=== PATIENT | male | born 1940 | race Caucasian/White ===

== ENCOUNTER 2022-12-27 12:21 | Inpatient (IN) ==
--- NOTE | 2022-12-27 12:47 | Emergency Department Note ---
Impression & Plan Hypoxia, Atrial fibrillation, Closed left hip fracture ED Provider Note NAME: FREDA [id number] YSABEL AGE: 82 SEX: M : 1940 ARRIVES VIA: Ambulance INFORMANT: Patient ED PROVIDER(S): Luciano Durham DO CHIEF COMPLAINT: fall HPI: Patient is an 82-year-old male who presents to the ER for left hip pain. Per report he fell twice today. He is having left hip pain and cannot get up or move around. Does have a history of dementia. Denies hitting his head or neck. No chest pain or shortness of breath. No belly pain, nausea, vomiting, or diarrhea. No tingling but admits to significant pain with any range of motion of the left hip. No dysuria, urgency, or frequency. PAST MEDICAL HISTORY:See Below PAST SURGICAL HISTORY:See Below FAMILY HISTORY:See Below SOCIAL HISTORY:See Below HOME MEDICATIONS:See Below ALLERGIES:See Below VITALS:See Below PHYSICAL EXAMINATION: GENERAL: Sitting up in bed, alert, well appearing, well nourished, no distress, non-toxic EYE EXAM: normal conjunctiva. PERRL and EOM's grossly intact. OROPHARYNX: no exudate, no erythema, lips, buccal mucosa, and tongue normal and mucous membranes are moist NECK: supple, no nuchal rigidity, no adenopathy, non-tender LUNGS: Clear to auscultation. Normal chest wall mechanics HEART: no murmurs, S1 normal and S2 normal ABDOMEN: abdomen soft, non-tender, normo-active bowel sounds, no masses, no rebound or guarding. BACK: Back is symmetrical on inspection and there is no deformity, no midline tenderness, no CVA tenderness. UPPER EXTREMITIES: upper extremities are grossly normal. LOWER EXTREMITIES: No tenderness throughout palpation of the entire right lower extremity. Tenderness of the left hip with significant pain with any movement. Denies any weakness or numbness. No tenderness throughout the mid femur knee t ib-fib ankle or foot NEURO EXAM: Normal sensorium, cranial nerves II-XII grossly intact, normal spee ch, no gross weakness of arms. MEDICAL DECISION MAKING: Patient is a 2-year-old male who presents ER following a fall. History was obtained from the nursing staff who I contacted at the senior care as well as the guards at bedside and the patient. IV was established blood work was obtained. He was found to be hypoxic consequently remained on 2 L nasal cannula. This is new O2 requirement for him per nursing staff at present. IV was established blood work was obtained. Labs show leukocytosis of 14,000. No significant anemia. INR unremarkable. No external signs of trauma. BMP with a creatinine 1.4. T bili slightly up at 2.5. No belly pain. Troponin was negative. UA was clean. CT of the head was negative. X-rays of the hip and pelvis show a left hip fracture. Patient was updated in regards to these findings. Discussed with Dr. Ortega from orthopedic surgery. Discussed with Lakhwinder Alex in regards to admission and further work-up. External records were reviewed from the senior care. Triage Nursing notes reviewed. Limited review of prior medical records performed Vital Signs: reviewed and remarkable for hypoxia Differential diagnosis: Differential diagnoses include major intracranial, cervical, spinal, thoracic, abdominal, pelvic and neurologic injury. Fracture, contusion, sprain, strain, laceration, abrasions included as well. ER treatment provided: See below Diagnostics interpreted by me include EKG and cardiac monitoring as listed below: -Cardiac Monitoring: An order was placed for continuous cardiac monitoring. The monitor shows a rate of 101 with sinus rhythm. -ECG: A. fib rate of 112 Normal axis No PVCs Nonspecific ST wave changes Poor baseline QTC 480 Septal Q waves -Laboratory studies:Interpreted by me as stated above in MDM and shown below. Imaging studies: Xrays: As interpreted by me: X-rays of the pelvis and left hip show left hip fracture CTs show: CT head was negative Consultation(s): Discussed with Dr. Ortega from orthopedic surgery and he will see the patient. Discussed with Dr. Lakhwinder Alex in regards to admission work-up and further treatment Procedures:none Critical Care: I have personally spent 31 minutes of critical care time in the direct management of this patient. This includes bedside care, interpretation of diagnostic studies, and testing, discussion with consultants, patient, and family members, and other required patient management activities. This 31 minutes is in excess of all separately billable procedures. Past Med/Surg History Medical History (Updated 12/27/22 @ 15:56 by Luciano Durham DO) Atrial fibrillation Cataracts, bilateral Hypertension Periodic headache syndrome Schizophrenia Severe alcohol use disorder Unspecified dementia, unspecified severity, with other behavioral disturbance Social History Smoking Status: Unknown if ever smoked Feels Safe at Home: Yes Allergies Allergies Allergy/AdvReac Type Severity Reaction Status Date / Time No Known Allergies Allergy Unverified 12/27/22 14:23 Home Meds Home Medications Medication Instructions Recorded Confirmed acetaminophen 500 mg tablet 500 mg PO BID 12/27/22 12/27/22 clopidogrel 75 mg tablet 75 mg PO DAILY 12/27/22 12/27/22 diltiazem HCl 180 mg 180 mg PO DAILY 12/27/22 12/27/22 capsule,extended release 24 hr (Cardizem CD) donepezil 5 mg tablet 5 mg PO DAILY 12/27/22 12/27/22 furosemide 40 mg tablet 40 mg PO BID 12/27/22 12/27/22 potassium chloride 20 mEq 20 meq PO BID 12/27/22 12/27/22 tablet,extended release(part/cryst) Results & Data (ED) Vital Signs Vital Signs - 24 hr 12/27/22 12:31 12/27/22 12:45 12/27/22 12:50 Temperature 36.8 C Temperature Source Oral Pulse Rate 104 H 96 H 109 H Pulse Rate from SpO2 Sensor 101 H 108 H Pulse Rhythm Regular Pulse Strength Normal Respiratory Rate 20 23 26 H Respiratory Effort / Characteristics Non-Labored Spontaneous Respiratory Depth Normal Blood Pressure 147/93 H Blood Pressure Mean 111 Blood Pressure Position Lying Pulse Oximetry 90 96 93 Oxygen Delivery Method Room Air Nasal Cannula Nasal Cannula Oxygen Flow Rate 3 3 Sepsis Recent Fever Within 48 Hours No Sepsis New/Unexplained Change in Mental Status No Sepsis Action Taken by Nursing No Action Required 12/27/22 13:00 12/27/22 13:10 12/27/22 13:20 Temperature Temperature Source Pulse Rate 106 H 111 H 107 H Pulse Rate from SpO2 Sensor 102 H Pulse Rhythm Pulse Strength Respiratory Rate 30 H 30 H 24 Respiratory Effort / Characteristics Respiratory Depth Blood Pressure Blood Pressure Mean Blood Pressure Position Pulse Oximetry 93 Oxygen Delivery Method Nasal Cannula Oxygen Flow Rate 3 Sepsis Recent Fever Within 48 Hours Sepsis New/Unexplained Change in Mental Status Sepsis Action Taken by Nursing 12/27/22 13:30 12/27/22 13:40 12/27/22 13:50 Temperature Temperature Source Pulse Rate 104 H 110 H 96 H Pulse Rate from SpO2 Sensor 108 H Pulse Rhythm Pulse Strength Respiratory Rate 29 H 29 H 18 Respiratory Effort / Characteristics Respiratory Depth Blood Pressure Blood Pressure Mean Blood Pressure Position Pulse Oximetry 95 Oxygen Delivery Method Nasal Cannula Oxygen Flow Rate 3 Sepsis Recent Fever Within 48 Hours Sepsis New/Unexplained Change in Mental Status Sepsis Action Taken by Nursing 12/27/22 14:00 12/27/22 14:14 12/27/22 14:20 Temperature Temperature Source Pulse Rate 104 H 106 H 100 H Pulse Rate from SpO2 Sensor 104 H Pulse Rhythm Pulse Strength Respiratory Rate 24 31 H 28 H Respiratory Effort / Characteristics Respiratory Depth Blood Pressure Blood Pressure Mean Blood Pressure Position Pulse Oximetry 93 Oxygen Delivery Method Oxygen Flow Rate Sepsis Recent Fever Within 48 Hours Sepsis New/Unexplained Change in Mental Status Sepsis Action Taken by Nursing 12/27/22 14:30 12/27/22 14:40 12/27/22 14:50 Temperature Temperature Source Pulse Rate 112 H 110 H 104 H Pulse Rate from SpO2 Sensor Pulse Rhythm Pulse Strength Respiratory Rate 26 H 24 26 H Respiratory Effort / Characteristics Respiratory Depth Blood Pressure 152/103 H Blood Pressure Mean 119 Blood Pressure Position Pulse Oximetry 92 Oxygen Delivery Method Room Air Oxygen Flow Rate 3 Sepsis Recent Fever Within 48 Hours Sepsis New/Unexplained Change in Mental Status Sepsis Action Taken by Nursing 12/27/22 15:00 12/27/22 15:10 12/27/22 15:20 Temperature Temperature Source Pulse Rate 109 H 106 H 122 H Pulse Rate from SpO2 Sensor Pulse Rhythm Pulse Strength Respiratory Rate 27 H 20 19 Respiratory Effort / Characteristics Respiratory Depth Blood Pressure Blood Pressure Mean Blood Pressure Position Pulse Oximetry Oxygen Delivery Method Oxygen Flow Rate Sepsis Recent Fever Within 48 Hours Sepsis New/Unexplained Change in Mental Status Sepsis Action Taken by Nursing 12/27/22 15:30 12/27/22 15:40 12/27/22 15:42 Temperature Temperature Source Pulse Rate 108 H 106 H Pulse Rate from SpO2 Sensor 113 H Pulse Rhythm Pulse Strength Respiratory Rate 22 24 29 H Respiratory Effort / Characteristics Respiratory Depth Blood Pressure Blood Pressure Mean Blood Pressure Position Pulse Oximetry 94 Oxygen Delivery Method Oxygen Flow Rate Sepsis Recent Fever Within 48 Hours Sepsis New/Unexplained Change in Mental Status Sepsis Action Taken by Nursing 12/27/22 15:42 Temperature Temperature Source Pulse Rate Pulse Rate from SpO2 Sensor Pulse Rhythm Pulse Strength Respiratory Rate Respiratory Effort / Characteristics Respiratory Depth Blood Pressure 152/103 H Blood Pressure Mean 119 Blood Pressure Position Pulse Oximetry Oxygen Delivery Method Oxygen Flow Rate Sepsis Recent Fever Within 48 Hours Sepsis New/Unexplained Change in Mental Status Sepsis Action Taken by Nursing Laboratory Data 12/27/22 13:02 12/27/22 13:02 Lab Results 12/27/22 12/27/2223 Range/Units 13:02 13:02 13:02 WBC 14.81 H (4.8-10.8) K/ul RBC 5.19 (4.70-6.10) M/uL Hgb 17.1 (14.0-18.0) g/dl Hct 48.9 (42.0-52.0) % MCV 94.2 (80.0-100.0) fL MCH 32.9 (25.0-34.0) pg MCHC 35.0 (32.0-36.0) g/dL RDW Std Deviation 50.7 H (36.4-46.3) fL RDW Coeff of Sammy 14.6 H (11.5-14.5) % Plt Count 132 (130-400) K/uL MPV 13.0 H (9.4-12.4) fL Immature Gran % (Auto) 0.6 % Neut % (Auto) 89.4 % Lymph % (Auto) 3.8 % [place] % (Auto) 5.8 % Eos % (Auto) 0.1 % Baso % (Auto) 0.3 % Neut # (Auto) 13.24 H (1.40-6.50) K/uL Lymph # (Auto) 0.56 L (1.2-3.4) K/uL [place] # (Auto) 0.86 H (0.11-0.59) K/uL Eos # (Auto) 0.01 (0-0.50) K/uL Baso # (Auto) 0.05 (0-0.2) K/uL Immature Gran # (Auto) 0.09 (0.01-0.20) K/uL PT 11.2 (9.0-12.0) Seconds INR 1.1 (0.9-1.1) APTT 27.1 (21.0-31.0) Seconds PTT Ratio 1.0 Sodium 144 (136-145) mmol/L Potassium 3.8 (3.5-5.1) mmol/L Chloride 107 (98-107) mmol/L Carbon Dioxide 29 (21-32) mmol/L Anion Gap 8 (3-11) BUN 25 H (6-23) mg/dl Creatinine 1.41 H (0.6-1.4) mg/dl Est Cr Clr Drug Dosing 51.6 ml/min Est GFR ( Amer) 53.4 ml/min Est GFR (Non-Af Amer) 46.1 ml/min BUN/Creatinine Ratio 17.7 (10-20) Glucose 143 H (70-99(Fasting)) mg/dl Calcium 9.8 (8.5-10.1) mg/dl Total Bilirubin 2.5 H (0.2-1.0) mg/dl AST 22 (13-39) U/L ALT 18 (7-52) U/L Alkaline Phosphatase 43 (34-104) U/L Troponin I High Sens 6.6 (0-20) pg/ml Total Protein 7.5 (6.0-8.3) gm/dl Albumin 4.4 (3.4-5.0) gm/dl Globulin 3.1 (2.5-4.0) gm/dl Albumin/Globulin Ratio 1.4 (0.9-2) Urine Color Urine Appearance (Clear) Urine pH (4.5-7.5) Ur Specific [place] (1.000-1.030) Urine Protein (Negative) Urine Glucose (UA) (Negative) Urine Ketones (Negative) Urine Blood (Negative) Urine Nitrite (Negative) Urine Bilirubin (Negative) Urine Urobilinogen (Negative) Ur Leukocyte Esterase (Negative) Urine WBC (Auto) (0-5) /hpf Urine RBC (Auto) (0-4) /hpf U Hyaline Cast (Auto) (0-5) /lpf U Epithel Cells (Auto) (0-5) /lpf Urine Bacteria (Auto) (Negative) SARS-CoV-2, RNA, NAAT (NEGATIVE) 12/27/22 12/27/22 Range/Units 13:02 15:05 WBC (4.8-10.8) K/ul RBC (4.70-6.10) M/uL Hgb (14.0-18.0) g/dl Hct (42.0-52.0) % MCV (80.0-100.0) fL MCH (25.0-34.0) pg MCHC (32.0-36.0) g/dL RDW Std Deviation (36.4-46.3) fL RDW Coeff of Sammy (11.5-14.5) % Plt Count (130-400) K/uL MPV (9.4-12.4) fL Immature Gran % (Auto) % Neut % (Auto) % Lymph % (Auto) % [place] % (Auto) % Eos % (Auto) % Baso % (Auto) % Neut # (Auto) (1.40-6.50) K/uL Lymph # (Auto) (1.2-3.4) K/uL [place] # (Auto) (0.11-0.59) K/uL Eos # (Auto) (0-0.50) K/uL Baso # (Auto) (0-0.2) K/uL Immature Gran # (Auto) (0.01-0.20) K/uL PT (9.0-12.0) Seconds INR (0.9-1.1) APTT (21.0-31.0) Seconds PTT Ratio Sodium (136-145) mmol/L Potassium (3.5-5.1) mmol/L Chloride (98-107) mmol/L Carbon Dioxide (21-32) mmol/L Anion Gap (3-11) BUN (6-23) mg/dl Creatinine (0.6-1.4) mg/dl Est Cr Clr Drug Dosing ml/min Est GFR ( Amer) ml/min Est GFR (Non-Af Amer) ml/min BUN/Creatinine Ratio (10-20) Glucose (70-99(Fasting)) mg/dl Calcium (8.5-10.1) mg/dl Total Bilirubin (0.2-1.0) mg/dl AST (13-39) U/L ALT (7-52) U/L Alkaline Phosphatase (34-104) U/L Troponin I High Sens (0-20) pg/ml Total Protein (6.0-8.3) gm/dl Albumin (3.4-5.0) gm/dl Globulin (2.5-4.0) gm/dl Albumin/Globulin Ratio (0.9-2) Urine Color Yellow Urine Appearance Clear (Clear) Urine pH 5.5 (4.5-7.5) Ur Specific [place] 1.016 (1.000-1.030) Urine Protein Negative (Negative) Urine Glucose (UA) Negative (Negative) Urine Ketones Negative (Negative) Urine Blood 2+ H (Negative) Urine Nitrite Negative (Negative) Urine Bilirubin Negative (Negative) Urine Urobilinogen Negative (Negative) Ur Leukocyte Esterase Negative (Negative) Urine WBC (Auto) 1-5 (0-5) /hpf Urine RBC (Auto) 10-30 H (0-4) /hpf U Hyaline Cast (Auto) 1-5 (0-5) /lpf U Epithel Cells (Auto) 5-10 H (0-5) /lpf Urine Bacteria (Auto) Negative (Negative) SARS-CoV-2, RNA, NAAT POSITIVE A* (NEGATIVE) Imaging Data Radiologist's Impression: Head CT 12/27/22 12:39 CT head/brain wo con CLINICAL HISTORY: 82 years-old Male with fall. Acute head injury status post fall TECHNIQUE: Multiple axial CT images of the head were obtained without contrast. A dose lowering technique was utilized adhering to the principles of ALARA. CT DOSE: 614.27 mGy.cm COMPARISON: None. FINDINGS: No acute intracranial hemorrhage, midline shift, intracranial mass, hydrocephalus, territorial ischemia or abnormal extra-axial collection. Involutional changes with chronic microvascular ischemic disease. Cerebral vascular calcifications. The calvarium is intact. The paranasal sinuses, mastoid air cells, and middle ear cavities are clear. IMPRESSION: No acute intracranial abnormality or calvarial fracture. ACT 112: Negative or not required by law. The above report was generated using voice recognition software. It may contain grammatical, syntax or spelling errors. Electronically signed by: Espinoza Fung M.D. 12/27/2022 2:25 PM Hip/Pelvis X-Ray 12/27/22 12:39 XR hip LT 2V w pelvis CLINICAL HISTORY: Left hip pain following fall. COMPARISON: None FINDINGS: Right hip arthroplasty is partially imaged. Note is made of an acute displaced left femoral neck fracture. Fracture is angulated. There is a possible bowel containing left inguinal hernia. No additional acute fractures. IMPRESSION: 1. Acute displaced left femoral neck fracture. 2. Possible bowel containing left inguinal hernia. ACT 112: Negative or not required by law. Electronically signed by: Eliseo Wilson M.D. 12/27/2022 2:13 PM Chest X-Ray 12/27/22 12:42 XR chest 1V portable HISTORY: Left hip fracture. fall COMPARISON: None. FINDINGS: No pneumothorax. No pleural effusions. The cardiac silhouette is mildly enlarged. No rib fractures identified. Right apical lobular density is likely related to the normal mediastinal structures on this AP portable study. Questionable focal irregular density overlying the left heart border. IMPRESSION: 1. Mild cardiomegaly. 2. Questionable focal irregular density overlying the left heart border and a right apical lobular density. This may be due to the supine portable technique. Therefore, follow-up PA and lateral views of the chest are recommended once the patient is able to exclude the possibility of pulmonary lesions. ACT 112: Negative or not required by law. Electronically signed by: Kip Alejo M.D. 12/27/2022 2:16 PM Discharge Plan Visit Data Chief Complaint: Fall Stated Complaint: FALL ED Provider: Luciano Durham Discharge Problem: Hypoxia, Atrial fibrillation, Closed left hip fracture Forms Stand Alone Forms: [facility] Prescriptions Prescriptions: No Action furosemide 40 mg Tablet 40 mg PO BID donepezil 5 mg Tablet 5 mg PO DAILY diltiazem HCl [Cardizem CD] 180 mg Capsule,Extended Release 24hr 180 mg PO DAILY clopidogrel 75 mg Tablet 75 mg PO DAILY acetaminophen 500 mg Tablet 500 mg PO BID potassium chloride [K-Dur] 20 mEq Tablet,Er Particles/Crystals 20 meq PO BID Referrals Referrals: Julio GOLD [Primary Care Provider] -
[2022-12-27 13:26] LABS: Basophils # (auto) 0.05 K/uL (0-0.2); Basophils % (auto) 0.3 %; Eosinophils # (auto) 0.01 K/uL (0-0.50); Eosinophils % (auto) 0.1 %; Hematocrit (blood only) 48.9 % (42.0-52.0); Hemoglobin 17.1 g/dl (14.0-18.0); Immature Granulocytes # (auto) 0.09 K/uL (0.01-0.20); Immature Granulocytes % (auto) 0.6 %; Lymphocytes # (auto) 0.56 K/uL (1.2-3.4); Lymphocytes % (auto) 3.8 %; Mean Corpuscular Hemoglobin 32.9 pg (25.0-34.0); Mean Corpuscular Volume 94.2 fL (80.0-100.0); Monocytes # (auto) 0.86 K/uL (0.11-0.59); Monocytes % (auto) 5.8 %; Neutrophils # (auto) 13.24 K/uL (1.40-6.50); Neutrophils % (auto) 89.4 %; Platelet Count 132 K/uL (130-400); RDW Coefficient of Variation 14.6 % (11.5-14.5); RDW Standard Deviation 50.7 fL (36.4-46.3); Red Blood Count 5.19 M/uL (4.70-6.10); White Blood Count 14.81 K/ul (4.8-10.8)
[2022-12-27 13:52] LABS: Appearance Urine Clear (Clear); Bacteria Urine Automated Negative (Negative); Bilirubin Urine Negative (Negative); Blood Urine 2+ (Negative); Color Urine Yellow; Glucose Urine UA Negative (Negative); Ketones Urine Negative (Negative); Leukocyte Esterase Urine Negative (Negative); Nitrite Urine Negative (Negative); Protein Urine Negative (Negative); Specific Gravity Urine 1.016 (1.000-1.030); Urobilinogen Urine Negative (Negative); pH Urine 5.5 (4.5-7.5)
[2022-12-27 13:55] LABS: Albumin Globulin Ratio 1.4 (0.9-2); Albumin Level 4.4 gm/dl (3.4-5.0); BUN Creatinine Ratio 17.7 (10-20); Bilirubin,Total 2.5 mg/dl (0.2-1.0); Calcium 9.8 mg/dl (8.5-10.1); Creatinine Clr Calc Pharmacy 51.6 ml/min; Est GFR (African American) 53.4 ml/min; Est GFR (Non-African American) 46.1 ml/min; Globulin 3.1 gm/dl (2.5-4.0); Potassium 3.8 mmol/L (3.5-5.1); Total Protein 7.5 gm/dl (6.0-8.3)
[2022-12-27 14:06] LABS: INR 1.1 (0.9-1.1); Partial Thromboplastin Time 27.1 Seconds (21.0-31.0); Prothrombin Time 11.2 Seconds (9.0-12.0)
--- NOTE | 2022-12-27 14:09 | History & Physical Report ---
Date of Service December 27, 2022 Assessment & Plan (1) Closed left hip fracture: Plan: Acetaminophen 1 g p.o./IV 3 times daily Morphine 2 to 4 mg IV every 4 hourly as needed Heart healthy diet, n.p.o. after midnight Muro catheter Consult orthopedics for definitive surgical management tomorrow once heart rate is better controlled (2) Hypoxia: Plan: No significant pathology found on chest x-ray - repeat 2 view CXR recommended following hip # surgery Continue incentive spirometer (3) Atrial fibrillation: Plan: This does not appear to be new is listed on his past medical history however he is not on anticoagulation for unclear reasons - unknown reason when calling [facility] Continue diltiazem CD1 180 mg p.o. daily for rate control If heart rate remains elevated after initial IV fluids we will attempt rate control with metoprolol TTE (4) Unspecified dementia, unspecified severity, with other behavioral di sturbance: Plan: Continue donepezil 5 mg p.o. daily (5) Hypertension: Plan: Continue diltiazem CD 180 mg p.o. daily (6) Microscopic hematuria: Plan: Follow-up outpatient, recommend repeating in 4 weeks however suspect due to trauma from Muro catheter on admission (7) Schizophrenia: Plan: Reported history of this however no delusions or hallucinations noted by RN in the [facility] Confirm not treated with antipsychotics Plan VTE Prophylaxis - Lovenox now then hold for operative management tomorrow Diet - heart healthy, NPO after midnight Disposition - admit to med/tele Admission and Anticipated Discharge Date Admission Date: December 27, 2022 History of Present Illness Chief Complaint: Left hip pain following a fall Primary Care Provider: [facility] Tyler Laguerre is an 82 year old on the dementia unit at [facility] who presents to the ER with left hip pain after falling twice today. Unclear history from the patient. He reports slipping while holding onto a sink. Reportedly the toilet and sink are all one piece and somehow he slipped on ur ine. He denies any chest pain, shortness of breath, dizziness prior to falling. Difficulty ambulating with left leg pain after voiding. Reportedly he was complaining of left elbow pain at the present although he denies this currently. He denies any fever, chills, cough, abdominal pain, diarrhea. Allergies Allergy/AdvReac Type Severity Reaction Status Date / Time No Known Allergies Allergy Unverified 12/27/22 14:23 Home Medications Medication Instructions Recorded Confirmed Type acetaminophen 500 mg tablet 500 mg PO BID 12/27/22 12/27/22 History clopidogrel 75 mg tablet 75 mg PO DAILY 12/27/22 12/27/22 History diltiazem HCl 180 mg 180 mg PO DAILY 12/27/22 12/27/22 History capsule,extended release 24 hr (Cardizem CD) donepezil 5 mg tablet 5 mg PO DAILY 12/27/22 12/27/22 History furosemide 40 mg tablet 40 mg PO BID 12/27/22 12/27/22 History potassium chloride 20 mEq 20 meq PO BID 12/27/22 12/27/22 History tablet,extended release(part/cryst) Past Med/Surg History Medical History Atrial fibrillation Cataracts, bilateral Hypertension Periodic headache syndrome Schizophrenia Severe alcohol use disorder Unspecified dementia, unspecified severity, with other behavioral disturbance Social History Smoking Status: Unknown if ever smoked Hx Alcohol Use: No Hx Substance Use: No Preferred Language: Bangladeshi Communication Ability: Effective Candle Wrapper Required: No Beliefs That Will Affect Care: None Current Living Situation: Other Current Living Situation Comment: [facility] Feels Safe at Home: Yes Assistive Devices: Hospital Bed and Oxygen - Continuous Review of Systems Review of Systems: All systems reviewed & are unremarkable except as noted in HPI & below Physical Exam Constitutional: WD/WN, vitals as above Eyes: PERRL, conjunctivae normal, anicteric sclerae Respiratory: normal respiratory effort; no respiratory distress Auscultation: + crackles (bibasal); breath sounds present, no diminished lung sounds, no rales, no rhonchi and no wheezes Cardiovascular: Rate/Rhythm: + tachycardic and + irregularly irregular Heart Sounds: no murmur Extremities: normal capillary refill; no calf tenderness and no pedal edema Gastrointestinal (Abdomen): normal bowel sounds, soft, nontender, no hepatosplenomegaly Musculoskeletal: no cyanosis or clubbing, extremities motor strength 5/5 Skin: no rashes, warm and dry Neurologic: moves all extremities and awake; not confused Motor/Sensory: no sensory deficit Psychiatric: Orientation: alert and oriented to person; + not oriented to place and + not oriented to time Results & Data Results & Data ([facility]) Vital Signs (Past 12 Hours) Vital Signs Temp Pulse Resp BP Pulse Ox O2 Del Method O2 Flow Rate 12/27/22 13:40 110 H 29 H 12/27/22 13:30 104 H 29 H 95 Nasal Cannula 3 12/27/22 13:20 107 H 24 93 Nasal Cannula 3 12/27/22 13:10 111 H 30 H 12/27/22 13:00 106 H 30 H 12/27/22 12:50 109 H 26 H 93 Nasal Cannula 3 12/27/22 12:45 96 H 23 96 Nasal Cannula 3 12/27/22 12:31 36.8 C 104 H 20 147/93 H 90 Room Air Laboratory Results Abnormal lab results 12/27/22 12/27/22 12/27/22 Range/Units 13:02 13:02 13:02 WBC 14.81 H (4.8-10.8) K/ul RDW Std Deviation 50.7 H (36.4-46.3) fL RDW Coeff of Sammy 14.6 H (11.5-14.5) % MPV 13.0 H (9.4-12.4) fL Neut # (Auto) 13.24 H (1.40-6.50) K/uL Lymph # (Auto) 0.56 L (1.2-3.4) K/uL [place] # (Auto) 0.86 H (0.11-0.59) K/uL BUN 25 H (6-23) mg/dl Creatinine 1.41 H (0.6-1.4) mg/dl Glucose 143 H (70-99(Fasting)) mg/dl Total Bilirubin 2.5 H (0.2-1.0) mg/dl Urine Blood 2+ H (Negative) Urine RBC (Auto) 10-30 H (0-4) /hpf U Epithel Cells (Auto) 5-10 H (0-5) /lpf Diagnostic Findings CT head/brain wo con CLINICAL HISTORY: 82 years-old Male with fall. Acute head injury status post fall TECHNIQUE: Multiple axial CT images of the head were obtained without contrast. A dose lowering technique was utilized adhering to the principles of ALARA. CT DOSE: 614.27 mGy.cm COMPARISON: None. FINDINGS: No acute intracranial hemorrhage, midline shift, intracranial mass, hydrocephalus, territorial ischemia or abnormal extra-axial collection. Involutional changes with chronic microvascular ischemic disease. Cerebral vascular calcifications. The calvarium is intact. The paranasal sinuses, mastoid air cells, and middle ear cavities are clear. IMPRESSION: No acute intracranial abnormality or calvarial fracture. XR chest 1V portable HISTORY: Left hip fracture. fall COMPARISON: None. FINDINGS: No pneumothorax. No pleural effusions. The cardiac silhouette is mildly enlarged. No rib fractures identified. Right apical lobular density is likely related to the normal mediastinal structures on this AP portable study. Questionable focal irregular density overlying the left heart border. IMPRESSION: 1. Mild cardiomegaly. 2. Questionable focal irregular density overlying the left heart border and a right apical lobular density. This may be due to the supine portable technique. Therefore, follow-up PA and lateral views of the chest are recommended once the patient is able to exclude the possibility of pulmonary lesions. XR hip LT 2V w pelvis CLINICAL HISTORY: Left hip pain following fall. COMPARISON: None FINDINGS: Right hip arthroplasty is partially imaged. Note is made of an acute displaced left femoral neck fracture. Fracture is angulated. There is a possible bowel containing left inguinal hernia. No additional acute fractures. IMPRESSION: 1. Acute displaced left femoral neck fracture. 2. Possible bowel containing left inguinal hernia. Medications Administered ER medications given: None ECG Indication: tachycardia Rate (beats per minute): 112 Rhythm: atrial fibrillation Findings: no acute ischemic change Comparison ECG Date: no prior available Code Status & VTE Plan Code Status Full VTE Prophylaxis Plan VTE Prophylaxis will be ordered: Yes PG Care Time/CCT Total # of Minutes Spent Total Time Spent with Patient: Total time spent is greater than 50% in coordination of care (as documented) at patient's floor/unit and/or counseling patient: Coding Level of Care Code 94609 INT INP/OBS CARE 2MIN Diagnoses Closed left hip fracture S72.002A Hypoxia R09.02 Atrial fibrillation I48.91 Unspecified dementia, unspecified severity, with other behavioral disturbance F03.918 Hypertension I10 Microscopic hematuria R31.29 Schizophrenia F20.9
--- NOTE | 2022-12-27 14:15 | XRay Report ---
XR hip LT 2V w pelvis CLINICAL HISTORY: Left hip pain following fall. COMPARISON: None FINDINGS: Right hip arthroplasty is partially imaged. Note is made of an acute displaced left femora l neck fracture. Fracture is angulated. There is a possible bowel containing left inguinal hernia. No additional acute fractures. IMPRESSION: 1. Acute displaced left femoral neck fracture. 2. Possible bowel containing left inguinal hernia. ACT 112: Negative or not required by law. Electronically signed by: Eliseo Wilson M.D. 12/27/2022 2:13 PM
--- NOTE | 2022-12-27 14:18 | XRay Report ---
XR chest 1V portable HISTORY: Left hip fracture. fall COMPARISON: None. FINDINGS: No pneumothorax. No pleural effusions. The cardiac silhouette is mildly enlarged. No rib fr actures identified. Right apical lobular density is likely related to the normal mediastinal structur es on this AP portable study. Questionable focal irregular density overlying the left heart border. IMPRESSION: 1. Mild cardiomegaly. 2. Questionable focal irregular density overlying the left heart border and a right apical lobular de nsity. This may be due to the supine portable technique. Therefore, follow-up PA and lateral views of the chest are recommended once the patient is able to exclude the possibility of pulmonary lesions. ACT 112: Negative or not required by law. Electronically signed by: Kip Alejo M.D. 12/27/2022 2:16 PM
--- NOTE | 2022-12-27 14:27 | CT Scan Report ---
CT head/brain wo con CLINICAL HISTORY: 82 years-old Male with fall. Acute head injury status post fall TECHNIQUE: Multiple axial CT images of the head were obtained without contrast. A dose lowering tech nique was utilized adhering to the principles of ALARA. CT DOSE: 614.27 mGy.cm COMPARISON: None. FINDINGS: No acute intracranial hemorrhage, midline shift, intracranial mass, hydrocephalus, territorial ischem ia or abnormal extra-axial collection. Involutional changes with chronic microvascular ischemic disea se. Cerebral vascular calcifications. The calvarium is intact. The paranasal sinuses, mastoid air cells, and middle ear cavities are clear . IMPRESSION: No acute intracranial abnormality or calvarial fracture. ACT 112: Negative or not required by law. The above report was generated using voice recognition software. It may contain grammatical, syntax o r spelling errors. Electronically signed by: Espinoza Fung M.D. 12/27/2022 2:25 PM
[2022-12-27 15:21] LABS: Troponin I High Sensitivity 6.6 pg/ml (0-20)
--- NOTE | 2022-12-27 16:10 | Electrocardiogram Report ---
Test Reason : Blood Pressure : / mmHG Vent. Rate : 112 BPM Atrial Rate : 094 BPM P-R Int : 000 ms QRS Dur : 092 ms QT Int : 352 ms P-R-T Axes : 000 027 -41 degrees QTc Int : 480 ms Poor data quality, interpretation may be adversely affected Atrial fibrillation with rapid ventricular response Septal infarct , age undetermined Abnormal ECG No previous ECGs available Confirmed by Jean-Paul Barrientos ([id number]) on 12/27/2022 4:10:24 PM Referred By: [facility] Confirmed By:Jean-Paul Barrientos
[2022-12-27] MEDS ORDERED: NALOXONE HCL 0.4 MG/1 ML VIAL/CARP IV PRN (16:23)
[2022-12-27] MEDS ORDERED: MAGNESIUM HYDROXIDE SUSP 30 ML UDC PO PRN (16:23)
[2022-12-27] MEDS ORDERED: bisacodyL 10 MG SUPP PR PRN (16:23)
[2022-12-27] MEDS ORDERED: MoRPHine SULFATE 4 MG/ML 1 ML CARP\\VIAL IV PRN (16:23)
[2022-12-27] MEDS ORDERED: MoRPHine SULFATE 2 MG/ML CARP IV PRN (16:23)
--- NOTE | 2022-12-27 17:06 | Anesthesiology Consultation ---
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 Surgery Operation Date: 12/28/22 08:50 Proposed Procedures p Left Cemented Bipolar Arthroplasty - Nathan Ortega MD Height/Weight Height: 5 ft 11 in Weight: 112.8 kg Allergies Allergy/AdvReac Type Severity Reaction Status Date / Time No Known Allergies Allergy Unverified 12/27/22 14:23 Medications Home Medications Medication Instructions Recorded Confirmed Last Taken acetaminophen 500 mg tablet 500 mg PO BID 12/27/22 12/27/22 12/27/22 clopidogrel 75 mg tablet 75 mg PO DAILY 12/27/22 12/27/22 12/27/22 diltiazem HCl 180 mg 180 mg PO DAILY 12/27/22 12/27/22 12/27/22 capsule,extended release 24 hr (Cardizem CD) donepezil 5 mg tablet 5 mg PO DAILY 12/27/22 12/27/22 12/27/22 furosemide 40 mg tablet 40 mg PO BID 12/27/22 12/27/22 12/27/22 potassium chloride 20 mEq 20 meq PO BID 12/27/22 12/27/22 12/27/22 tablet,extended release(part/cryst) Past Medical History Medical History Atrial fibrillation Cataracts, bilateral Hypertension Periodic headache syndrome Schizophrenia Severe alcohol use disorder Unspecified dementia, unspecified severity, with other behavioral disturbance Social History Smoking Status: Unknown if ever smoked Physical Exam Vital Signs Last Vital Signs Temp 98.2 F 12/27/22 12:31 Pulse 124 H 12/27/22 16:50 Resp 23 12/27/22 16:50 BP 164/124 H 12/27/22 16:31 Pulse Ox 94 12/27/22 15:42 O2 Del Method 12/27/22 14:40 O2 Flow Rate 3 12/27/22 14:40 Testing Laboratory Results 12/27/22 13:02 12/27/22 13:02 PT 11.2 Seconds (9.0-12.0) 12/27/22 13:02 INR 1.1 (0.9-1.1) 12/27/22 13:02 APTT 27.1 Seconds (21.0-31.0) 12/27/22 13:02 Urine Color Yellow 12/27/22 13:02 Urine Appearance Clear (Clear) 12/27/22 13:02 Urine pH 5.5 (4.5-7.5) 12/27/22 13:02 Ur Specific [place] 1.016 (1.000-1.030) 12/27/22 13:02 Urine Protein Negative (Negative) 12/27/22 13:02 Urine Glucose (UA) Negative (Negative) 12/27/22 13:02 Urine Ketones Negative (Negative) 12/27/22 13:02 Urine Nitrite Negative (Negative) 12/27/22 13:02 Ur Leukocyte Esterase Negative (Negative) 12/27/22 13:02 Urine WBC (Auto) 1-5 /hpf (0-5) 12/27/22 13:02 Urine RBC (Auto) 10-30 /hpf (0-4) H 12/27/22 13:02 U Hyaline Cast (Auto) 1-5 /lpf (0-5) 12/27/22 13:02 U Epithel Cells (Auto) 5-10 /lpf (0-5) H 12/27/22 13:02 Urine Bacteria (Auto) Negative (Negative) 12/27/22 13:02 Electrocardiogram Date: 12/27/22 Poor data quality, interpretation may be adversely affected Atrial fibrillation with rapid ventricular response, rate 112 bpm Septal infarct , age undetermined Abnormal ECG No previous ECGs available Confirmed by Jean-Paul Barrientos ([id number]) on 12/27/2022 4:10:24 PM Chest X-Ray Date: 12/27/22 FINDINGS: No pneumothorax. No pleural effusions. The cardiac silhouette is mildly enlarged. No rib fractures identified. Right apical lobular density is likely related to the normal mediastinal structures on this AP portable study. Questionable focal irregular density overlying the left heart border. IMPRESSION: 1. Mild cardiomegaly. 2. Questionable focal irregular density overlying the left heart border and a right apical lobular density. This may be due to the supine portable technique. Therefore, follow-up PA and lateral views of the chest are recommended once the patient is able to exclude the possibility of pulmonary lesions.
--- NOTE | 2022-12-27 17:13 | Orthopedic Consultation ---
Date of Service December 27, 2022 Assessment & Plan (1) Closed left hip fracture: Patient is an 82-year-old gentleman with underlying dementia, schizophrenia, hypertension, atrial fibrillation status post an apparent fall with a displaced femoral neck fracture. He has been admitted by the medicine service, he will be medically optimized, and likely and indicated for surgical treatment/cemented bipolar hip arthroplasty. Based on his mental capacity currently I do not think he can give informed consent. Elected contact the [facility] about getting consent. I did try to explain the risk to him and he seemed a pretty not attentive. We will begin DVT prophylax include thigh teds and SCDs. Will keep him n.p.o. up after midnight and hopefully plan on fixing his hip by tomorrow. History of Present Illness Reason for Consultation: . Left hip fracture Requesting Physician: . Attending Physician: Lakhwinder Alex MD . Patient is an 82-year-old prisoner from [place] who presents after having several falls apparently today. Patient is very poor historian with underlying dementia and does not report a fall. Apparently had several falls. He was brought to emergency room where x-rays revealed a left displaced femoral neck fracture. Were consulted for evaluation. He is being admitted by the medicine service. Patient currently denies any particular pains. Allergies Allergy/AdvReac Type Severity Reaction Status Date / Time No Known Allergies Allergy Unverified 12/27/22 14:23 Home Medications Medication Instructions Recorded Confirmed Type acetaminophen 500 mg tablet 500 mg PO BID 12/27/22 12/27/22 History clopidogrel 75 mg tablet 75 mg PO DAILY 12/27/22 12/27/22 History diltiazem HCl 180 mg 180 mg PO DAILY 12/27/22 12/27/22 History capsule,extended release 24 hr (Cardizem CD) donepezil 5 mg tablet 5 mg PO DAILY 12/27/22 12/27/22 History furosemide 40 mg tablet 40 mg PO BID 12/27/22 12/27/22 History potassium chloride 20 mEq 20 meq PO BID 12/27/22 12/27/22 History tablet,extended release(part/cryst) Past Med/Surg History Medical History Atrial fibrillation Cataracts, bilateral Hypertension Periodic headache syndrome Schizophrenia Severe alcohol use disorder Unspecified dementia, unspecified severity, with other behavioral disturbance Social History Smoking Status: Unknown if ever smoked Feels Safe at Home: Yes Review of Systems All systems reviewed & are unremarkable except as noted in HPI & below. Physical Exam . Physical examination reveals a elderly male who is lying in bed. Morbid moderately obese. Examination of the left hip and leg reveals to be slightly shortened and externally rotated. There is no bruising. He does have marked pain with any type of hip motion. He can dorsiflex and plantarflex his foot appropriately. He is neurologically intact. Results & Data Results & Data Laboratory Results . Diagnostic Findings . X-rays of the pelvis and left hip reveal a displaced impacted femoral neck fracture. Minimal arthritic change. PG Care Time/CCT Total # of Minutes Spent Total Time Spent with Patient: Total time spent is greater than 50% in coordination of care (as documented) at patient's floor/unit and/or counseling patient: Coding Level of Care Code INP/OBS CONSULT LVL 5, 80 MIN Diagnoses Closed left hip fracture S72.002A
[2022-12-27] MEDS ORDERED: LACTATED RINGER'S 500 ML IV ONE (19:44)
[2022-12-27] MEDS ORDERED: ENOXAPARIN INJ 40 MG/0.4 ML SYR SQ ONE (20:00)
[2022-12-27] MEDS: DOCUSATE SODIUM/SENNA 50/8.6MG TAB PO SCH (20:43)
[2022-12-27] MEDS: ACETAMINOPHEN 500 MG TAB PO SCH (20:43)
[2022-12-28] MEDS: LACTATED RINGER'S 1,000 ML IV SCH ×3 (01:28→21:34)
[2022-12-28] MEDS: ACETAMINOPHEN 500 MG TAB PO SCH ×3 (08:02→22:29)
[2022-12-28] MEDS: dilTIAZem HCL 180 MG CAPCR PO SCH ×2 (08:02→08:09)
[2022-12-28] MEDS: DONEPEZIL HCL 5 MG TAB PO SCH (08:02)
[2022-12-28] MEDS ORDERED: dilTIAZem HCL 180 MG CAPCR PO SCH (09:00)
--- NOTE | 2022-12-28 09:06 | XCELERA ---
[id number]
[2022-12-28 09:29] LABS: Hemoglobin 15.3 g/dl (14.0-18.0); Mean Corpuscular Hemoglobin 31.9 pg (25.0-34.0); Mean Corpuscular Hgb Conc 33.3 g/dL (32.0-36.0); Mean Platelet Volume 13.3 fL (9.4-12.4); Platelet Count 119 K/uL (130-400); RDW Coefficient of Variation 14.6 % (11.5-14.5); RDW Standard Deviation 51.4 fL (36.4-46.3); Red Blood Count 4.79 M/uL (4.70-6.10); White Blood Count 14.14 K/ul (4.8-10.8)
[2022-12-28 09:41] LABS: BUN Creatinine Ratio 24.4 (10-20); Calcium 9.1 mg/dl (8.5-10.1); Creatinine Clr Calc Pharmacy 57.2 ml/min; Est GFR (African American) 60.6 ml/min; Est GFR (Non-African American) 52.3 ml/min; Potassium 3.8 mmol/L (3.5-5.1)
[2022-12-28 11:02] LABS: Basophils # (auto) 0.05 K/uL (0-0.2); Basophils % (auto) 0.4 %; Eosinophils # (auto) 0.13 K/uL (0-0.50); Eosinophils % (auto) 0.9 %; Immature Granulocytes # (auto) 0.07 K/uL (0.01-0.20); Immature Granulocytes % (auto) 0.5 %; Lymphocytes # (auto) 0.67 K/uL (1.2-3.4); Lymphocytes % (auto) 4.7 %; Monocytes # (auto) 1.23 K/uL (0.11-0.59); Monocytes % (auto) 8.7 %; Neutrophils # (auto) 11.99 K/uL (1.40-6.50); Neutrophils % (auto) 84.8 %
--- NOTE | 2022-12-28 15:46 | Hospitalist Progress Note ---
Date of Service December 28, 2022 Assessment & Plan (1) Closed left hip fracture: Plan: -Acetaminophen 1 g p.o./IV 3 times daily -Morphine 2 to 4 mg IV every 4 hourly as needed -Consent obtained from detention. Ortho proceeding with arthroplasty later today. -Muro catheter in place -DVT prophylaxis post surgical intervention (2) Hypoxia: Plan: -Given COVID-positive status and chest x-ray showing some opacities, possibly some overlying pneumonia on top of COVID-19 -After surgery, will cover with 3rd gen cephalosporin plus azithromycin. -We will consider dexamethasone for treatment of COVID-19 pending oxygen status tomorrow. (3) Atrial fibrillation: Plan: - Borderline not rate controlled with most of his rates being in the low 100s. -We will recheck after surgery. -If he continues to have borderline high heart rate, likely will increase diltiazem dosage. (4) Unspecified dementia, unspecified severity, with other behavioral disturbance: Plan: -Continue donepezil 5 mg p.o. daily (5) Hypertension: Plan: -Continue diltiazem CD 180 mg p.o. daily -Blood pressure has been well controlled since admission. (6) Microscopic hematuria: Plan: -Follow-up outpatient, recommend repeating in 4 weeks however suspect due to trauma from Muro catheter on admission (7) Schizophrenia: Plan: -Reported history of this however no delusions or hallucinations noted by RN in the [facility] -Confirm not treated with antipsychotics Plan VTE Prophylaxis -Lovenox after surgery completion. Diet -currently n.p.o. but heart healthy after surgery. Disposition -med/tele Admission and Anticipated Discharge Date Admission Date: December 27, 2022 Supervising Physician Co-Signing Physician Notes Chart reviewed, case discussed extensively with Dr. Burton When I went to see the patient, he was off the floor to the OR. Unable to personally see. Agree with above. Continue to follow. Subjective Patient seen at bedside this morning. No acute events reported overnight. Patient is pleasantly demented and resting comfortably. Reports no pain at this time. Remembers why he is here and understands that he fell yesterday. Able to state his name and the circumstance, however, gave me the incorrect date but with the correct year. Otherwise no new complaints at this time. Review of Systems Review of Systems: All systems reviewed & are unremarkable except as noted in HPI & below Physical Exam Constitutional: WD/WN, vitals as above Eyes: + anicteric sclerae Neck: normal visual inspection Respiratory: normal respiratory effort Auscultation: + bronchial breath sounds Cardiovascular: Rate/Rhythm: + irregularly irregular Heart Sounds: no murmur Extremities: no edema Gastrointestinal (Abdomen): normal bowel sounds, soft, nontender, no hepatosplenomegaly Musculoskeletal: Left leg shortened and in abduction and external rotation. Skin: no rashes, warm and dry Results & Data Results & Data ([facility]) Vital Signs (Past 12 Hours) Vital Signs Temp Pulse Pulse Resp BP BP Pulse Ox 12/28/22 15:03 37.5 C 97 H 20 125/77 90 12/28/22 12:00 37.0 C 89 20 110/72 90 12/28/22 08:41 12/28/22 08:16 37.0 C 111 H 20 123/85 92 12/28/22 07:03 105 H 12/28/22 06:00 108 H 12/28/22 04:00 Pulse Ox O2 Del Method O2 Del Method O2 Flow Rate O2 Flow Rate 12/28/22 15:03 Nasal Cannula 3 12/28/22 12:00 Nasal Cannula 3 12/28/22 08:41 Nasal Cannula 3 12/28/22 08:16 Nasal Cannula 3 12/28/22 07:03 12/28/22 06:00 12/28/22 04:00 93 Nasal Cannula 3
[2022-12-28] MEDS ORDERED: DEXAMETHASONE SOD INJ 4 MG/ML VIAL ONE (16:59)
[2022-12-28] MEDS ORDERED: LIDOCAINE 2% MPF LOCAL 5 ML VIAL INFIL ONE (16:59)
[2022-12-28] MEDS ORDERED: fentaNYL citrate 100 MCG/2 ML VIAL ONE ×2 (16:59→18:12)
[2022-12-28] MEDS ORDERED: ONDANSETRON INJ 2 MG/ML 2 ML VIAL ONE (16:59)
[2022-12-28] MEDS ORDERED: PROPOFOL IV EMULSION 10 MG/ML 20 ML VIAL IV ONE (16:59)
[2022-12-28] MEDS ORDERED: ROCURONIUM BROMIDE 10 MG/ML 5 ML VIAL IV ONE (16:59)
[2022-12-28] MEDS ORDERED: SUGAMMADEX SODIUM 200 MG/2 ML VIAL IV ONE (17:02)
[2022-12-28] MEDS ORDERED: ceFAZolin 2,000 MG/15 ML IV PUSH IV ONE (17:10)
[2022-12-28] MEDS ORDERED: SUCCINYLCHOLINE CHLORIDE 20 MG/ML 10 ML VIAL IV ONE (17:20)
[2022-12-28] MEDS ORDERED: ceFAZolin 2000MG 2,000 MG/15 ML SYR IV ONE (17:30)
--- NOTE | 2022-12-28 17:35 | History & Physical Bridge Note ---
Date of Service December 28, 2022 History & Physical Bridge Note I have examined the patient, reviewed the History & Physical and in the interval since the performance of the History & Physical I have noted the following changes of clinical significance: no changes noted
[2022-12-28] MEDS ORDERED: VANCOMYCIN HCL 1000MG/20ML VIAL ONE (17:53)
[2022-12-28] MEDS ORDERED: BUPIVACAINE/EPINEPHRINE 0.5% MPF 1:200,000 30 ML VIAL ONE (17:56)
[2022-12-28] MEDS ORDERED: HYDROmorphone INJ 2 MG/ML SYR/VIAL IV PRN (18:00)
[2022-12-28] MEDS ORDERED: ATROPINE SULFATE 0.1 MG/ML 10ML SYR IV PRN ×2 (18:00→19:56)
[2022-12-28] MEDS ORDERED: PROMETHAZINE HCL 12.5 MG in SODIUM CHLORIDE 0.9% 50 ML IV PRN (18:00)
[2022-12-28] MEDS ORDERED: ePHEDrine sulfate 50 MG/ML AMP IV PRN ×2 (18:00→19:56)
[2022-12-28] MEDS ORDERED: ONDANSETRON INJ 2 MG/ML 2 ML VIAL IV PRN (18:00)
[2022-12-28] MEDS ORDERED: fentaNYL citrate 100 MCG/2 ML VIAL IV PRN (18:00)
[2022-12-28] MEDS ORDERED: ePHEDrine sulfate 50 MG/ML SYR ONE (18:11)
[2022-12-28] MEDS ORDERED: LABETALOL HCL IV 5 MG/ML 20ML IV ONE (18:12)
--- NOTE | 2022-12-28 19:25 | Operative Report ---
PG Post Operative Report Pre & Post Diagnosis Operation Date: 12/28/22 11:00 Pre-Op Diagnosis: Left displaced femoral neck/hip Fracture Post-Op Diagnosis: Left displaced femoral neck/hip Fracture I identified the patient and participated in the time-out.: Yes Procedure Operation Date: 12/28/22 11:00 Actual Procedures p Left Cemented Bipolar Arthroplasty(Left) - Nathan Ortega MD Surgeon Nathan Ortega MD Auto Body Customizer Clemente Resendez PA-C Estimated Blood Loss 200 Findings Consistent with Post-Op Diagnosis Fluids 1500 cc Specimens Left femoral head sent for pathology Anesthesia Type General Complications none Disposition Accompanied Patient To Recovery: No Indications Patient is an 82-year-old inmate with significant dementia multiple other medical comorbidities sustained several falls recently. He had cute onset of pain was unable to ambulate. Brought to emergency room where x-rays were displaced femoral neck fracture. Was also found to be COVID-positive. He was admitted to hospital, medically optimized and indicated for surgical treatment. The patient could not give his own consent. We attempted to get this from the facility but they told us just to treat him like he had no family or a homeless person. Therefore we discussed this amongst the physicians and decided that surgical treatment was his best option. We decided proceed with a left cemented bipolar hip arthroplasty. Description of Procedure Operative implants consist of: 1. Malaika size 14 LD fracture fracture stem. 2. 13 mm centralizer. 3. 53 mm bipolar shell and liner. 4. 28 mm +7 neck metal femoral head. 5. Large distal cement restrictor. The patient was taken the operating, identified, placed on the operating table supine position protectors were properly padded. A general anesthetic had been implemented in the holding area due to his COVID status. The patient was then placed in the right lateral decubitus position. Axillary roll was placed. A Stulberg hip positioner was used for positioning. The left hip was then scrubbed with Hibiclens, prepped with ChloraPrep and draped in usual sterile fashion. A posterior lateral posterior left hip was then performed to curvilinear incision centered over the greater trochanter. Sharp dissection was carried through subcutaneous tissue down to the IT band gluteal fascia the IT band gluteal fascia incised longitudinally in line with skin incision. The underlying greater bursa was excised. It was very hemorrhagic posteriorly. The piriformis and external rotators were very carefully taken off the posterior aspect hip joint capsule. Great care was taken throughout the procedure to protect the sciatic nerve at all times. Posterior capsulotomy was then performed leaving flap for later repair. Hip was internally rotated. A femoral neck osteotomy cut was made with Final Cut just below the fracture site. The femoral neck and femoral head were removed. We sized the acetabulum to a 53. Attention drawn the femur. The proximal femur was entered with a Cook cutter followed by canal finder and lateralizing reamer. Then broached beginning with size 10 and progressing up to a 15. The 15 was pretty tight therefore we used a 14 stem. We trialed the hip and the +7 articular ball seem provide the most appropriate stability and leg lengths. We elect to place these implants. All trial implants were removed. A large cement root restrictor was placed distally. Double batch Palacos G cement was mixed. I did add an additional gram of vancomycin due to his medical issues and comorbidities. We injected the canal. A size 14 stem was placed. Once the cement hardened a +7/28 mm articular ball was placed with a 53 bipolar shell and liner. Hip was located once again found to be stable. Attention drawn toward closing. The posterior capsule was very meticulously repaired to provide moderate maximum stability. The IT band gluteal fascia then closed with in 1 PDS suture running fashion for subcutaneous tissues then closed with 2 layers the deep layer #1 Vicryl suture subcutaneous tissues with 2-0 Dexon suture in a buried interrupted fashion. Skin was closed skin annita. Leg was then cleaned and dried a sterile dressing was Xeroform, 4 x 4's, sterile ABD pad and foam tape was applied. The patient then transferred to the recovery room intubated where he was extubated. Patient tolerated procedure well no complications. Clemente Resendez, my physician foundation assistant, was present for the entire procedure. His assistance was essential and required for appropriate patient positioning, prepping and draping, surgical exposure, performing the technical details of the operation, placement the implants, closure of the wound, and placement of the sterile bandage. I attest to the content of the Intraoperative Record and any orders documented therein. Any exceptions are noted below.
--- NOTE | 2022-12-28 19:58 | Anesthesiology Progress Note ---
Date of Service December 28, 2022 Anesthesia Post Procedure Vital Signs Vital Signs: Temp Pulse Pulse Pulse Resp BP BP 12/28/22 19:40 91 H 20 123/87 12/28/22 19:30 86 21 121/81 12/28/22 19:20 36.6 C 93 H 21 109/81 12/28/22 16:50 36.3 C L 91 H 16 138/94 12/28/22 15:58 101 H 12/28/22 15:03 37.5 C 97 H 20 125/77 12/28/22 12:00 37.0 C 89 20 110/72 12/28/22 08:41 12/28/22 08:16 37.0 C 111 H 20 123/85 12/28/22 07:03 105 H 12/28/22 06:00 108 H 12/28/22 04:00 12/28/22 02:34 37.1 C 118 H 18 136/88 12/28/22 00:00 37.4 C 12/27/22 22:00 108 H 12/27/22 23:53 12/27/22 21:51 12/27/22 21:49 38.1 C H 109 H 20 147/90 H 12/27/22 20:23 Pulse Ox Pulse Ox O2 Del Method O2 Del Method O2 Flow Rate O2 Flow Rate 12/28/22 19:40 94 Oxymask 5 12/28/22 19:30 94 Oxymask 5 12/28/22 19:20 98 Oxymask 8 12/28/22 16:50 95 Nasal Cannula 3 12/28/22 15:58 12/28/22 15:03 90 Nasal Cannula 3 12/28/22 12:00 90 Nasal Cannula 3 12/28/22 08:41 Nasal Cannula 3 12/28/22 08:16 92 Nasal Cannula 3 12/28/22 07:03 12/28/22 06:00 12/28/22 04:00 93 Nasal Cannula 3 12/28/22 02:34 93 Nasal Cannula 3 12/28/22 00:00 12/27/22 22:00 12/27/22 23:53 96 Nasal Cannula 3 12/27/22 21:51 Nasal Cannula 3 12/27/22 21:49 96 Nasal Cannula 3 12/27/22 20:23 94 Room Air Transfer of Care Handoff Completed per policy Notes Mental Status: alert / awake / arousable and participated in evaluation Patient Amnestic to Procedure: Yes Nausea / Vomiting: adequately controlled Pain: adequately controlled Airway Patency, RR, SpO2: stable & adequate BP & HR: stable & adequate Hydration State: stable & adequate Anesthetic Complications: no major complications apparent
[2022-12-28] MEDS: SODIUM CHLORIDE 0.9% 1000ML 1,000 ML IV SCH (22:28)
[2022-12-28] MEDS: DOCUSATE SODIUM/SENNA 50/8.6MG TAB PO SCH (22:28)
[2022-12-28] MEDS: ASPIRIN 81 MG ECTAB PO SCH (22:29)
[2022-12-29] MEDS: ceFAZolin 2000MG 2,000 MG/15 ML SYR IV SCH ×2 (02:14→09:13)
[2022-12-29] MEDS ORDERED: REMDESIVIR 200 MG in SODIUM CHLORIDE 0.9% 210 ML IV STA (07:09)
--- NOTE | 2022-12-29 07:47 | Progress Notes ---
DATE OF SERVICE: 12/29/2022. SUBJECTIVE: An 82-year-old inmate, postoperative day 1 from a left cemented bipolar hip arthroplasty for fracture. He is lying in bed. Denies any real significant pain this morning. Does have underl fernandez dementia. OBJECTIVE: VITAL SIGNS: Temperature 36.8. Vital signs are stable. GENERAL: Shows an elderly male. He is lying in bed, handcuffed to the bed. EXTREMITIES: Examination of the left hip reveals leg lengths to be equal. Dressing is clean, dry an d intact. He can dorsiflex and plantarflex his foot on command. His hip is located. He is neurolog ically intact. LABORATORY DATA: Hemoglobin is pending. Labs are pending. ASSESSMENT: An 82-year-old gentleman with multiple medical comorbidities, postop day 1 from left bip olar hip arthroplasty for fracture. He has got underlying dementia. His pain seems to be controlled . Hip is located. He is neurologically intact. PLAN: 1. DVT prophylaxis includes thigh-high TEDs, SCDs, and aspirin twice a day. Does have atrial fibril lation, but not on anticoagulation. We would recommend a baby aspirin twice a day for 6 weeks. 2. PT/OT, weightbear as tolerated. Total hip precautions, although it is unlikely he will follow pranay. 3. Pain management, seems to be doing okay with current pain regimen. 4. Disposition: He will be orthopedically okay for discharge any time medically stable. I need to see him back in 2-3 weeks out from surgery date. He does need to obey hip precautions. He can weigh t bear as tolerated. Any orthopedic questions can be directed to me at [phone]. Job ID: [id number]
[2022-12-29] MEDS: dexAMETHasone 6 MG in SYRINGE 0 ML IV SCH (07:52)
[2022-12-29] MEDS: dilTIAZem HCL 180 MG CAPCR PO SCH (07:55)
[2022-12-29] MEDS: ACETAMINOPHEN 500 MG TAB PO SCH ×3 (07:55→20:50)
[2022-12-29] MEDS: ASPIRIN 81 MG ECTAB PO SCH ×2 (07:55→20:50)
[2022-12-29] MEDS: DONEPEZIL HCL 5 MG TAB PO SCH (07:55)
--- NOTE | 2022-12-29 08:15 | XRay Report ---
LEFT HIP 2 VIEWS CLINICAL HISTORY: Postoperative examination. FINDINGS: AP and crosstable lateral views of the left hip are compared to study dated 12/27/2022. The skeletal structures are osteopenic. A left hip arthroplasty is in near anatomic alignment. No acute f racture is seen involving the left hip or the visualized left hemipelvis. Skin clips, subcutaneous ga s, and soft tissue swelling overlying the left hip are expected postoperative changes. There is degen erative sclerosis of the left sacroiliac joint and the pubic symphysis. Bowel projecting over the linda in is likely located within a large internal hernia. IMPRESSION: 1. Expected postoperative findings status post left hip arthroplasty. No acute fracture seen. 2. Bowel projecting over the groin is likely contained within a large inguinal hernia. Clinical corre lation will be required. Electronically signed by: Ranjith Jacobson M.D. 12/29/2022 8:13 AM
[2022-12-29 08:17] LABS: Basophils # (auto) 0.01 K/uL (0-0.2); Basophils % (auto) 0.1 %; Hematocrit (blood only) 41.2 % (42.0-52.0); Hemoglobin 13.7 g/dl (14.0-18.0); Immature Granulocytes # (auto) 0.12 K/uL (0.01-0.20); Immature Granulocytes % (auto) 0.8 %; Lymphocytes # (auto) 0.43 K/uL (1.2-3.4); Lymphocytes % (auto) 2.8 %; Mean Corpuscular Hemoglobin 32.6 pg (25.0-34.0); Mean Corpuscular Hgb Conc 33.3 g/dL (32.0-36.0); Mean Corpuscular Volume 98.1 fL (80.0-100.0); Mean Platelet Volume 13.5 fL (9.4-12.4); Monocytes # (auto) 1.01 K/uL (0.11-0.59); Monocytes % (auto) 6.5 %; Neutrophils # (auto) 14.03 K/uL (1.40-6.50); Neutrophils % (auto) 89.8 %; Platelet Count 103 K/uL (130-400); RDW Coefficient of Variation 14.6 % (11.5-14.5); RDW Standard Deviation 52.9 fL (36.4-46.3)
[2022-12-29 08:56] LABS: Calcium 8.5 mg/dl (8.5-10.1)
[2022-12-29 09:02] LABS: BUN Creatinine Ratio 30.6 (10-20); Creatinine Clr Calc Pharmacy 66.2 ml/min; Est GFR (African American) 71.3 ml/min; Est GFR (Non-African American) 61.5 ml/min
[2022-12-29] MEDS: AZITHROMYCIN 500 MG in DEXTROSE 5% 250 ML IV SCH (09:13)
[2022-12-29] MEDS ORDERED: ERGOCALCIFEROL 50,000 UNITS 1250 MCG CAP PO SCH (09:15)
[2022-12-29] MEDS: SODIUM CHLORIDE 0.9% 1000ML 1,000 ML IV SCH (09:51)
--- NOTE | 2022-12-29 10:17 | XRay Report ---
XR chest 2V PA/lateral HISTORY: Hypoxia/ Covid COMPARISON: Chest 12/27/2022. FINDINGS: No pneumothorax. The cardiac silhouette remains mildly enlarged. There are trace bilateral pleural effusions with mild congestive change. The right apical lobular density favors the normal pul monary vessels. Small linear scarlike density overlying the left heart border has improved. No new fo marly lung consolidations identified. IMPRESSION: 1. Cardiomegaly with mild pulmonary vascular congestion and trace bilateral pleural effusions. 2. Improvement in the lobular density within the right medial lung apex which may represent the lucina l pulmonary vessels. This can be confirmed with follow-up chest CT. ACT 112: Negative or not required by law. Electronically signed by: Kip Alejo M.D. 12/29/2022 10:16 AM
[2022-12-29] MEDS: CHOLECALCIFEROL 1,000 UNITS 25 MCG TAB PO SCH (11:53)
--- NOTE | 2022-12-29 13:38 | Hospitalist Progress Note ---
Date of Service December 29, 2022 Assessment & Plan (1) Closed left hip fracture: Plan: -Acetaminophen 1 g p.o./IV 3 times daily -Morphine 2 to 4 mg IV every 4 hourly as needed -Error in documentation yesterday: Consent from long-term was not obtained. Consent was based off of two physician decision making determined that this was the patient's best and most beneficial course of action to reduce mortality. -Status post arthroplasty on 12/28/2022. Tolerated procedure well. -Appreciate orthopedic recommendations. -PT and OT consults in. -Muro catheter in place -DVT prophylaxis-Lovenox 40 mg twice daily due to COVID. (2) Hypoxia: Plan: -Given COVID-positive status and chest x-ray showing some opacities, possibly some overlying pneumonia on top of COVID-19 -Started azithromycin and ceftriaxone for possible pneumonia. -Due to worsening oxygen saturations today, started dexamethasone and remdesivir for inpatient COVID-19 treatment. -Repeat chest x-ray today did show some vascular congestion. Patient was on IV fluids, these were discontinued. -We will hold off diuretics for now. If still requiring oxygen supplementation and appears hypervolemic, will begin them tomorrow. (3) Atrial fibrillation: Plan: - Rate controlled with current diltiazem dosage. Continue. (4) Unspecified dementia, unspecified severity, with other behavioral disturbance: Plan: -Continue donepezil 5 mg p.o. daily (5) Hypertension: Plan: -Continue diltiazem CD 180 mg p.o. daily -Blood pressure has been well controlled since admission. (6) Microscopic hematuria: Plan: -Follow-up outpatient, recommend repeating in 4 weeks however suspect due to trauma from Muro catheter on admission (7) Schizophrenia: Plan: -Reported history of this however no delusions or hallucinations noted by RN in the [facility] -Confirm not treated with antipsychotics Plan VTE Prophylaxis -Lovenox (COVID) Diet -heart healthy with pured foods. Disposition -med/tele CODE STATUS: Full code Admission and Anticipated Discharge Date Admission Date: December 27, 2022 Supervising Physician Co-Signing Physician Notes I personally examined the patient and verified all cornell points of history and exam, discussed case, and agree with decision making with Dr Burton Feeling okay. Denies any shortness of breath, denies any significant hip pain. Vitals noted, in general he is awake and alert pleasant resting comfortably in bed on about 3 L nasal cannula. No distress. HEENT normocephalic atraumatic mucous membranes moist. Lungs diminished throughout but no rales rhonchi or wheezes moderate effort no accessory muscle use no conversational dyspnea. Hip fracturestatus post repairprobably osteoporotic. Outpatient bone health work-up and management. Pneumonia with acute hypoxic respiratory failure and sepsis present on admissionCOVID versus community-acquired versus elements of both. Managing as both. Fortunately fairly stable overall, but did have increasing oxygen requirement todayhence escalation of care. Hopefully will improve on steroids. Continue antibiotics and steroids as well as supportive care. Risk due to hypoxic respiratory failure Subjective Patient seen at bedside this morning. No acute events reported overnight. Patient seems to have tolerated procedure well yesterday. He was on increased oxygen requirements requiring oxygen mask which is more than he required yesterday. Overall seems to have pain under control. Reported by nursing today: Had difficulty with swallowing his vitamin D supplement and felt that he was going to choke. Nursing suggested speech evaluation consult. This order was placed. Otherwise no new complaints today. Review of Systems Review of Systems: All systems reviewed & are unremarkable except as noted in HPI & below Physical Exam Constitutional: WD/WN, vitals as above Eyes: + anicteric sclerae Neck: normal visual inspection Respiratory: normal respiratory effort Auscultation: + crackles and + bro nchial breath sounds Cardiovascular: Rate/Rhythm: + irregularly irregular Heart Sounds: no murmur Extremities: no edema Gastrointestinal (Abdomen): normal bowel sounds, soft, nontender, no hepatosplenomegaly Skin: no rashes, warm and dry Psychiatric: Orientation: alert Results & Data Results & Data ([facility]) Vital Signs (Past 12 Hours) Vital Signs Temp Pulse Pulse Pulse Resp BP Pulse Ox 12/29/22 08:00 12/29/22 08:38 12/29/22 07:17 93 H 12/29/22 06:24 36.8 C 86 18 145/82 H 97 12/29/22 04:00 36.8 C 87 18 124/76 96 12/29/22 02:15 37.2 C 87 20 122/78 96 Pulse Ox O2 Del Method O2 Del Method O2 Flow Rate O2 Flow Rate 12/29/22 08:00 97 Nasal Cannula 4 12/29/22 08:38 Nasal Cannula 4 12/29/22 07:17 12/29/22 06:24 Oxymask 4 12/29/22 04:00 Oxymask 4 12/29/22 02:15 Oxymask 4
[2022-12-29] MEDS: ENOXAPARIN INJ 40 MG/0.4 ML SYR SQ SCH (14:43)
--- NOTE | 2022-12-29 18:36 | Billing Data ---
Date of Service December 29, 2022 Coding Level of Care Code 17116 SUB INP/OBS CARE MIN
[2022-12-29] MEDS: DOCUSATE SODIUM/SENNA 50/8.6MG TAB PO SCH (20:50)
[2022-12-30] MEDS: ENOXAPARIN INJ 40 MG/0.4 ML SYR SQ SCH (01:53)
--- NOTE | 2022-12-30 07:00 | Hospitalist Progress Note ---
Date of Service December 30, 2022 Assessment & Plan (1) Closed left hip fracture: Plan: -Acetaminophen 1 g p.o./IV 3 times daily -Morphine 2 to 4 mg IV every 4 hourly as needed -Status post arthroplasty on 12/28/2022. Tolerated procedure well. -Appreciate orthopedic recommendations. -PT and OT consults in - patient will continue PT/OT here and can consider return to [facility] with home health if continues to improve -Muro catheter in place -DVT prophylaxis-Aspirin BID per Ortho, in addition to Lovenox 40 mg daily due to COVID-19 - will need osteoporosis treatment as outpatient given ground-level fall/fracture - consider bisphosphonate. Defer to PCP at [facility] (2) Hypoxia: Plan: -Given COVID-positive status and chest x-ray showing some opacities, possibly some overlying pneumonia on top of COVID-19 -Started azithromycin and ceftriaxone for possible pneumonia - today is day 2 of both -On 12/29 started Decadron 6mg IV daily and Remdesivir x5 days -Repeat chest x-ray on 12/29 did show some vascular congestion. Patient was on IV fluids, these were discontinued on 12/29 - will add Lasix 40mg IV today, consider further diuretics tomorrow (3) Atrial fibrillation: Plan: - Rate controlled with current diltiazem dosage. Continue. (4) Unspecified dementia, unspecified severity, with other behavioral distur bance: Plan: -Continue donepezil 5 mg p.o. daily (5) Hypertension: Plan: -Continue diltiazem CD 180 mg p.o. daily -Blood pressure has been well controlled since admission. (6) Microscopic hematuria: Plan: -Follow-up outpatient, recommend repeating in 4 weeks however suspect due to trauma from Muro catheter on admission (7) Schizophrenia: Plan: -Reported history of this however no delusions or hallucinations noted [facility] -Confirm not treated with antipsychotics Plan VTE Prophylaxis -Lovenox (COVID) and ASA BID Diet -heart healthy with pured foods. CODE STATUS: Full code Disposition -med/tele. NOTE: patient has Plavix listed in home med list but unclear reason for this. Will defer to patient's physician in [facility] to determine timing of re-starting Plavix although this may need to be done sooner rather than later depending on indication (will be discharged on ASA BID x6 weeks for ortho DVT ppx as well) Admission and Anticipated Discharge Date Admission Date: December 27, 2022 Supervising Physician Co-Signing Physician Notes I personally examined the patient and verified all cornell points of history and exam, discussed case, and agree with decision making with Dr Hampton feels OK breathing OK no hip pain. Hip fracturestatus post repairprobably osteoporotic. Outpatient bone health work-up and management. stable in this respect Pneumonia with acute hypoxic respiratory failure and sepsis present on admissionCOVID versus community-acquired versus elements of both. Managing as both. Also acute HFpEF todayimproved with Lasix. Hypoxia now improved. High risk due to hypoxia requiring intravenous diuretics. Fortunately improving Subjective Patient reports that he feels his breathing has improved slightly albeit with supplemental O2. Hip pain controlled with Tylenol. Review of Systems Review of Systems: All systems reviewed & are unremarkable except as noted in HPI & below Physical Exam Physical Exam: General: A&Ox3. NAD. Cooperative. HEENT: Atraumatic, normocephalic. Pulm: Decreased bibasilar aeration with occasional expiratory rhonchi. Symmetrical chest rise. No increase work of breathing. No respiratory distress. Cardiac: RRR, -mrg. Radial pulses intact and symmetrical. No JVD. No LE edema. Abdominal: soft, non-tender, non-distended, BS x 4 Skin: warm, dry, no rash Results & Data Results & Data ([facility]) Vital Signs (Past 12 Hours) Vital Signs Temp Pulse Pulse Resp BP Pulse Ox Pulse Ox 12/30/22 04:00 36.7 C 84 18 124/83 93 12/30/22 04:00 94 12/30/22 00:00 94 12/30/22 00:00 94 H 12/29/22 23:00 36.9 C 96 H 18 144/82 H 94 12/29/22 20:00 12/29/22 20:00 96 O2 Del Method O2 Del Method O2 Flow Rate O2 Flow Rate 12/30/22 04:00 Nasal Cannula 4 12/30/22 04:00 Nasal Cannula 3.5 12/30/22 00:00 Nasal Cannula 3.5 12/30/22 00:00 12/29/22 23:00 Nasal Cannula 4 12/29/22 20:00 Nasal Cannula 12/29/22 20:00 Nasal Cannula 3.5 Resident Activity Tracking Resident Involvement: Resident Care Provided Care Provided: Adult Hospital Medicine
[2022-12-30 08:43] LABS: Basophils # (auto) 0.01 K/uL (0-0.2); Basophils % (auto) 0.1 %; Hematocrit (blood only) 38.2 % (42.0-52.0); Hemoglobin 12.8 g/dl (14.0-18.0); Immature Granulocytes # (auto) 0.13 K/uL (0.01-0.20); Immature Granulocytes % (auto) 0.8 %; Lymphocytes # (auto) 0.51 K/uL (1.2-3.4); Lymphocytes % (auto) 3.1 %; Mean Corpuscular Hemoglobin 32.1 pg (25.0-34.0); Mean Corpuscular Hgb Conc 33.5 g/dL (32.0-36.0); Mean Corpuscular Volume 95.7 fL (80.0-100.0); Mean Platelet Volume 13.6 fL (9.4-12.4); Monocytes # (auto) 1.27 K/uL (0.11-0.59); Monocytes % (auto) 7.6 %; Neutrophils # (auto) 14.69 K/uL (1.40-6.50); Neutrophils % (auto) 88.4 %; Platelet Count 106 K/uL (130-400); RDW Coefficient of Variation 14.6 % (11.5-14.5); RDW Standard Deviation 52.1 fL (36.4-46.3); Red Blood Count 3.99 M/uL (4.70-6.10); White Blood Count 16.61 K/ul (4.8-10.8)
[2022-12-30 08:47] LABS: BUN Creatinine Ratio 37.7 (10-20); C Reactive Protein 16.94 mg/dl (0-0.5); Calcium 8.8 mg/dl (8.5-10.1); Creatinine Clr Calc Pharmacy 69.2 ml/min; Est GFR (African American) 75.4 ml/min; Magnesium 2.2 mg/dl (1.7-2.4); Potassium 4.2 mmol/L (3.5-5.1)
[2022-12-30] MEDS: dilTIAZem HCL 180 MG CAPCR PO SCH (09:57)
[2022-12-30] MEDS: ASPIRIN 81 MG ECTAB PO SCH ×2 (09:57→21:30)
[2022-12-30] MEDS: CHOLECALCIFEROL 1,000 UNITS 25 MCG TAB PO SCH (09:57)
[2022-12-30] MEDS: AZITHROMYCIN 500 MG in DEXTROSE 5% 250 ML IV SCH (09:58)
[2022-12-30] MEDS: cefTRIAXone SODIUM 2,000 MG in DEXTROSE 5% 50 ML IV SCH (09:58)
[2022-12-30] MEDS: DONEPEZIL HCL 5 MG TAB PO SCH (09:58)
[2022-12-30] MEDS: ACETAMINOPHEN 500 MG TAB PO SCH ×3 (09:58→21:30)
[2022-12-30] MEDS ORDERED: FUROSEMIDE 40 MG/4 ML VIAL IV ONE (11:15)
[2022-12-30] MEDS: dexAMETHasone 6 MG in SYRINGE 0 ML IV SCH (11:27)
[2022-12-30] MEDS: REMDESIVIR 100 MG in SODIUM CHLORIDE 0.9% 230 ML IV SCH (14:40)
--- NOTE | 2022-12-30 17:39 | Billing Data ---
Date of Service December 30, 2022 Coding Level of Care Code 03541 SUB INP/OBS CARE
[2022-12-30] MEDS: DOCUSATE SODIUM/SENNA 50/8.6MG TAB PO SCH (22:20)
[2022-12-31] MEDS ORDERED: ONDANSETRON INJ 2 MG/ML 2 ML VIAL IV PRN (00:05)
[2022-12-31] MEDS: POLYETHYLENE (MIRALAX) 17 GM PACK PO SCH ×4 (01:11→15:09)
[2022-12-31] MEDS: cefTRIAXone SODIUM 2,000 MG in DEXTROSE 5% 50 ML IV SCH (07:59)
[2022-12-31] MEDS: ACETAMINOPHEN 500 MG TAB PO SCH ×4 (07:59→20:36)
[2022-12-31] MEDS: dexAMETHasone 6 MG in SYRINGE 0 ML IV SCH (08:00)
[2022-12-31] MEDS: ASPIRIN 81 MG ECTAB PO SCH ×2 (08:00→20:37)
[2022-12-31] MEDS: dilTIAZem HCL 180 MG CAPCR PO SCH ×2 (08:01→09:06)
[2022-12-31] MEDS: CHOLECALCIFEROL 1,000 UNITS 25 MCG TAB PO SCH ×2 (08:01→09:06)
[2022-12-31] MEDS: DONEPEZIL HCL 5 MG TAB PO SCH ×2 (08:01→09:06)
[2022-12-31] MEDS: ENOXAPARIN INJ 40 MG/0.4 ML SYR SQ SCH (08:02)
--- NOTE | 2022-12-31 08:06 | Hospitalist Progress Note ---
Date of Service December 31, 2022 Assessment & Plan (1) Closed left hip fracture: Plan: -Acetaminophen 1 g p.o./IV 3 times daily -Morphine 2 to 4 mg IV every 4 hourly as needed -Status post arthroplasty on 12/28/2022. Tolerated procedure well. -Appreciate orthopedic recommendations. -PT and OT consults in - patient will continue PT/OT here and can consider return to [facility] with home health if continues to improve -Muro catheter in place -DVT prophylaxis-Aspirin BID per Ortho, in addition to Lovenox 40 mg daily due to COVID-19 - will need osteoporosis treatment as outpatient given ground-level fall/fracture - consider bisphosphonate. Defer to PCP at residential (2) Hypoxia: Plan: -Given COVID-positive status and chest x-ray showing some opacities, possibly some overlying pneumonia on top of COVID-19 -Started azithromycin and ceftriaxone for possible pneumonia - today is day 2 of both -On 12/29 started Decadron 6mg IV daily and Remdesivir x5 days -Repeat chest x-ray on 12/29 did show some vascular congestion. Patient was on IV fluids, these were discontinued on 12/29 - received Lasix 40mg IV x1 on 12/30 - Good response and saturating appropriately on room air as of 12/31 (3) Atrial fibrillation: Plan: - Rate controlled with current diltiazem dosage. Continue. (4) Unspecified dementia, unspecified severity, with other behavioral disturbance: Plan: -Continue donepezil 5 mg p.o. daily (5) Hypertension: Plan: -Continue diltiazem CD 180 mg p.o. daily -Blood pressure has been well controlled since admission. (6) Microscopic hematuria: Plan: -Follow-up outpatient, recommend repeating in 4 weeks however suspect due to trauma from Muro catheter on admission (7) Schizophrenia: Plan: -Reported history of this however no delusions or hallucinations noted by RN in the [facility] -Confirm not treated with antipsychotics Plan VTE Prophylaxis -Lovenox (COVID) and ASA BID Diet -heart healthy with pured foods. CODE STATUS: Full code Disposition -med/tele. NOTE: patient has Plavix listed in home med list but unclear reason for this. Will defer to patient's physician in residential to determine timing of re-starting Plavix although this may need to be done sooner rather than later depending on indication (will be discharged on ASA BID x6 weeks for ortho DVT ppx as well) Placement for [facility] patricia leon MD, which will be coordinated by [facility] -- earliest 01/02. (See CM note) Admission and Anticipated Discharge Date Admission Date: December 27, 2022 Supervising Physician Co-Signing Physician Notes I personally examined the patient and verified all cornell points of history and exam, discussed case, and agree with decision making with Dr Musa resting comfortably. vitals noted on room air. breathing unlabored. exam otherwise as above Hip fracturestatus post repairprobably osteoporotic. Outpatient bone health work-up and management. stable in this respect, awaiting rehab Pneumonia with acute hypoxic respiratory failure and sepsis present on admissionCOVID versus community-acquired versus elements of both. Managing as both. Also acute HFpEF 2/3improved with Lasix. Hypoxia now improved. on room air. Subjective Seen at bedside without concerns. Saturating 93-94% on room air. Pain well controlled. Review of Systems Review of Systems: All systems reviewed & are unremarkable except as noted in Subjective Physical Exam Physical Exam: General: A&Ox3. NAD. Cooperative. HEENT: Atraumatic, normocephalic. Pulm: CTAB. Symmetrical chest rise. No increase work of breathing. No respiratory distress. Cardiac: RRR, -mrg. Radial pulses intact and symmetrical. No JVD. No LE edema. Abdominal: soft, non-tender, non-distended, BS x 4 Skin: warm, dry, no rash Results & Data Results & Data ([facility]) Vital Signs (Past 12 Hours) Vital Signs Temp Pulse Pulse Resp BP Pulse Ox O2 Del Method 12/31/22 07:18 93 H 12/31/22 04:00 36.8 C 101 H 20 135/87 92 Room Air 12/30/22 23:17 90 12/30/22 22:58 Room Air 12/30/22 22:56 36.9 C 92 H 20 127/78 92 Room Air 12/30/22 21:26 36.8 C 94 H 20 128/83 92 Room Air Resident Activity Tracking Resident Involvement: Resident Care Provided Care Provided: Adult [facility] Medicine
[2022-12-31 08:37] LABS: BUN Creatinine Ratio 42.1 (10-20); C Reactive Protein 13.04 mg/dl (0-0.5); Calcium 8.7 mg/dl (8.5-10.1); Creatinine Clr Calc Pharmacy 69.2 ml/min; Est GFR (African American) 74.5 ml/min; Est GFR (Non-African American) 64.3 ml/min; Hematocrit (blood only) 40.1 % (42.0-52.0); Hemoglobin 13.3 g/dl (14.0-18.0); Magnesium 2.3 mg/dl (1.7-2.4); Mean Corpuscular Hemoglobin 31.9 pg (25.0-34.0); Mean Corpuscular Hgb Conc 33.2 g/dL (32.0-36.0); Mean Corpuscular Volume 96.2 fL (80.0-100.0); Platelet Count 126 K/uL (130-400); Potassium 4.3 mmol/L (3.5-5.1); RDW Coefficient of Variation 14.6 % (11.5-14.5); RDW Standard Deviation 51.8 fL (36.4-46.3); Red Blood Count 4.17 M/uL (4.70-6.10); White Blood Count 12.59 K/ul (4.8-10.8)
[2022-12-31] MEDS: AZITHROMYCIN 500 MG in DEXTROSE 5% 250 ML IV SCH (09:07)
[2022-12-31 09:08] LABS: Basophils # (auto) 0.01 K/uL (0-0.2); Basophils % (auto) 0.1 %; Immature Granulocytes # (auto) 0.09 K/uL (0.01-0.20); Immature Granulocytes % (auto) 0.7 %; Lymphocytes # (auto) 0.48 K/uL (1.2-3.4); Lymphocytes % (auto) 3.8 %; Monocytes # (auto) 1.02 K/uL (0.11-0.59); Monocytes % (auto) 8.1 %; Neutrophils # (auto) 10.99 K/uL (1.40-6.50); Neutrophils % (auto) 87.3 %
--- NOTE | 2022-12-31 09:42 | Progress Notes ---
DATE OF NOTE: 12/31/2022 SUBJECTIVE: An 82-year-old gentleman postoperative day 3 from a left cemented bipolar hip arthroplas ty for fracture. He seems to be doing okay. He describes some moderate, but manageable amounts of p ain. No other complaints. OBJECTIVE: VITAL SIGNS: Temperature is 36.6. Vital signs are stable. GENERAL: Shows a pleasant, demented elderly male. He is lying in bed. He follows commands. EXTREMITIES: Examination of the left hip reveals just a little bit of bloody drainage on his dressin g. His high is soft and supple. His leg lengths appear equal. He can dorsiflex and plantarflex his foot appropriately. He is neurologically intact. LABORATORY DATA: Hemoglobin is 13.3. Hematocrit 40.1. Electrolytes are stable. ASSESSMENT: An 82-year-old gentleman inmate with some underlying dementia and multiple other medical issues postop day 3 from a left hip arthroplasty for fracture. Orthopedically, he is doing fine. H is pain seems to be controlled. Hip is located. He is neurologically intact. A little bloody drain age on his dressing, but nothing too concerning. PLAN: 1. DVT prophylaxis includes thigh-high TEDs, SCDs, and aspirin twice a day. 2. PT/OT. He can fully weightbear on this left leg. Does need to obey hip precautions. 3. Pain control, seems to be okay with pain medicines, doing okay with current pain regimen. 4. Medical management as per the medicine service. 5. Disposition: He is orthopedically okay for discharge any time medically stable. I need to see h im back in 2-3 weeks out from surgery date. Any questions can be directed to me at [phone]. Job ID: [id number]
[2022-12-31] MEDS: REMDESIVIR 100 MG in SODIUM CHLORIDE 0.9% 230 ML IV SCH (11:54)
--- NOTE | 2022-12-31 16:23 | Billing Data ---
Date of Service December 31, 2022 Coding Level of Care Code 54918 SUB INP/OBS CARE
[2022-12-31] MEDS: DOCUSATE SODIUM/SENNA 50/8.6MG TAB PO SCH (22:01)
[2023-01-01] MEDS: POLYETHYLENE (MIRALAX) 17 GM PACK PO SCH ×5 (01:19→20:13)
--- NOTE | 2023-01-01 06:58 | Hospitalist Progress Note ---
Date of Service January 01, 2023 Assessment & Plan (1) Closed left hip fracture: Plan: - Acetaminophen 1 g p.o./IV 3 times daily - Morphine 2 to 4 mg IV every 4 hourly as needed - Status post arthroplasty on 12/28/2022. Tolerated procedure well. - Appreciate orthopedic recommendations - Remove gates this morning - DVT prophylaxis-Aspirin BID per Ortho, in addition to Lovenox 40 mg daily due to COVID-19 - will need osteoporosis treatment as outpatient given ground-level fall/fracture - consider bisphosphonate. Defer to PCP at [facility] - PT and OT consults in - both recommend SNF placement and [facility] like for him to go to SNF --> [facility] (2) Hypoxia: Plan: Hypoxia / to COVID-19/multifocal pneumonia. Hypoxia resolved as of 12/30, after 24 hours COVID/pneumonia treatments and after 1 dose Lasix 40mg IV. Doing well. - Day 4/5 Azithromycin, day 3/7 CTX - Day 4/5 Remdesivir - day 4 Decadron - decrease from 6mg to 2mg given that hypoxia is resolved (3) Atrial fibrillation: Plan: - Rate controlled with current diltiazem dosage. Continue. (4) Unspecified dementia, unspecified severity, with other behavioral disturbance: Plan: -Continue donepezil 5 mg p.o. daily (5) Hypertension: Plan: -Continue diltiazem CD 180 mg p.o. daily -Blood pressure has been well controlled since admission. (6) Microscopic hematuria: Plan: -Follow-up outpatient, recommend repeating in 4 weeks however suspect due to trauma from Gates catheter on admission (7) Schizophrenia: Plan: -Reported history of this however no delusions or hallucinations noted by RN in the [facility] -Confirm not treated with antipsychotics Plan VTE Prophylaxis -Lovenox (COVID) and ASA BID Diet -heart healthy with pured foods. CODE STATUS: Full code Disposition -med/tele. NOTE: patient has Plavix listed in home med list but unclear reason for this. Will defer to patient's physician in [facility] to determine timing of re-starting Plavix although this may need to be done sooner rather than later depending on indication (will be discharged on ASA BID x6 weeks for ortho DVT ppx as well) [facility], which will be coordinated by [facility] -- earliest 01/02. (See CM note) Admission and Anticipated Discharge Date Admission Date: December 27, 2022 Supervising Physician Co-Signing Physician Notes I personally examined the patient and verified all cornell points of history and exam, discussed case, and agree with decision making with Dr Hampton no complaints. hip pain reasonable. no sob. vitals noted on room air again. heent nc at mmm lungs overall CTA b/l somewhat difficult exam due to positioning but no r/r/w noted good effort no accessory muscle use and no conversational dyspnea. Hip fracturestatus post repairprobably osteoporotic. Outpatient bone health work-up and management. stable in this respect, awaiting rehab - hopefully tomorrow Pneumonia with acute hypoxic respiratory failure and sepsis present on admissionCOVID versus community-acquired versus elements of both. Managing as both. Also acute HFpEF 2/3improved with Lasix. Hypoxia now improved. on room air and lungs clear. Subjective No concerns this morning. No breathing difficulties on room air. Has been able to get up with PT/OT. Gates draining appropriately. Review of Systems Review of Systems: All systems reviewed & are unremarkable except as noted in HPI & below Physical Exam Physical Exam: General: A&Ox3. NAD. Cooperative. HEENT: Atraumatic, normocephalic. Pulm: Occasional bibasilar expiratory rhonchi. Symmetrical chest rise. No increase work of breathing. No respiratory distress. Cardiac: RRR, -mrg. Radial pulses intact and symmetrical. No JVD. No LE edema. Abdominal: soft, non-tender, non-distended, BS x 4 Skin: warm, dry, no rash Results & Data Results & Data ([facility]) Vital Signs (Past 12 Hours) Vital Signs Temp Pulse Pulse Resp BP Pulse Ox O2 Del Method 01/01/23 05:49 36.6 C 86 20 146/97 H 93 Room Air 01/01/23 04:11 36.8 C 94 H 20 136/80 92 Room Air 01/01/23 00:51 89 12/31/22 22:24 Room Air 12/31/22 22:14 36.8 C 92 H 20 127/83 92 Room Air 12/31/22 20:41 36.9 C 91 H 20 144/95 H 93 Room Air Resident Activity Tracking Resident Involvement: Resident Care Provided Care Provided: Adult Hospital Medicine
[2023-01-01 08:09] LABS: Hematocrit (blood only) 38.1 % (42.0-52.0); Hemoglobin 12.7 g/dl (14.0-18.0); Mean Corpuscular Hemoglobin 31.9 pg (25.0-34.0); Mean Corpuscular Hgb Conc 33.3 g/dL (32.0-36.0); Mean Corpuscular Volume 95.7 fL (80.0-100.0); Mean Platelet Volume 13.1 fL (9.4-12.4); Platelet Count 141 K/uL (130-400); RDW Coefficient of Variation 14.5 % (11.5-14.5); RDW Standard Deviation 50.7 fL (36.4-46.3); Red Blood Count 3.98 M/uL (4.70-6.10); White Blood Count 9.99 K/ul (4.8-10.8)
[2023-01-01 08:10] LABS: Basophils # (auto) 0.01 K/uL (0-0.2); Basophils % (auto) 0.1 %; Immature Granulocytes # (auto) 0.11 K/uL (0.01-0.20); Immature Granulocytes % (auto) 1.1 %; Lymphocytes # (auto) 0.54 K/uL (1.2-3.4); Lymphocytes % (auto) 5.4 %; Monocytes # (auto) 0.81 K/uL (0.11-0.59); Monocytes % (auto) 8.1 %; Neutrophils # (auto) 8.52 K/uL (1.40-6.50); Neutrophils % (auto) 85.3 %
[2023-01-01 08:14] LABS: BUN Creatinine Ratio 42.3 (10-20); Calcium 8.5 mg/dl (8.5-10.1); Creatinine Clr Calc Pharmacy 76.3 ml/min; Est GFR (African American) 83.9 ml/min; Est GFR (Non-African American) 72.4 ml/min; Magnesium 2.4 mg/dl (1.7-2.4); Potassium 4.2 mmol/L (3.5-5.1)
[2023-01-01] MEDS: ACETAMINOPHEN 500 MG TAB PO SCH ×3 (08:51→19:32)
[2023-01-01] MEDS: ASPIRIN 81 MG ECTAB PO SCH ×2 (08:52→19:32)
[2023-01-01] MEDS: CHOLECALCIFEROL 1,000 UNITS 25 MCG TAB PO SCH (08:52)
[2023-01-01] MEDS: dilTIAZem HCL 180 MG CAPCR PO SCH (08:53)
[2023-01-01] MEDS: ENOXAPARIN INJ 40 MG/0.4 ML SYR SQ SCH (08:54)
[2023-01-01] MEDS: DONEPEZIL HCL 5 MG TAB PO SCH (08:54)
--- NOTE | 2023-01-01 09:13 | Progress Notes ---
DATE OF SERVICE: 01/01/2023. SUBJECTIVE: An 82-year-old gentleman, demented from the [facility], now 4 days out from a left cemented bipolar hip arthroplasty for fracture. He denies any significant pain this morning. No other compla ints. He does follow commands. OBJECTIVE: VITAL SIGNS: Temperature 36.6. Vital signs are stable. A little hypertensive. GENERAL: Shows a pleasant, elderly male. He is lying in bed, looks pretty comfortable. EXTREMITIES: Examination of the left hip reveals the dressing to be clean, dry and intact. No detec table drainage. His thigh is soft and supple. Leg lengths are equal. He is neurologically intact. He can dorsiflex and plantarflex his foot appropriately. LABORATORY DATA: Hemoglobin 12.7. Hematocrit 38.1. Electrolytes are stable. ASSESSMENT: An 82-year-old gentleman with significant underlying dementia from the [facility] system, 4 days out from a left cemented bipolar hip arthroplasty for fracture. Orthopedically, he seems to be doing fine. He is neurologically intact. Hip is located. Does not seem to be having much pain. PLAN: 1. DVT prophylaxis including thigh-high TEDs, SCDs, and aspirin twice a day. We would recommend a b elliott aspirin twice a day. Would not recommend Lovenox like he is on. 2. PT/OT. He can fully weightbear on the left leg. Needs to obey hip precautions. 3. Pain control, seems to be okay with current pain regimen. 4. Medical management as per the medicine service. 5. Disposition: He is orthopedically okay for discharge any time if medically okay. I need to see him back in 2-3 weeks out from surgery date. Any orthopedic questions can be directed to me at [phone]. Job ID: [id number]
[2023-01-01] MEDS: dexAMETHasone 6 MG in SYRINGE 0 ML IV SCH (09:32)
[2023-01-01] MEDS: AZITHROMYCIN 500 MG in DEXTROSE 5% 250 ML IV SCH (09:49)
[2023-01-01] MEDS: cefTRIAXone SODIUM 2,000 MG in DEXTROSE 5% 50 ML IV SCH (12:57)
--- NOTE | 2023-01-01 14:21 | Billing Data ---
Date of Service January 01, 2023 Coding Level of Care Code 59861 SUB INP/OBS CARE
[2023-01-01] MEDS: REMDESIVIR 100 MG in SODIUM CHLORIDE 0.9% 230 ML IV SCH (14:39)
[2023-01-01] MEDS: DOCUSATE SODIUM/SENNA 50/8.6MG TAB PO SCH (19:32)
[2023-01-02] MEDS: POLYETHYLENE (MIRALAX) 17 GM PACK PO SCH ×4 (05:56→23:51)
[2023-01-02 07:12] LABS: Hematocrit (blood only) 40.2 % (42.0-52.0); Hemoglobin 13.7 g/dl (14.0-18.0); Mean Corpuscular Hemoglobin 31.8 pg (25.0-34.0); Mean Corpuscular Hgb Conc 34.1 g/dL (32.0-36.0); Mean Corpuscular Volume 93.3 fL (80.0-100.0); Mean Platelet Volume 13.4 fL (9.4-12.4); Platelet Count 170 K/uL (130-400); RDW Coefficient of Variation 14.2 % (11.5-14.5); RDW Standard Deviation 49.1 fL (36.4-46.3); Red Blood Count 4.31 M/uL (4.70-6.10); White Blood Count 10.33 K/ul (4.8-10.8)
[2023-01-02 07:23] LABS: Creatinine Clr Calc Pharmacy 84.4 ml/min; Est GFR (African American) 93.6 ml/min; Est GFR (Non-African American) 80.8 ml/min
[2023-01-02] MEDS: ASPIRIN 81 MG ECTAB PO SCH ×2 (09:30→21:45)
[2023-01-02] MEDS: CHOLECALCIFEROL 1,000 UNITS 25 MCG TAB PO SCH (09:30)
[2023-01-02] MEDS: dilTIAZem HCL 180 MG CAPCR PO SCH (09:30)
[2023-01-02] MEDS: DONEPEZIL HCL 5 MG TAB PO SCH (09:31)
[2023-01-02] MEDS: ENOXAPARIN INJ 40 MG/0.4 ML SYR SQ SCH (09:35)
[2023-01-02] MEDS: cefTRIAXone SODIUM 2,000 MG in DEXTROSE 5% 50 ML IV SCH (09:36)
[2023-01-02] MEDS: dexAMETHasone 2 MG in SYRINGE 0 ML IV SCH (09:36)
[2023-01-02] MEDS: ACETAMINOPHEN 500 MG TAB PO SCH ×3 (10:50→21:46)
[2023-01-02] MEDS: AZITHROMYCIN 500 MG in DEXTROSE 5% 250 ML IV SCH (10:51)
[2023-01-02] MEDS: REMDESIVIR 100 MG in SODIUM CHLORIDE 0.9% 230 ML IV SCH (13:42)
--- NOTE | 2023-01-02 15:28 | Hospitalist Progress Note ---
Date of Service January 02, 2023 Assessment & Plan (1) Closed left hip fracture: Plan: - Acetaminophen 1 g p.o./IV 3 times daily - Morphine 2 to 4 mg IV every 4 hourly as needed - Status post arthroplasty on 12/28/2022. Tolerated procedure well. - Appreciate orthopedic recommendations - Remove gates on 01/01/23 - DVT prophylaxis-Aspirin BID per Ortho, in addition to Lovenox 40 mg daily due to COVID-19 - will need osteoporosis treatment as outpatient given ground-level fall/fracture - consider bisphosphonate. Defer to PCP [facility] - PT and OT consults in - both recommend SNF placement and [facility] like for him to go to SNF --> [facility] (2) Hypoxia: Plan: Hypoxia 2/ to COVID-19/multifocal pneumonia. Hypoxia resolved as of 12/30, after 24 hours COVID/pneumonia treatments and after 1 dose Lasix 40mg IV. Doing well. -Due to overall improvement in breathing and no consolidation seen on chest x- ray, discontinue azithromycin and Rocephin. -Remdesivir completed today - day 5 Decadron - Currently on 2 mg, continue (3) Atrial fibrillation: Plan: - Rate controlled with current diltiazem dosage. Continue. (4) Unspecified dementia, unspecified severity, with other behavioral disturbance: Plan: -Continue donepezil 5 mg p.o. daily (5) Hypertension: Plan: -Continue diltiazem CD 180 mg p.o. daily -Blood pressure has been well controlled since admission. (6) Microscopic hematuria: Plan: -Follow-up outpatient, recommend repeating in 4 weeks however suspect due to trauma from Gates catheter on admission (7) Schizophrenia: Plan: -Reported history of this however no delusions or [facility] [place] [facility] -Confirm not treated with antipsychotics Plan VTE Prophylaxis -Lovenox (COVID) and ASA BID Diet -heart healthy with pured foods. CODE STATUS: Full code Disposition -med/tele. NOTE: patient has Plavix listed in home med list but unclear reason for this. Will defer to patient's physician in [facility] to deter mine timing of re-starting Plavix although this may need to be done sooner rather than later depending on indication (will be discharged on ASA BID x6 weeks for ortho DVT ppx as well) [facility], which will be coordinated by tarah Kim/[facility] on 01/03/23 Admission and Anticipated Discharge Date Admission Date: December 27, 2022 Supervising Physician Co-Signing Physician Notes Resident Physician Supervision Note: I independently interviewed and examined the patient and verified the cornell history and physical, reviewed labs and image studies and agree with resident findings and care plan. Subjective Patient seen at bedside this morning. No acute events reported overnight. Overall reported doing okay and improved shortness of breath. Eating and drink ing without difficulty. Awaiting placement at this time. Review of Systems Review of Systems: All systems reviewed & are unremarkable except as noted in HPI & below Physical Exam Constitutional: WD/WN, vitals as above Eyes: + anicteric sclerae Neck: normal visual inspection Respiratory: normal respiratory effort Auscultation: + crackles and + bronchial breath sounds Cardiovascular: Rate/Rhythm: + irregularly irregular Heart Sounds: no murmur Extremities: no edema Gastrointestinal (Abdomen): normal bowel sounds, soft, nontender, no hepatosplenomegaly Skin: no rashes, warm and dry Psychiatric: Orientation: alert Results & Data Results & Data ([facility]) Vital Signs (Past 12 Hours) Vital Signs Temp Pulse Pulse Resp BP BP Pulse Ox 01/02/23 13:44 37.1 C 86 20 133/87 94 01/02/23 09:55 36.8 C 87 16 139/91 95 01/02/23 07:29 89 01/02/23 06:39 36.7 C 93 H 18 138/90 92 01/02/23 04:02 O2 Del Method 01/02/23 13:44 Room Air 01/02/23 09:55 Room Air 01/02/23 07:29 01/02/23 06:39 Room Air 01/02/23 04:02 Room Air
[2023-01-02] MEDS: DOCUSATE SODIUM/SENNA 50/8.6MG TAB PO SCH (21:44)
[2023-01-03] MEDS: POLYETHYLENE (MIRALAX) 17 GM PACK PO SCH ×3 (05:38→18:09)
[2023-01-03] MEDS: ASPIRIN 81 MG ECTAB PO SCH ×2 (09:02→21:22)
[2023-01-03] MEDS: DONEPEZIL HCL 5 MG TAB PO SCH (09:03)
[2023-01-03] MEDS: CHOLECALCIFEROL 1,000 UNITS 25 MCG TAB PO SCH (09:03)
[2023-01-03] MEDS: dilTIAZem HCL 180 MG CAPCR PO SCH (09:03)
[2023-01-03] MEDS: ACETAMINOPHEN 500 MG TAB PO SCH ×3 (09:04→21:05)
[2023-01-03] MEDS: dexAMETHasone 2 MG in SYRINGE 0 ML IV SCH (09:04)
[2023-01-03] MEDS: ENOXAPARIN INJ 40 MG/0.4 ML SYR SQ SCH (09:04)
--- NOTE | 2023-01-03 18:11 | Hospitalist Progress Note ---
Date of Service January 03, 2023 Assessment & Plan (1) Closed left hip fracture: Plan: - Acetaminophen 1 g p.o./IV 3 times daily - Morphine 2 to 4 mg IV every 4 hourly as needed - Status post arthroplasty on 12/28/2022. Tolerated procedure well. - Appreciate orthopedic recommendations - Remove gates on 01/01/23 - DVT prophylaxis-Aspirin BID per Ortho, in addition to Lovenox 40 mg daily due to COVID-19 - will need osteoporosis treatment as outpatient given ground-level fall/fracture - consider bisphosphonate. Defer to PCP at [facility] - PT and OT consults in -attempted referral to [facility] but they would not accept. [facility] tomorrow at 11 AM. (2) Hypoxia: Plan: Hypoxia / to COVID-19/multifocal pneumonia. Hypoxia resolved as of 12/30, after 24 hours COVID/pneumonia treatments and after 1 dose Lasix 40mg IV. Doing well. -Due to overall improvement in breathing and no consolidation seen on chest x- ray, discontinue azithromycin and Rocephin. -Remdesivir completed 01/03 - day 6 Decadron - Currently on 2 mg, continue until discharge (3) Atrial fibrillation: Plan: - Rate controlled with current diltiazem dosage. Continue. (4) Unspecified dementia, unspecified severity, with other behavioral disturbance: Plan: -Continue donepezil 5 mg p.o. daily (5) Hypertension: Plan: -Continue diltiazem CD 180 mg p.o. daily -Blood pressure has been well controlled since admission. (6) Microscopic hematuria: Plan: -Follow-up outpatient, recommend repeating in 4 weeks however suspect due to trauma from Gates catheter on admission (7) Schizophrenia: Plan: -Reported history of this however no delusions or hallucinations noted by RN in the [facility] -Confirm not treated with antipsychotics Plan VTE Prophylaxis -Lovenox (COVID) and ASA BID Diet -heart healthy with pured foods. CODE STATUS: Full code Disposition -med/tele. NOTE: patient has Plavix listed in home med list but unclear reason for this. Will defer to patient's physician in [facility] to determine timing of re-starting Plavix although this may need to be done sooner rather than later depending on indication (will be discharged on ASA BID x6 weeks for ortho DVT ppx as well) [facility] , which will be coordinated by tarah Kim/[facility] on 01/04/23 Admission and Anticipated Discharge Date Admission Date: December 27, 2022 Supervising Physician Co-Signing Physician Notes Resident Physician Supervision Note: I independently interviewed and examined the patient and verified the cornell history and physical, reviewed labs and image studies and agree with resident findings and care plan. Subjective Patient seen at bedside this morning. No acute events reported overnight. No new complaints today. Awaiting placement Review of Systems Review of Systems: All systems reviewed & are unremarkable except as noted in HPI & below Physical Exam Constitutional: WD/WN, vitals as above Eyes: + anicteric sclerae Neck: normal visual inspection Respiratory: normal respiratory effort Cardiovascular: Rate/Rhythm: + irregularly irregular Heart Sounds: no murmur Extremities: no edema Gastrointestinal (Abdomen): normal bowel sounds, soft, nontender, no hepatosplenomegaly Skin: no rashes, warm and dry Psychiatric: Orientation: alert Results & Data Results & Data ([facility]) Vital Signs (Past 12 Hours) Vital Signs Temp Pulse Pulse Pulse Resp BP Pulse Ox 01/03/23 16:33 95 H 01/03/23 14:46 36.7 C 99 H 20 154/88 H 93 01/03/23 11:36 36.6 C 114 H 20 146/93 H 93 01/03/23 09:00 01/03/23 08:01 35.8 C L 105 H 20 163/105 H 95 01/03/23 07:13 85 01/03/23 06:23 92 H 176/106 H O2 Del Method 01/03/23 16:33 01/03/23 14:46 Room Air 01/03/23 11:36 Room Air 01/03/23 09:00 Room Air 01/03/23 08:01 Room Air 01/03/23 07:13 01/03/23 06:23
[2023-01-03] MEDS: DOCUSATE SODIUM/SENNA 50/8.6MG TAB PO SCH (21:22)
[2023-01-04] MEDS ORDERED: carvediloL 3.125 MG TAB PO ONE (00:30)
[2023-01-04] MEDS: POLYETHYLENE (MIRALAX) 17 GM PACK PO SCH ×2 (01:05→05:17)
[2023-01-04] MEDS: dilTIAZem HCL 180 MG CAPCR PO SCH (09:23)
[2023-01-04] MEDS: ASPIRIN 81 MG ECTAB PO SCH (09:23)
[2023-01-04] MEDS: ENOXAPARIN INJ 40 MG/0.4 ML SYR SQ SCH (09:24)
[2023-01-04] MEDS: CHOLECALCIFEROL 1,000 UNITS 25 MCG TAB PO SCH (09:24)
[2023-01-04] MEDS: DONEPEZIL HCL 5 MG TAB PO SCH (09:25)
[2023-01-04] MEDS: dexAMETHasone 2 MG in SYRINGE 0 ML IV SCH (09:25)
[2023-01-04] MEDS: ACETAMINOPHEN 500 MG TAB PO SCH (09:26)
--- NOTE | 2023-01-04 13:03 | Discharge Summary ---
Date of Service January 04, 2023 Admission HPI Per Admitting Provider Tyler Laguerre is an 82 year old on the dementia unit at [facility] who presents to the ER with left hip pain after falling twice today. Unclear history from the patient. He reports slipping while holding onto a sink. Reportedly the toilet and sink are all one piece and somehow he slipped on urine. He denies any chest pain, shortness of breath, dizziness prior to falling. Difficulty ambulating with left leg pain after voiding. Reportedly he was complaining of left elbow pain at the present although he denies this currently. He denies any fever, chills, cough, abdominal pain, diarrhea. Principal Diagnosis L hip fracture Discharge Exam Constitutional WD/WN, vitals as above Eyes + anicteric sclerae Neck normal visual inspection Respiratory normal respiratory effort Cardiovascular Rate/Rhythm: + irregularly irregular Heart Sounds: no murmur Extremities: no edema Gastrointestinal (Abdomen) normal bowel sounds, soft, nontender, no hepatosplenomegaly Skin no rashes, warm and dry Psychiatric Orientation: alert Discharge Data Allergies Allergy/AdvReac Type Severity Reaction Status Date / Time No Known Allergies Allergy Unverified 12/27/22 14:23 Consultations 12/27/22 14:32 ED Decision to Admit Stat 12/27/22 16:23 Consult Orthopedic Surgery Routine Procedures Performed Operation Date: 12/28/22 11:00 Actual Procedures p Left Cemented Bipolar Arthroplasty(Left) - Nathan Ortega MD Ordered Studies 12/27/22 12:39 CT head/brain wo con Stat Hospital Course (1) Closed left hip fracture: Patient was brought to the hospital for evaluation of left hip fracture. He was evaluated by our orthopedic surgeon who recommended arthroplasty which was performed on the first day of admission and patient tolerated this procedure without any difficulty. Pain was overall controlled after the procedure and he was started on aspirin twice daily DVT prophylaxis. Physical therapy and Occupational Therapy was started who recommended SNF. A referral was initially placed to [facility], however, they rejected this referral. For this reason, he was sent back to the group home to receive physical therapy. The orthopedic surgeon also wants him to follow-up in 2 to 3 weeks for checkup. Continue taking the aspirin 81 mg twice daily for 6 weeks. Because of this fall and fracture, he automatically qualifies for the diagnosis of osteoporosis. We recommend utilization of a bisphosphonate in the outpatient setting. (2) COVID-19: Hypoxic on admission and noted to have infiltrate on CXR. Treated with remdesivir and dexamethasone per protocol. His symptoms gradually improved and has not required supplemental oxygen in the past 4 days prior to discharge. (3) Hypoxia: Noted on admission. sec to covid 19. resolved at the time of discharge. (4) Atrial fibrillation: - Rate controlled with current diltiazem dosage. Continue. (5) Unspecified dementia, unspecified severity, with other behavioral disturbance: -Continue donepezil 5 mg p.o. daily (6) Hypertension: -Continue diltiazem CD 180 mg p.o. daily -Blood pressure has been well controlled since admission. (7) Microscopic hematuria: -Follow-up outpatient, recommend repeating in 4 weeks however suspect due to trauma from Gates catheter on admission (8) Schizophrenia: -Reported history of this however no delusions or hallucinations noted by RN in the [facility] -Confirm not treated with antipsychotics Plan VTE Prophylaxis -ASA BID Diet -heart healthy with pured foods. CODE STATUS: Full code Disposition -med/tele. NOTE: patient has Plavix listed in home med list but unclear reason for this. Will defer to patient's physician in group home to determine timing of re-starting Plavix although this may need to be done sooner rather than later depending on indication (He is discharged on ASA BID x6 weeks for ortho DVT ppx as well) Total Time Total Time Spent Total Time Spent (In Minutes): 30 Discharge Plan Discharge Items [facility] Reason For Visit: LEFT HIP FRACTURE, A FIB RVR Discharge Diagnosis: Left Hip Arthroplasty for fracture Activity: Per Instructions section Activity Comment: Follow/Obey hip precautions at all times. Weightbearing: Full weightbearing Weightbearing Comment: Weightbear as tolerated obeying hip precautions at all times. Non-emergency contact: Primary Care Provider and Surgeon Call non-emergency contact if: you have any medication questions, your pain is not controlled and your temperature is above 101.5 Follow-up/Referrals: Nathan Ortega MD [Physician] - (Orthopedic follow-up 2-3 weeks from surgery date.) Julio GOLD [Primary Care Provider] - Diet: Regular Addtl Attending Provider Instructions: ACTIVITY RECOMMENDATIONS: Physical Therapy: * Aggressive physical therapy is not usually needed. You will learn to take care of yourself safely and walk. * Follow the "Hip Precautions Instructions." * In some cases, the social work assistant at the hospital will arrange to have a therapist come to your house for the first couple of weeks to help you learn these skills. * You need to practice on your own or with the help of a family member as needed. * When you learn these skills, most of the therapy can be done on your own. Home Exercise: * You were shown a series of exercises in the hospital. Do these exercises three to four times each day including the exercises you were shown in physical therapy. Walking: * Get up and walk several times each day. For the first four weeks, try not to stand or walk for more than one hour at a time. If you do stand or walk for more than one hour, you will not hurt anything, but your leg will likely swell. * As you feel comfortable, you may change from the walker or crutches to a cane and then to independent walking. MEDICATIONS: New Medicine: * You will likely be taking one or more of these medicines: 1. Tramadol - Take, as directed, when you need it, every six hours to control your pain. 2. Aspirin - Thins your blood to lessen the chance of forming a blood clot. * The most common side effects of pain medicine and iron are nausea and constipation. If nausea or constipation is too much of a problem or if you have any questions about your new medicines or doses, call [facility] at . We will try to help you manage these issues. "VERY IMPORTANT TO READ AND REVIEW" Pain: * The immediate post-operative period after hip replacement surgery is often quite painful. * You are given a prescription for pain medicine. You should take it, as directed, when you need it, especially before physical therapy and before going to bed. Pain that interferes with sleep is very common and can last several months. * You will likely need pain medicine for the first two to four weeks. It will not stop all of the pain. The pain will lessen and as you feel better, you may change to milder pain medicine such as Tylenol. * The most common side effects of pain medicine are nausea and constipation, so don't take more than you need. SPECIAL CARE INSTRUCTIONS: TEDs/Elastic Stockings: * The white elastic stockings help limit swelling and prevent blood clots from forming in your legs. The more you wear them, the more they work. * Wear them for six weeks. Incision Site Care: * Remove dressing postoperative day 2 and then shower. Keep direct shower pressure off the incision site. * After showering, cover annita with dry gauze and change daily or more frequently if the dressing is getting saturated with drainage. * May completely stop using bandage if wound is dry and no drainage * Carbon are removed between 2 and 3 weeks post-op. If your follow-up appointment is made before 2 weeks, please have your appointment re- scheduled. It is too early to remove the annita. Prevention of Infection: * Take antibiotics one hour before any dental cleaning, dental work, urological procedure, gastrointestinal procedure or any invasive surgery in order to prevent your new joint from getting infected. * You may get the antibiotics from the doctor performing the procedure or you may call our office at before and we will call in a prescription to the pharmacy of your choice. Things to Watch For: * Drainage from the incision site that occurs more than one week after your surgery. * Severely increased leg pain or swelling. * Increased redness at the incision site. * Fever above 102 degrees Fahrenheit. * Unusual chest pain or shortness of breath. * Unusual pain or burning with urination. Call [facility] at with any of the above problems or if you have any questions about your medicines or recovery. FOLLOW UP VISIT: Make an appointment to see your doctor for approximately two weeks after surgery for a progress check and staple removal by calling the office at [phone]. 1) Closed left hip fracture: Plan: - Acetaminophen 1 g p.o./IV 3 times daily - Morphine 2 to 4 mg IV every 4 hourly as needed - Status post arthroplasty on 12/28/2022. Tolerated procedure well. - Removed gates on 01/01/23 - DVT prophylaxis-Aspirin BID per Ortho, continue until f/u in 2-3 weeks - will need osteoporosis treatment as outpatient given ground-level fall/fracture - consider bisphosphonate. Defer to PCP at group home - PT and OT consults in -attempted referral to [facility] but they would not accept. [facility]/23 at 11 AM. (2) Hypoxia: Plan: Hypoxia 2/2 to COVID-19/multifocal pneumonia. Hypoxia resolved as of 12/30, after 24 hours COVID/pneumonia treatments and after 1 dose Lasix 40mg IV. Doing well. -Due to overall improvement in breathing and no consolidation seen on chest x- ray, discontinue azithromycin and Rocephin. -Remdesivir completed 01/03 - day 6 Decadron - Currently on 2 mg, continue until discharge (3) Atrial fibrillation: Plan: - Rate controlled with current diltiazem dosage. Continue. (4) Unspecified dementia, unspecified severity, with other behavioral disturbance: Plan: -Continue donepezil 5 mg p.o. daily (5) Hypertension: Plan: -Continue diltiazem CD 180 mg p.o. daily -Blood pressure has been well controlled since admission. (6) Microscopic hematuria: Plan: -Follow-up outpatient, recommend repeating in 4 weeks however suspect due to trauma from Gates catheter on admission (7) Schizophrenia: Plan: -Reported history of this however no delusions or hallucinations noted by RN in the [facility] -Confirm not treated with antipsychotics Plan VTE Prophylaxis -Lovenox (COVID) and ASA BID Diet -heart healthy with pured foods. CODE STATUS: Full code Disposition -D/C to group home. NOTE: patient has Plavix listed in home med list but unclear reason for this. Will defer to patient's physician in group home to determine timing of re-starting Plavix although this may need to be done sooner rather than later depending on indication (will be discharged on ASA BID x6 weeks for ortho DVT ppx as well) Pending Studies at Discharge: No Stand-Alone Forms: My [facility] Skilled Items Patient informed of condition?: Yes Discharge Level of Care: Skilled Communicable Disease: No Discharge Prognosis: Improving Lines: None Urinary Catheter: No Medications and DC Order Prescriptions: Continued furosemide 40 mg Tablet 40 mg PO BID donepezil 5 mg Tablet 5 mg PO DAILY diltiazem HCl [Cardizem CD] 180 mg Capsule,Extended Release 24hr 180 mg PO DAILY clopidogrel 75 mg Tablet 75 mg PO DAILY acetaminophen 500 mg Tablet 500 mg PO BID potassium chloride 20 mEq Tablet,Er Particles/Crystals 20 meq PO BID Discharge Orders: Discharge Order (Routine); Ordered 01/04/23 Ordered By: Amor Castro/Other Patient Handouts: Hip Fracture Common Questions Admission Data Admit Date/Time: 12/27/22 14:34 Attending Provider: Tanya Madrid Admit Provider: Lakhwinder Alex Primary Care Provider: Julio GOLD Other Providers: Lakhwinder Alex ; Nathan Ortega ; Luciano Clobert ; [facility] Other Interventions: Discharge Summary Assessment (RN) Last Done: 01/04/23 10:42 Supervising Physician Co-Signing Physician Notes Resident Physician Supervision Note: I independently interviewed and examined the patient and verified the cornell history and physical, reviewed labs and image studies and agree with resident findings and care plan.
== END 2023-01-04 12:26 | DRG 521 ==
LOC: ED 12:21 → EDINP 14:34 → SUATTDRO 14:34 → 2N 16:23

== ENCOUNTER 2024-12-11 16:56 | Observation (INO) ==
--- NOTE | 2024-12-11 17:38 | Emergency Department Note ---
History of Present Illness General Chief complaint: Bleeding Stated complaint: BLEEDING NOSE, FACIAL PAIN Time Seen by Provider: 12/11/24 17:28 History of Present Illness This is an 84-year-old male that presents to the emergency department accompanied by 2 corrections officers with complaints of "epistaxis". The patient reportedly is in the dementia unit at [facility] per correctional treatment specialist at bedside. History obtained from patient, corrections officers at bedside as well as per review of the accompanying documentation with the patient. Additionally, history obtained from the call in sheet on the patient's chart as it appears the [facility] did call and speak to a physician here in the ED. Per review of documenttion, this is the patient's fourth ED visit in the past few days for right-sided epistaxis. Per review of the call in sheet, definitive management is requested for the epistaxis prior to returning to the [facility] noting the ongoing epistaxis issue despite ED visit x 3 prior to current evaluation. Patient denies any pain at the present time. No lightheadedness or dizziness. It appears the patient was previously on Plavix but this was stopped on the of this month noting the epistaxis. Home Medications Medication Instructions Recorded Confirmed Type clopidogrel 75 mg tablet 75 mg PO DAILY 12/27/22 12/11/24 History diltiazem HCl 180 mg 180 mg PO DAILY 12/27/22 12/11/24 History capsule,extended release 24 hr (Cardizem CD) donepezil 5 mg tablet 5 mg PO QAM 12/27/22 12/11/24 History furosemide 40 mg tablet 40 mg PO BID 12/27/22 12/11/24 History potassium chloride 20 mEq 20 meq PO BID 12/27/22 12/11/24 History tablet,extended release(part/cryst) Lactobacillus acidophilus 1 cap PO BID 12/11/24 12/11/24 History (Acidophilus capsule) cyanocobalamin (vitamin B-12) 1,000 mcg PO DAILY 12/11/24 12/11/24 History 1,000 mcg tablet (Vitamin B-12) donepezil 10 mg tablet 10 mg PO HS 12/11/24 12/11/24 History loperamide 2 mg tablet 4 mg PO TID PRN Diarrhea 12/11/24 12/11/24 History (Anti-Diarrheal (loperamide)) mupirocin 2 % topical ointment 1 applic topical TID 7 days #22 12/12/24 Rx grams sodium chloride 0.65 % nasal spray 2 spray intranasal QID 7 days #44 12/12/24 Rx aerosol (Saline Nasal) mL Allergies Allergy/AdvReac Type Severity Reaction Status Date / Time No Known Allergies Allergy Verified 12/11/24 17:43 Past Med/Surg History Problem List (Updated 12/12/24 @ 04:21 by Chico Ulrich MD) Acute blood loss anemia (ABLA) Epistaxis (Acute) Acute anterior epistaxis (Acute) COVID-19 Encounter for pre-operative examination Schizophrenia Hypoxia (Acute) Microscopic hematuria Closed left hip fracture (Acute) Hypertension Atrial fibrillation (Acute) Unspecified dementia, unspecified severity, with other behavioral disturbance Medical History Severe alcohol use disorder Cataracts, bilateral Periodic headache syndrome Social History Smoking Status: Never smoker Do You Dip or Chew Tobacco: No; Hx Alcohol Use: No Hx Substance Use: No Preferred Language: Icelandic Communication Ability: Impaired 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 Beliefs That Will Affect Care: None Current Living Situation: Other Current Living Situation Comment: [facility] Other Information That Helps Us Care for You: No Feels Safe at Home: Yes Safety Concerns: Feels Safe At This Time Assistive Devices: None Review of Systems A total of 10 systems reviewed and were otherwise negative Physical Exam Vital Signs Vital Signs - 24 hr 12/11/24 17:00 12/11/24 17:37 12/11/24 17:37 Temperature 36.0 C L Temperature Source Temporal Artery Scan Pulse Rate 105 H Pulse Rate [Apical] 82 Pulse Rhythm [Apical] Irregular Pulse Strength [Apical] Normal Respiratory Rate 20 16 Respiratory Effort / Characteristics Non-Labored Spontaneous Respiratory Depth Normal Respiratory Pattern Regular Blood Pressure 104/61 Blood Pressure [Left Arm] 117/76 Blood Pressure Mean 75 Blood Pressure Mean [Left Arm] 89 Blood Pressure Position [Left Arm] Sitting Pulse Oximetry 97 95 94 Oxygen Delivery Method Room Air Room Air Sepsis Recent Fever Within 48 Hours No Sepsis New/Unexplained Change in Mental Status N/A Sepsis Action Taken by Nursing No Action Required 12/11/24 18:59 12/11/24 19:00 12/11/24 21:00 Temperature Temperature Source Pulse Rate 77 Pulse Rate [Apical] 84 95 H Pulse Rhythm [Apical] Pulse Strength [Apical] Respiratory Rate 15 24 Respiratory Effort / Characteristics Non-Labored Spontaneous Non-Labored Spontaneous Respiratory Depth Normal Normal Respiratory Pattern Regular Blood Pressure Blood Pressure [Left Arm] 120/74 110/75 Blood Pressure Mean Blood Pressure Mean [Left Arm] 89 86 Blood Pressure Position [Left Arm] Pulse Oximetry 98 97 Oxygen Delivery Method Room Air Room Air Sepsis Recent Fever Within 48 Hours Sepsis New/Unexplained Change in Mental Status Sepsis Action Taken by Nursing 12/11/24 21:27 Temperature Temperature Source Pulse Rate 74 Pulse Rate [Apical] Pulse Rhythm [Apical] Pulse Strength [Apical] Respiratory Rate Respiratory Effort / Characteristics Respiratory Depth Respiratory Pattern Blood Pressure Blood Pressure [Left Arm] Blood Pressure Mean Blood Pressure Mean [Left Arm] Blood Pressure Position [Left Arm] Pulse Oximetry Oxygen Delivery Method Sepsis Recent Fever Within 48 Hours Sepsis New/Unexplained Change in Mental Status Sepsis Action Taken by Nursing VITAL SIGNS - Vital signs and nursing notes were reviewed. Stable and afebrile. GENERAL -84-year-old male appearing his stated age who is in no acute distress. Communicates well with provider and answers questions appropriately. SKIN - Without rashes. There is a Tegaderm dressing overlying the nose with some blood in the dependent portion of the dressing with visualized nasal packing on the right side. HEAD - NC/AT. EYES - PERRL with EOMI bilaterally. Sclera anicteric. No hyphema. EARS - No deformities of external structures noted on gross examination bilaterally. External auditory canals without discharge or otorrhea. Tympanic membranes pearly rodriguez without retraction or bulging. No fluid or purulent material visualized behind the TM. Handle of malleus, umbo, cone of light, pars tensa/flaccid all easily visualized. NOSE - Midline and without cyanosis. Nose is covered with Tegaderm dressing with visualized packing noted to the right nostril region. Small amount of bright red blood noted within the packing. MOUTH/OROPHARYNX - Without perioral cyanosis. Buccal mucosa pink and moist and without leukoplakia. Tongue midline with equal elevation of palate bilaterally. No tonsillar hypertrophy, erythema, or exudates noted. Fair dentition noted. No blood in the posterior pharynx. NECK - Neck with FROM. No nuchal rigidity. LUNGS -clear to auscultation. CARDIAC - RRR EXTREMITIES - No clubbing or peripheral cyanosis. +5/5 strength noted in UE/LE bilaterally. NEUROLOGIC - Cranial nerves grossly intact. PSYCH -alert, oriented and pleasant on exam. Course Administered Medications Discontinued Medications Amoxicillin/Clavulanate Potassium (Amoxicillin/Clavulanate 875 Mg Tab) 1 tab PO BIDM [facility]; Protocol Stop: 12/22/24 07:59 Last Admin: 12/12/24 09:15 Dose: 1 tab Documented By: BERNARDINO Cyanocobalamin (Cyanocobalamin (B-12) 500 Mcg Tablet) 1,000 mcg PO DAILY [facility] Stop: 01/11/25 08:59 Last Admin: 12/12/24 09:15 Dose: 1,000 mcg Documented By: BERNARDINO Diltiazem HCl (Diltiazem Hcl 180 Mg Capcr) 180 mg PO DAILY [facility] Stop: 01/11/25 08:59 Last Admin: 12/12/24 09:16 Dose: 180 mg Documented By: BERNARDINO Donepezil HCl (Donepezil Hcl 5 Mg Tab) 5 mg PO QAM [facility] Stop: 01/11/25 08:59 Last Admin: 12/12/24 09:16 Dose: 5 mg Documented By: BERNARDINO Potassium Chloride/Sodium Chloride (Normal Saline W/20 Meq Kcl) 20 meq in 1,000 mls @ 80 mls/hr IV .[id number] [facility] Stop: 12/12/24 10:44 Last Infusion: 12/12/24 10:54 Dose: Infused Documented By: Admin: 12/11/24 22:22 Dose: 80 mls/hr Documented By: KENRICK Lactobacillus Acidophilus (Advanced Probiotic 625 Mg Capsule) 625 mg PO BID [facility] Stop: 01/11/25 08:59 Last Admin: 12/12/24 09:16 Dose: 625 mg Documented By: BERNARDINO Oxymetazoline HCl (Oxymetazoline 0.05% 30 Ml Btl) Confirm Administered Dose 150 sprays .ROUTE .STK-MED ONE Stop: 12/11/24 20:59 Last Admin: 12/11/24 21:26 Dose: 2 sprays Documented By: KENRICK Potassium Chloride (Potassium Chloride Crtab 20 Meq Tabcr) 40 meq PO NOW STA Stop: 12/11/24 22:13 Last Admin: 12/11/24 22:20 Dose: 40 meq Documented By: KENRICK Potassium Chloride (Potassium Chloride Crtab 20 Meq Tabcr) 20 meq PO BID BRIANNA Stop: 01/11/25 08:59 Last Admin: 12/12/24 09:24 Dose: 20 meq Documented By: BERNARDINO Silver Nitrate/Potassium Nitrate (Silver Nitr/Potassium Nitrate Applicator) Confirm Administered Dose 3 appl .ROUTE .STK-MED ONE Stop: 12/11/24 20:55 Last Admin: 12/11/24 20:56 Dose: 3 appl Documented By: FLORES Medical Decision Making Laboratory Data 12/12/24 05:31 12/12/24 05:31 Lab Results 12/11/24 12/11/24 Range/Units 17:34 19:06 WBC 8.07 (4.8-10.8) K/ul RBC 3.76 L (4.70-6.10) M/uL Hgb 11.9 L (14.0-18.0) g/dl Hct 35.5 L (42.0-52.0) % MCV 94.4 (80.0-100.0) fL MCH 31.6 (25.0-34.0) pg MCHC 33.5 (32.0-36.0) g/dL RDW Std Deviation 44.9 (36.4-46.3) fL RDW Coeff of Sammy 13.1 (11.5-14.5) % Plt Count 147 (130-400) K/uL MPV 14.1 H (9.4-12.4) fL Immature Gran % (Auto) 0.2 % Neut % (Auto) 82.2 % Lymph % (Auto) 12.0 % [place] % (Auto) 5.0 % Eos % (Auto) 0.0 % Baso % (Auto) 0.6 % Neut # (Auto) 6.63 H (1.40-6.50) K/uL Lymph # (Auto) 0.97 L (1.20-3.40) K/uL [place] # (Auto) 0.40 (0.11-0.59) K/uL Eos # (Auto) 0.00 (0.00-0.50) K/uL Baso # (Auto) 0.05 (0.00-0.20) K/uL Immature Gran # (Auto) 0.02 (0.01-0.20) K/uL PT Cancelled 11.9 INR Cancelled 1.1 APTT Cancelled 27 PTT Ratio Cancelled 1.0 Sodium 140 (136-145) mmol/L Potassium 3.7 (3.5-5.1) mmol/L Chloride 105 (98-107) mmol/L Carbon Dioxide 27 (21-32) mmol/L Anion Gap 8 (3-11) BUN 43 H (6-23) mg/dl Creatinine 1.27 (0.6-1.4) mg/dl Est Cr Clr Drug Dosing Not Reportable eGFR 55.71 BUN/Creatinine Ratio 33.9 H (10-20) Glucose 108 H (70-99(Fasting)) mg/dl Calcium 9.5 (8.6-10.3) mg/dl Magnesium 2.1 (1.7-2.4) mg/dl Total Bilirubin 1.4 H (0.2-1.0) mg/dl AST 16 (13-39) U/L ALT 12 (7-52) U/L Alkaline Phosphatase 36 (34-104) U/L Total Protein 6.2 (6.0-8.3) gm/dl Albumin 4.1 (3.4-5.0) gm/dl Globulin 2.1 L (2.5-4.0) gm/dl Albumin/Globulin Ratio 2.0 (0.9-2) MDM Narrative Patient was seen and evaluated as above in room A02. Review was performed of triage nursing notes and vital signs. Patient presents to us today for evaluation of a right sided epistaxis. The patient is clinically well-appearing and nontoxic. Vital signs are stable. There is a Tegaderm dressing overlying the nose with visualized packing to the right nostril region. IV access with established. Labs were drawn. No leukocytosis. There is a 2.5 point drop in hemoglobin now 11.9. No emergent metabolic disturbance. Mild elevation of T. bili at 1.4. This is the patient's fourth ED visit for similar in the past few days. I did discuss presentation with the on-call ENT specialist, Dr. Gonzalez. Recommendation was removal of the current packing which I initially thought was a 5.5 cm rapid Rhino per previous documentation followed by replacement with a 7.5 rapid Rhino if there is bleeding. Recommendation was if bleeding stopped with the packing, discharge back to [facility] with outpatient ENT follow-up. I then went to bedside. The Tegaderm dressing was removed and on the right side there was a tiny, less than 2 cm piece of gauze at the nostril and there was no longer any rapid Rhino as initially thought. I did call and speak to the [facility] and it was noted that the packing was removed today and then the patient was noted to have a fair amount of bleeding from the nose with blood on the bed sheets therefore they placed a small piece of gauze to the nose and Tegaderm dressing prior to presentation here. They also noted the Tegaderm was utilized as the patient was manipulating/touching the nose. When I removed the small piece of gauze there was no further bleeding from the nose. I also inspected the posterior pharynx and there was no blood noted. I discussed presentation with the ED attending physician as well, Dr. Cage. Together we meticulously cleansed the right nasal passage to remove any of the remanent dried blood via a sterile cotton swab moistened with sterile saline. There were a few areas where the bleeding appeared to have been originating but no hemorrhage at this time. The patient does not desire repeat packing with the rapid rhino. The patient I will note was touching the face/nose area during his time here and I am worried that replacement of a rapid Rhino may be manipulated by the patient causing further bleeding/harm. In discussing options with the patient and ED attending physician, we do believe that nasal cautery at this time is reasonable and best option noting specific scenario. Verbal consent was obtained from the patient. It was felt that the benefit outweighed risk. Silver nitrate sticks were utilized to meticulously and very carefully cauterize a few areas within the right nasal passage that exhibited a few tiny areas recent bleeding. Cautery performed at bedside in combination with ED attending physician. A few areas were noted both medial and lateral without any evidence of septal perforation. No posterior bleeding noted. Patient tolerated this well. No further bleeding noted. Patient was reevaluated and there was no further bleeding. No blood in the posterior pharynx. [facility], observation overnight is felt to be reasonable to ensure no further bleeding but also to trend hemoglobin. At this time I do believe that observation overnight in the inpatient setting is reasonable. Case discussed with the hospitalist service. Please refer to further documentation regarding his stay. GCS: 15 In the evaluation and treatment of this patient the following differential diagnoses were entertained: Epistaxis, anemia, bleeding disorder, among others. Impression & Plan Acute anterior epistaxis Discharge Plan Visit Data Chief Complaint: Bleeding Stated Complaint: BLEEDING NOSE, FACIAL PAIN ED Provider: [facility] Midlevel Provider: Arnulfo Salamanca Discharge Problem: Acute anterior epistaxis Patient Disposition: Admitted As Inpatient Condition: Good Discharge Instructions Interventions: ED Discharge Assessment Last Done: 12/11/24 22:56 Addendum December 16, 2024 02:31 I was consulted by the Advanced Practice Provider and was substantively involved in the patient's visit.This includes aspects of the HPI, MDM, diagnostic interpretations, and disposition/plan. I discussed the case with the ZOLTAN and agree with the findings and plan as documented in ZOLTAN Cheikh's note.
[2024-12-11 17:58] LABS: Basophils # (auto) 0.05 K/uL (0.00-0.20); Basophils % (auto) 0.6 %; Hematocrit (blood only) 35.5 % (42.0-52.0); Hemoglobin 11.9 g/dl (14.0-18.0); Immature Granulocytes # (auto) 0.02 K/uL (0.01-0.20); Immature Granulocytes % (auto) 0.2 %; Lymphocytes # (auto) 0.97 K/uL (1.20-3.40); Mean Corpuscular Hemoglobin 31.6 pg (25.0-34.0); Mean Corpuscular Hgb Conc 33.5 g/dL (32.0-36.0); Mean Corpuscular Volume 94.4 fL (80.0-100.0); Mean Platelet Volume 14.1 fL (9.4-12.4); Neutrophils # (auto) 6.63 K/uL (1.40-6.50); Neutrophils % (auto) 82.2 %; Platelet Count 147 K/uL (130-400); RDW Coefficient of Variation 13.1 % (11.5-14.5); RDW Standard Deviation 44.9 fL (36.4-46.3); Red Blood Count 3.76 M/uL (4.70-6.10); White Blood Count 8.07 K/ul (4.8-10.8)
[2024-12-11 18:07] LABS: Alanine Aminotransferase 12 U/L (7-52); Albumin Level 4.1 gm/dl (3.4-5.0); Alkaline Phosphatase 36 U/L (34-104); Anion Gap 8 (3-11); Aspartate Aminotransferase 16 U/L (13-39); BUN Creatinine Ratio 33.9 (10-20); Bilirubin,Total 1.4 mg/dl (0.2-1.0); Blood Urea Nitrogen 43 mg/dl (6-23); Calcium 9.5 mg/dl (8.6-10.3); Carbon Dioxide 27 mmol/L (21-32); Chloride 105 mmol/L (98-107); Globulin 2.1 gm/dl (2.5-4.0); Glucose 108 mg/dl (70-99(Fasting)); Potassium 3.7 mmol/L (3.5-5.1); Sodium 140 mmol/L (136-145); Total Protein 6.2 gm/dl (6.0-8.3)
[2024-12-11 19:49] LABS: INR 1.1 (0.9-1.1); Partial Thromboplastin Time 27 Seconds (21-31); Prothrombin Time 11.9 Seconds (9.0-12.0)
[2024-12-11] MEDS: SILVER NITR/POTASSIUM NITRATE APPLICATOR ONE (20:56)
[2024-12-11] MEDS: OXYMETAZOLINE 0.05% 30 ML BTL ONE (21:26)
--- NOTE | 2024-12-11 22:18 | History & Physical Report ---
Date of Service December 11, 2024 Assessment & Plan (1) Acute anterior epistaxis: (2) Schizophrenia: (3) Hypertension: (4) Atrial fibrillation: (5) Unspecified dementia, unspecified severity, with other behavioral disturbance: (6) Acute blood loss anemia (ABLA): Plan The patient is a 84-year-old male resident of [facility] since 1983, and for the last several years has been a resident in the dementia pal there. Past medical history includes atrial fibrillation/unspecified dementia with unspecified severity with other behavioral disturbance, hypertension, schizophrenia, recurrent epistaxis, CHF, and intermittent diarrhea.The patient returns to the emergency department for the fourth day in a row, per staff at [facility], due to concerns regarding recurrent epistaxis as noted by guards from [employer] [facility]. The patient was initially seen at the emergency department on 12/07, after facial trauma, and was found to have multiple nasal bone fractures. He had a Rhino Rocket placed on 12/07. The Rhino Rocket was then replaced on 12/09, and hemoglobin at that time was 14. On 12/11, patient was seen in the emergency department again, for reported recurrent epistaxis, and this time hemoglobin had dropped to 11.9. Patient has been on clopidogrel for reported history of atrial fibrillation and unspecified dementia. The patient is a resident of the dementia pal at the [facility], and HPI and ROS are somewhat limited due to that history of dementia and schizophrenia. The patient has been presented to [facility] to be observed over the evening, at the request of [facility], will have laboratories rechecked in the a.m., and if stable to be returned back in the a.m. The ultimate plan is for patient to follow-up with ENT when can be arranged. Acute blood loss anemia- Hemoglobin has decreased from 14.4 on 12/09, to 11.9 this evening. Secondary to acute anterior epistaxis Continue to hold clopidogrel since 12/07 Will repeat laboratories in the a.m. He presently is not bleeding, so will not reverse with DDAVP at this time He has been on Augmentin twice daily, which will be continued. But he does not currently have packing as noted by the ED after attempted cauterization there this evening Recurrent acute anterior epistaxis- ENT recommends conservative treatment with packing and follow-up Patient is being admitted due to concerns of Julio regarding declining hemoglobin and will be monitored overnight Will hold furosemide and potassium chloride due to significant mucous membrane dryness Placed on NSS plus KCl 20 mEq at 80 mL/h x 1 L Nasal bone fracture, right greater than left- As noted on CT of 12/07 Will need ENT follow-up PVCs/atrial fibrillation/hypertension- Patient was noted to have runs of PVCs on monitor Will give Klor-Con 40 mill equivalents p.o., and IV fluids as noted above Magnesium level added to labs is 2.1 Continue Cardizem CD100 milligrams daily with hold parameters Chronic medical issues: Dementia/schizophrenia: Continue donepezil B12 deficiency History of Present Illness Chief Complaint: The patient returns to the emergency department for the fourth day in a row, per staff at [facility], due to concerns regarding recurrent epistaxis as noted by guards from [facility] [facility]. The patient was initially seen at the emergency department on 12/07, after facial trauma, and was found to have multiple nasal bone fractures. He had a Rhino Rocket placed on 12/07. The Rhino Rocket was then replaced on 12/09, and hemoglobin at that time was 14. On 12/11, patient was seen in the emergency department again, for reported recurrent epistaxis, and this time hemoglobin had dropped to 11.9. Patient has been on clopidogrel for reported history of atrial fibrillation and unspecified dementia. The patient is a resident of the dementia pal at the [facility], and HPI and ROS are somewhat limited due to that history of dementia and schizophrenia. The patient has been presented to the [facility] to be observed over the evening, at the request of [facility], will have laboratories rechecked in the a.m., and if stable to be returned back in the a.m. The ultimate plan is for patient to follow-up with ENT when can be arranged. Primary Care Provider: [facility] The patient is a 84-year-old male resident of [facility] since 1983, and for the last several years has been a resident in the dementia pal there. Past medical history includes atrial fibrillation/unspecified dementia with unspecified severity with other behavioral disturbance, hypertension, schizophrenia, recurrent epistaxis, CHF, and intermittent diarrhea.The patient returns to the emergency department for the fourth day in a row, per staff at [facility], due to concerns regarding recurrent epistaxis as noted by guards from [facility] [facility]. The patient was initially seen at the emergency department on 12/07, after facial trauma, and was found to have multiple nasal bone fractures. He had a Rhino Rocket placed on 12/07. The Rhino Rocket was then replaced on 12/09, and hemoglobin at that time was 14. On 12/11, patient was seen in the emergency department again, for reported recurrent epistaxis, and this time hemoglobin had dropped to 11.9. Patient has been on clopidogrel for reported history of atrial fibrillation and unspecified dementia. The patient is a resident of the dementia pal at the [facility], and HPI and ROS are somewhat limited due to that history of dementia and schizophrenia. The patient has been presented to the [facility] to be observed over the evening, at the request of [facility], will have laboratories rechecked in the a.m., and if stable to be returned back in the a.m. The ultimate plan is for patient to fol low-up with ENT when can be arranged. Allergies Allergy/AdvReac Type Severity Reaction Status Date / Time No Known Allergies Allergy Verified 12/11/24 17:43 Home Medications Medication Instructions Recorded Confirmed Type clopidogrel 75 mg tablet 75 mg PO DAILY 12/27/22 12/11/24 History diltiazem HCl 180 mg 180 mg PO DAILY 12/27/22 12/11/24 History capsule,extended release 24 hr (Cardizem CD) donepezil 5 mg tablet 5 mg PO QAM 12/27/22 12/11/24 History furosemide 40 mg tablet 40 mg PO BID 12/27/22 12/11/24 History potassium chloride 20 mEq 20 meq PO BID 12/27/22 12/11/24 History tablet,extended release(part/cryst) Lactobacillus acidophilus 1 cap PO BID 12/11/24 12/11/24 History (Acidophilus capsule) cyanocobalamin (vitamin B-12) 1,000 mcg PO DAILY 12/11/24 12/11/24 History 1,000 mcg tablet (Vitamin B-12) donepezil 10 mg tablet 10 mg PO HS 12/11/24 12/11/24 History loperamide 2 mg tablet 4 mg PO TID PRN Diarrhea 12/11/24 12/11/24 History (Anti-Diarrheal (loperamide)) Past Med/Surg History Problem List (Updated 12/12/24 @ 04:21 by Chico Ulrich MD) Acute blood loss anemia (ABLA) Epistaxis (Acute) Acute anterior epistaxis (Acute) COVID-19 Encounter for pre-operative examination Schizophrenia Hypoxia (Acute) Microscopic hematuria Closed left hip fracture (Acute) Hypertension Atrial fibrillation (Acute) Unspecified dementia, unspecified severity, with other behavioral disturbance Medical History Severe alcohol use disorder Cataracts, bilateral Periodic headache syndrome Social History Smoking Status: Never smoker Do You Dip or Chew Tobacco: No; Hx Alcohol Use: No Hx Substance Use: No Preferred Language: Niuean Communication Ability: Effective Crosstie Inspector Required: No Beliefs That Will Affect Care: None Current Living Situation: Other Current Living Situation Comment: [facility] Other Information That Helps Us Care for You: No Feels Safe at Home: Yes Safety Concerns: Feels Safe At This Time Assistive Devices: Walker Review of Systems Review of Systems: The patient denies chest pain, palpitations, shortness of breath, dyspnea on exertion, cough, lower extremity swelling, sore throat, fevers, chills, sweats, weight change, fatigue, nausea, vomiting, diarrhea , constipation, abdominal pain, pelvic pain, blood in urine or stool, dysuria, urinary frequency or urgency, loss of consciousness, rash, abnormal bruising or bleeding, imbalance, focal or generalized weakness, numbness or tingling in arms or legs, generalized arthralgias or myalgias, back or neck pain, or night sweats. The review of systems is otherwise negative other than for that already noted above, and at least 10 systems have been reviewed. Physical Exam Physical Exam: the patient is awake, alert and oriented 3, well developed and well nourished, normocephalic and atraumatic, lying in bed and in no acute distress. HEENT--PERRL, EOMI, mucous membranes and oropharynx mildly dry. Neck--supple. No JVD. No bruits. Thyroid normal, trachea midline, no adenopathy. Heart--normal S1 and S2. No murmurs, rubs or gallops. Lungs--clear bilaterally, no respiratory distress, no accessory muscle use. Abdomen--normal bowel sounds and soft. Nontender. Nondistended, no hernias or masses, no organomegaly. Extremities-- No edema. There are good distal pulses b/l. Dermatologic--normal skin turgor, normal color, no abnormal lymph nodes, no rash. Neurologic--cranial nerves II through XII grossly intact. Rheumatologic--normal range of motion. Psychiatric--normal affect. Results & Data Results & Data Vital Signs (Past 12 Hours) Vital Signs Temp Pulse Pulse Resp BP BP Pulse Ox 12/11/24 21:27 74 12/11/24 21:00 95 H 24 110/75 97 12/11/24 19:00 84 15 120/74 98 12/11/24 18:59 77 12/11/24 17:37 82 16 117/76 94 12/11/24 17:37 95 12/11/24 17:00 36.0 C L 105 H 20 104/61 97 O2 Del Method 12/11/24 21:27 12/11/24 21:00 Room Air 12/11/24 19:00 Room Air 12/11/24 18:59 12/11/24 17:37 Room Air 12/11/24 17:37 12/11/24 17:00 Room Air Laboratory Results Laboratory Results WBC 8.07 K/ul (4.8-10.8) 12/11/24 17:34 RBC 3.76 M/uL (4.70-6.10) L 12/11/24 17:34 Hgb 11.9 g/dl (14.0-18.0) L 12/11/24 17:34 Hct 35.5 % (42.0-52.0) L 12/11/24 17:34 MCV 94.4 fL (80.0-100.0) 12/11/24 17:34 MCH 31.6 pg (25.0-34.0) 12/11/24 17:34 MCHC 33.5 g/dL (32.0-36.0) 12/11/24 17:34 RDW Std Deviation 44.9 fL (36.4-46.3) 12/11/24 17:34 RDW Coeff of Sammy 13.1 % (11.5-14.5) 12/11/24 17:34 Plt Count 147 K/uL (130-400) 12/11/24 17:34 MPV 14.1 fL (9.4-12.4) H 12/11/24 17:34 Immature Gran % (Auto) 0.2 % 12/11/24 17:34 Neut % (Auto) 82.2 % 12/11/24 17:34 Lymph % (Auto) 12.0 % 12/11/24 17:34 [place] % (Auto) 5.0 % 12/11/24 17:34 Eos % (Auto) 0.0 % 12/11/24 17:34 Baso % (Auto) 0.6 % 12/11/24 17:34 Neut # (Auto) 6.63 K/uL (1.40-6.50) H 12/11/24 17:34 Lymph # (Auto) 0.97 K/uL (1.20-3.40) L 12/11/24 17:34 [place] # (Auto) 0.40 K/uL (0.11-0.59) 12/11/24 17:34 Eos # (Auto) 0.00 K/uL (0.00-0.50) 12/11/24 17:34 Baso # (Auto) 0.05 K/uL (0.00-0.20) 12/11/24 17:34 Immature Gran # (Auto) 0.02 K/uL (0.01-0.20) 12/11/24 17:34 PT 11.9 Seconds (9.0-12.0) 12/11/24 19:06 INR 1.1 (0.9-1.1) 12/11/24 19:06 APTT 27 Seconds (21-31) 12/11/24 19:06 PTT Ratio 1.0 12/11/24 19:06 Sodium 140 mmol/L (136-145) 12/11/24 17:34 Potassium 3.7 mmol/L (3.5-5.1) 12/11/24 17:34 Chloride 105 mmol/L (98-107) 12/11/24 17:34 Carbon Dioxide 27 mmol/L (21-32) 12/11/24 17:34 Anion Gap 8 (3-11) 12/11/24 17:34 BUN 43 mg/dl (6-23) H 12/11/24 17:34 Creatinine 1.27 mg/dl (0.6-1.4) 12/11/24 17:34 Est Cr Clr Drug Dosing Not Reportable 12/11/24 17:34 eGFR 55.71 12/11/24 17:34 BUN/Creatinine Ratio 33.9 (10-20) H 12/11/24 17:34 Glucose 108 mg/dl (70-99(Fasting)) H 12/11/24 17:34 Calcium 9.5 mg/dl (8.6-10.3) 12/11/24 17:34 Magnesium 2.1 mg/dl (1.7-2.4) 12/11/24 17:34 Total Bilirubin 1.4 mg/dl (0.2-1.0) H 12/11/24 17:34 AST 16 U/L (13-39) 12/11/24 17:34 ALT 12 U/L (7-52) 12/11/24 17:34 Alkaline Phosphatase 36 U/L (34-104) 12/11/24 17:34 Total Protein 6.2 gm/dl (6.0-8.3) 12/11/24 17:34 Albumin 4.1 gm/dl (3.4-5.0) 12/11/24 17:34 Globulin 2.1 gm/dl (2.5-4.0) L 12/11/24 17:34 Albumin/Globulin Ratio 2.0 (0.9-2) 12/11/24 17:34 Nasal Screen MRSA (PCR) Negative (Negative) 12/11/24 Unknown Code Status & VTE Plan Code Status Full code VTE Prophylaxis Plan VTE Prophylaxis will be ordered: Yes PG Care Time/CCT Total # of Minutes Spent Total Time Spent with Patient: Total time spent is greater than 50% in coordination of care (as documented) at patient's floor/unit and/or counseling patient: Coding Level of Care Code 48240 INT INP/OBS CARE 3/75MIN Diagnoses Acute anterior epistaxis R04.0 Schizophrenia F20.9 Hypertension I10 Atrial fibrillation I48.91 Unspecified dementia, unspecified severity, with other behavioral disturbance F03.918 Acute blood loss anemia (ABLA) D62
[2024-12-11] MEDS: POTASSIUM CHLORIDE CRTAB 20 MEQ TABCR PO STA (22:20)
[2024-12-11] MEDS: NSS + 20MEQ KCL 20 MEQ/1,000 ML BAG IV SCH (22:22)
[2024-12-11 22:25] LABS: Magnesium 2.1 mg/dl (1.7-2.4)
[2024-12-11] MEDS ORDERED: ACETAMINOPHEN 325 MG TAB PO PRN (23:10)
[2024-12-12 06:09] LABS: Basophils # (auto) 0.06 K/uL (0.00-0.20); Basophils % (auto) 0.8 %; Eosinophils # (auto) 0.07 K/uL (0.00-0.50); Hematocrit (blood only) 34.7 % (42.0-52.0); Hemoglobin 11.6 g/dl (14.0-18.0); Immature Granulocytes # (auto) 0.02 K/uL (0.01-0.20); Immature Granulocytes % (auto) 0.3 %; Lymphocytes # (auto) 1.19 K/uL (1.20-3.40); Lymphocytes % (auto) 16.3 %; Mean Corpuscular Hgb Conc 33.4 g/dL (32.0-36.0); Mean Corpuscular Volume 95.9 fL (80.0-100.0); Mean Platelet Volume 14.1 fL (9.4-12.4); Monocytes # (auto) 0.62 K/uL (0.11-0.59); Monocytes % (auto) 8.5 %; Neutrophils # (auto) 5.36 K/uL (1.40-6.50); Neutrophils % (auto) 73.1 %; Platelet Count 131 K/uL (130-400); RDW Coefficient of Variation 13.3 % (11.5-14.5); RDW Standard Deviation 46.8 fL (36.4-46.3); Red Blood Count 3.62 M/uL (4.70-6.10); White Blood Count 7.32 K/ul (4.8-10.8)
[2024-12-12 06:22] LABS: Albumin Globulin Ratio 1.7 (0.9-2); Albumin Level 3.9 gm/dl (3.4-5.0); BUN Creatinine Ratio 31.9 (10-20); Bilirubin,Total 1.6 mg/dl (0.2-1.0); Calcium 9.1 mg/dl (8.6-10.3); Creatinine Clr Calc Pharmacy 49.8 ml/min; Globulin 2.3 gm/dl (2.5-4.0); Magnesium 2.1 mg/dl (1.7-2.4); Potassium 3.7 mmol/L (3.5-5.1); Total Protein 6.2 gm/dl (6.0-8.3)
[2024-12-12 08:33] VITALS: TEMP 98.4
[2024-12-12] MEDS: CYANOCOBALAMIN (B-12) 500 MCG TABLET PO SCH (09:15)
[2024-12-12] MEDS: AMOXICILLIN/CLAVULANATE 875 MG TAB PO SCH (09:15)
[2024-12-12] MEDS: ADVANCED PROBIOTIC 625 MG CAPSULE PO SCH (09:16)
[2024-12-12] MEDS: dilTIAZem HCL 180 MG CAPCR PO SCH (09:16)
[2024-12-12] MEDS: DONEPEZIL HCL 5 MG TAB PO SCH (09:16)
[2024-12-12] MEDS: POTASSIUM CHLORIDE CRTAB 20 MEQ TABCR PO SCH (09:24)
--- NOTE | 2024-12-12 11:29 | Discharge Summary ---
Discharge Summary Date of Service December 12, 2024 Principal Dx & Hospital Course #1 = Principal Diagnosis (1) Acute anterior epistaxis: (2) Schizophrenia: (3) Hypertension: (4) Atrial fibrillation: (5) Unspecified dementia, unspecified severity, with other behavioral disturbance: (6) Acute blood loss anemia (ABLA): Admission HPI Per Admitting Provider The patient is a 84-year-old male resident of [facility] since 1983, and for the last several years has been a resident in the dementia pal there. Past medical history includes atrial fibrillation/unspecified dementia with unspecified severity with other behavioral disturbance, hypertension, schizophrenia, recurrent epistaxis, CHF, and intermittent diarrhea.The patient returns to the emergency department for the fourth day in a row, per staff at [facility], due to concerns regarding recurrent epistaxis as noted by guards from [facility]. The patient was initially seen at the emergency department on 12/07, after facial trauma, and was found to have multiple nasal bone fractures. He had a Rhino Rocket placed on 12/07. The Rhino Rocket was then replaced on 12/09, and hemoglobin at that time was 14. On 12/11, patient was seen in the emergency department again, for reported recurrent epistaxis, and this time hemoglobin had dropped to 11.9. Patient has been on clopidogrel for reported history of atrial fibrillation and unspecified dementia. The patient is a resident of the [facility], and HPI and ROS are somewhat limited due to that history of dementia and schizophrenia. [facility], at the request of [facility], will have laboratories rechecked in the a.m., and if stable to be returned back in the a.m. The ultimate plan is for patient to follow-up with ENT when can be arranged. Discharge Plan Discharge Items [facility] Disposition[facility] Reason For Visit: EPISTAXIS, ANEMIA, PVC'S Discharge Diagnosis: 1. right-sided epistaxis - improved, s/p silver nitrate cautery; no recurrent bleeding since 2. mild acute blood loss anemia 2nd to #1; discharge hemoglobin 11.6 3. likely permanent atrial fibrillation - controlled while on monitors 4. dementia 5. schizophrenia 6. nasal bone fractures 10/16/24 Condition on Discharge: Good Activity: Resume your previous activity Non-emergency contact: Primary Care Provider and Surgeon Call non-emergency contact if: you have any medication questions and your symptoms worsen Follow-up/Referrals: Gomez Gonzalez DO [Physician] - (1-2 weeks for recheck of epistaxis ) Julio GOLD [Primary Care Provider] - Diet: Regular Addtl Attending Provider Instructions: 1. bactroban ointment - apply in both nostrils TID x 7 days 2. nasal saline spray - 2 sprays each nostril QID x 7 days 3. AVOID aspirin, motrin, ibuprofen, naprosyn, aleve 4. HOLD plavix for at least 1 week 5. avoid forceful nose blowing 6. ENT follow-up in [address] Gomez Gonzalez or other local ENT for recheck 7. Augmentin 875mg twice daily with meals x 3 days then stop 8. consider daily probiotic supplement for 5-7 days Pending Studies at Discharge: No Stand-Alone Forms: My [facility] Skilled Items Patient informed of condition?: Yes Discharge Level of Care: Other Communicable Disease: No Discharge Prognosis: Stable Lines: None Urinary Catheter: No Medications and DC Order Prescriptions: New amoxicillin-pot clavulanate 875-125 mg Tablet 1 tab PO BIDM 3 Days Qty: 6 0RF mupirocin 2 % ointment 1 applic topical TID 7 Days Qty: 22 1RF Rx Instructions: apply in both nostrils Saline Nasal 0.65 % aerosol,spray 2 spray intranasal QID 7 Days Qty: 44 1RF Rx Instructions: apply in both nostrils Continued furosemide 40 mg Tablet 40 mg PO BID donepezil 5 mg Tablet 5 mg PO QAM diltiazem HCl [Cardizem CD] 180 mg Capsule,Extended Release 24hr 180 mg PO DAILY potassium chloride 20 mEq Tablet,Er Particles/Crystals 20 meq PO BID donepezil 10 mg Tablet 10 mg PO HS Acidophilus Capsule 1 cap PO BID cyanocobalamin (vitamin B-12) [Vitamin B-12] 1,000 mcg Tablet 1,000 mcg PO DAILY loperamide [Anti-Diarrheal (loperamide)] 2 mg Tablet 4 mg PO TID PRN (Reason: Diarrhea) Held clopidogrel 75 mg Tablet 75 mg PO DAILY Hold Instructions: hold for at least 1 week Discharge Orders: Discharge Order (Routine); Ordered 12/12/24 Ordered By: Lakhwinder Elam Admission Data Admit Date/Time: 12/11/24 22:17 Attending Provider: Lakhwinder Elam Admit Provider: Chico Ulrich Primary Care Provider: Julio GOLD Other Providers: Chico Ulrich Hospital Stay Data Consultations 12/11/24 21:14 ED Decision to Admit Stat Pending Results Patient Have Any Pending Studies at Discharge: No Discharge Instructions Given to Patient (Per Discharging Provider) 1. bactroban ointment - apply in both nostrils TID x 7 days 2. nasal saline spray - 2 sprays each nostril QID x 7 days 3. AVOID aspirin, motrin, ibuprofen, naprosyn, aleve 4. HOLD plavix for at least 1 week 5. avoid forceful nose blowing 6. ENT follow-up in [address] Gomez Gonzalez or other local ENT for recheck 7. Augmentin 875mg twice daily with meals x 3 days then stop 8. consider daily probiotic supplement for 5-7 days Coding Diagnoses Acute anterior epistaxis R04.0 Schizophrenia F20.9 Hypertension I10 Atrial fibrillation I48.91 Unspecified dementia, unspecified severity, with other behavioral disturbance F03.918 Acute blood loss anemia (ABLA) D62
[2024-12-12 12:18] VITALS: BP 131/65; PULSE 69; RESP 20; O2SAT 95
[2024-12-12] MEDS ORDERED: SODIUM CHLORIDE 0.65% NA SOLN 45 ML (OCEAN) SCH (13:00)
[2024-12-12] MEDS ORDERED: DONEPEZIL HCL 10 MG TAB PO SCH (21:00)
== END 2024-12-12 13:20 ==
LOC: ED 16:56 → SUATTDRO 22:17 → 4W 22:17 → INTOOBSV 22:17 → 4W 22:56
DX: I48.91 Unspecified atrial fibrillation; Z79.899 Other long term (current) drug therapy; D62 Acute posthemorrhagic anemia; Z86.16 Personal history of COVID-19; Z79.02 Long term (current) use of antithrombotics/antiplatelets; R04.0 Epistaxis; F03.90 Unspecified dementia, unspecified severity, without behavioral disturbance, psychotic disturbance, mood disturbance, and anxiety

== ENCOUNTER 2025-01-07 08:10 | Inpatient (IN) ==
--- NOTE | 2025-01-07 08:45 | Emergency Department Note ---
Impression & Plan Small bowel obstruction ADMIT ED Provider Note HPI: History obtained from long-term staff at the bedside. The patient is a 84-year-old gentleman with reported history of dementia, schizophrenia, presents the emergency department with "swelling" in his scrotum. Patient is unable to provide me with any history, long-term guards at the bedside states that they are unaware of any history and states that they were told to bring the patient to the ER for swelling in his scrotum. On my initial assessment here in the ED the patient appears to be in no acute distress, he appears to have an extremely large inguinal hernia that has settled in his scrotum. His abdomen is soft and nontender on arrival. Patient is otherwise hemodynamically stable on arrival. ROS: - Per HPI Differential Diagnosis: Incarcerated inguinal hernia, scrotal cellulitis, small bowel obstruction, testicular cancer/mass, amongst other potential pathologies. *Outpatient medications and allergy history reviewed. PE: General: Alert, frail-appearing, no acute distress HEENT: Normocephalic, trachea midline Eyes: Extraocular eye movement is intact, no scleral erythema Pulmonary: Clear to auscultation bilaterally, no wheezing Cardio: Regular rate and rhythm GI: Abdomen is soft to palpation, there is some apparent tenderness in the lower abdomen, there is no guarding or rigidity : Extremely large mass within the scrotum consistent with likely hernia, minimal overlying erythema, there is no crepitus to palpation in the surrounding soft tissues or scrotum, there is no other discoloration or exquisite firmness to palpation of the mass/hernia, no suprapubic tenderness MSK: No evidence of trauma or malformation of the extremities, no edema Skin: No evidence of rash Neuro: Alert, no focal deficits Psychiatric: Cooperative INDEPENDENT 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 Patient does have some tenderness to palpation in the area of the scrotum as well as the mid abdomen without any guarding or rigidity. I cannot reduce the hernia at the bedside. I did discuss the patient's presentation with the on-call physician at [facility], [place], Dr. Elaine, he tells me that the patient has a hernia in that area that is known however it just grew in size acutely over the past several days. While here in the ED the patient did have an episode of vomiting, lab work shows a leukocytosis of 14.5, hemoglobin is normal, platelet count is normal, CMP does not show any evidence of any critical findings, creatinine is increased from previous today to 2.08, baseline appears to be normal. Patient was given IV fluids here in the ED. CT imaging of the abdomen and pelvis without contrast was obtained and does show evidence of a large inguinal hernia into the scrotum with evidence of small bowel obstruction and possibly closed-loop obstruction. I did discuss these findings with on-call general surgery, Dr. Silvestre Ellis, and the patient was evaluated at the bedside. Following general surgery evaluation they requested admission to the medicine service and they will plan to operate on the patient. Case was then discussed with the on-call hospitalist, Dr. Alex, the patient was placed for admission in stable condition. NG tube was deferred prior to admission secondary to the patient's dementia and schizophrenia. He did have to be placed in nonviolent restraints while here in the ED as he was attempting to remove lines. Consultants/Discussions held with other healthcare providers: -General Surgery, Dr. Ellis -Hospitalist, Dr. Alex Disposition discussion held by myself with: -Patient and long-term staff at the bedside Diagnosis: 1. Small bowel obstruction, acute 2. Inguinal hernia, acute 3. Acute kidney injury Disposition: Admission Ruslan Polanco DO Emergency Medicine Past Med/Surg History Problem List (Updated 01/07/25 @ 15:34 by Ruslan Polanco DO) Acute kidney injury Atrial fibrillation with RVR Small bowel obstruction (Acute) Incarcerated left inguinal hernia Nasal bone fractures Acute blood loss anemia (ABLA) Acute anterior epistaxis (Acute) COVID-19 Encounter for pre-operative examination Schizophrenia Hypoxia (Acute) Microscopic hematuria Closed left hip fracture (Acute) Hypertension Atrial fibrillation (Acute) Unspecified dementia, unspecified severity, with other behavioral disturbance Medical History Severe alcohol use disorder Cataracts, bilateral Periodic headache syndrome Social History Smoking Status: Unknown if ever smoked Do You Dip or Chew Tobacco: No; Hx Alcohol Use: No Hx Substance Use: No Preferred Language: Lao Communication Ability: Impaired Financial Aid Manager Required: No Beliefs That Will Affect Care: None Current Living Situation: Other Current Living Situation Comment: [facility] Feels Safe at Home: Yes Assistive Devices: None Allergies Allergies Allergy/AdvReac Type Severity Reaction Status Date / Time No Known Allergies Allergy Verified 01/07/25 11:38 Home Meds Home Medications Medication Instructions Recorded Confirmed diltiazem HCl 180 mg 180 mg PO DAILY 12/27/22 01/07/25 capsule,extended release 24 hr (Cardizem CD) donepezil 5 mg tablet 5 mg PO QAM 12/27/22 01/07/25 furosemide 40 mg tablet 40 mg PO BID 12/27/22 01/07/25 potassium chloride 20 mEq 20 meq PO BID 12/27/22 01/07/25 tablet,extended release(part/cryst) cyanocobalamin (vitamin B-12) 1,000 mcg PO DAILY 12/11/24 01/07/25 1,000 mcg tablet (Vitamin B-12) donepezil 10 mg tablet 10 mg PO HS 12/11/24 01/07/25 loperamide 2 mg tablet 4 mg PO TID PRN Diarrhea 12/11/24 01/07/25 (Anti-Diarrheal (loperamide)) Results & Data (ED) Vital Signs Vital Signs - 24 hr 01/07/25 08:20 01/07/25 08:42 01/07/25 09:08 Temperature 37.0 C Temperature Source Temporal Artery Scan Pulse Rate 92 H 128 H Pulse Rate [Finger] Respiratory Rate 17 Respiratory Effort / Characteristics Non-Labored Spontaneous Respiratory Depth Normal Respiratory Pattern Blood Pressure 127/119 H Blood Pressure [Left Arm] Blood Pressure Mean 121 Blood Pressure Mean [Left Arm] Blood Pressure Position [Left Arm] Pulse Oximetry 97 95 Oxygen Delivery Method Room Air Room Air Oxygen Flow Rate Sepsis Recent Fever Within 48 Hours No Sepsis New/Unexplained Change in Mental Status N/A Sepsis Action Taken by Nursing No Action Required 01/07/25 09:09 01/07/25 09:36 01/07/25 09:54 Temperature Temperature Source Pulse Rate 122 H 122 H 135 H Pulse Rate [Finger] Respiratory Rate 32 H 20 21 Respiratory Effort / Characteristics Respiratory Depth Respiratory Pattern Blood Pressure Blood Pressure [Left Arm] Blood Pressure Mean Blood Pressure Mean [Left Arm] Blood Pressure Position [Left Arm] Pulse Oximetry Oxygen Delivery Method Oxygen Flow Rate Sepsis Recent Fever Within 48 Hours Sepsis New/Unexplained Change in Mental Status Sepsis Action Taken by Nursing 01/07/25 10:10 01/07/25 10:15 01/07/25 10:42 Temperature Temperature Source Pulse Rate 137 H 124 H Pulse Rate [Finger] Respiratory Rate 22 21 Respiratory Effort / Characteristics Respiratory Depth Respiratory Pattern Blood Pressure 124/89 Blood Pressure [Left Arm] Blood Pressure Mean 104 Blood Pressure Mean [Left Arm] Blood Pressure Position [Left Arm] Pulse Oximetry 96 Oxygen Delivery Method Room Air Oxygen Flow Rate Sepsis Recent Fever Within 48 Hours Sepsis New/Unexplained Change in Mental Status Sepsis Action Taken by Nursing 01/07/25 11:33 01/07/25 12:06 01/07/25 12:49 Temperature 36.9 C Temperature Source Oral Pulse Rate 91 H Pulse Rate [Finger] 91 H Respiratory Rate 22 16 Respiratory Effort / Characteristics Non-Labored Spontaneous Respiratory Depth Normal Respiratory Pattern Regular Blood Pressure Blood Pressure [Left Arm] 148/89 H Blood Pressure Mean Blood Pressure Mean [Left Arm] 108 Blood Pressure Position [Left Arm] Semi-fowlers Pulse Oximetry 100 Oxygen Delivery Method Nasal Cannula Nasal Cannula Oxygen Flow Rate 2 2 Sepsis Recent Fever Within 48 Hours Sepsis New/Unexplained Change in Mental Status Sepsis Action Taken by Nursing Laboratory Data 01/07/25 08:51 01/07/25 08:51 Lab Results 01/07/25 01/07/25 Range/Units 08:51 09:22 WBC 14.51 H (4.8-10.8) K/ul RBC 4.97 (4.70-6.10) M/uL Hgb 16.1 (14.0-18.0) g/dl Hct 47.3 (42.0-52.0) % MCV 95.2 (80.0-100.0) fL MCH 32.4 (25.0-34.0) pg MCHC 34.0 (32.0-36.0) g/dL RDW Std Deviation 49.4 H (36.4-46.3) fL RDW Coeff of Sammy 14.3 (11.5-14.5) % Plt Count 194 (130-400) K/uL MPV 13.1 H (9.4-12.4) fL Immature Gran % (Auto) 0.6 % Neut % (Auto) 89.1 % Lymph % (Auto) 3.7 % Forrest % (Auto) 6.4 % Eos % (Auto) 0.1 % Baso % (Auto) 0.1 % Neut # (Auto) 12.94 H (1.40-6.50) K/uL Lymph # (Auto) 0.54 L (1.20-3.40) K/uL Forrest # (Auto) 0.93 H (0.11-0.59) K/uL Eos # (Auto) 0.01 (0.00-0.50) K/uL Baso # (Auto) 0.01 (0.00-0.20) K/uL Immature Gran # (Auto) 0.08 (0.01-0.20) K/uL PT Cancelled 12.1 H INR Cancelled 1.1 Sodium 142 (136-145) mmol/L Potassium 3.9 (3.5-5.1) mmol/L Chloride 97 L (98-107) mmol/L Carbon Dioxide 30 (21-32) mmol/L Anion Gap 15 H (3-11) BUN 42 H (6-23) mg/dl Creatinine 2.08 H (0.6-1.4) mg/dl Est Cr Clr Drug Dosing 25.6 ml/min eGFR 30.82 BUN/Creatinine Ratio 20.2 H (10-20) Glucose 140 H (70-99(Fasting)) mg/dl Calcium 10.9 H (8.6-10.3) mg/dl Total Bilirubin 2.8 H (0.2-1.0) mg/dl AST 23 (13-39) U/L ALT 16 (7-52) U/L Alkaline Phosphatase 71 (34-104) U/L Total Protein 8.1 (6.0-8.3) gm/dl Albumin 4.8 (3.4-5.0) gm/dl Globulin 3.3 (2.5-4.0) gm/dl Albumin/Globulin Ratio 1.5 (0.9-2) Lipase 13 (11-82) U/L Administered Medications Discontinued Medications Sodium Chloride (Nss) 1,000 mls @ 999 mls/hr IV .Q1H1M ONE Stop: 01/07/25 10:48 Last Infusion: 01/07/25 11:23 Dose: Infused Documented By: Admin: 01/07/25 10:16 Dose: 999 mls/hr Documented By: KARLIE Sodium Chloride (Nss) 1,000 mls @ 999 mls/hr IV .Q1H1M ONE Stop: 01/07/25 11:37 Last Admin: 01/07/25 10:47 Dose: 999 mls/hr Documented By: KARLIE Cefoxitin Sodium 2,000 mg/ (Dextrose) 50 mls @ 100 mls/hr IV PREOP BRIANNA; Protocol Stop: 01/07/25 12:44 Last Admin: 01/07/25 14:10 Dose: 100 mls/hr Documented By: [id number] Morphine Sulfate (Morphine Sulfate 4 Mg/Ml 1 Ml Carp\\Vial) Confirm Administered Dose 4 mg .ROUTE .STK-MED ONE Stop: 01/07/25 11:30 Last Admin: 01/07/25 11:31 Dose: 4 mg Documented By: KARLIE Ondansetron HCl (Ondansetron Inj 2 Mg/Ml 2 Ml Vial) 4 mg IV NOW STA Stop: 01/07/25 10:38 Last Admin: 01/07/25 10:47 Dose: 4 mg Documented By: KARLIE Imaging Data Radiologist's Impression: Abdomen/Pelvis CT 01/07/25 09:48 CT OF THE ABDOMEN AND PELVIS WITHOUT CONTRAST CLINICAL HISTORY: Hernia. Abdominal pain. COMPARISON STUDY: CT of the abdomen and pelvis May 02, 2024. TECHNIQUE: Axial images of the abdomen and pelvis were obtained without IV contrast. Images were reviewed in the axial, sagittal, and coronal planes. Automated exposure control was utilized for the study. A dose lowering technique was utilized adhering to the principles of ALARA. FINDINGS: Visualized portions of the lung bases are unremarkable. No pneumatosis, free air or portal venous gas is present. Evaluation of the abdomen and pelvis is suboptimal on this unenhanced exam. There are gallstones within the gallbladder. No evidence for acute cholecystitis. Several hypodense hepatic lesions are unchanged since CT of May 02, 2024. These measure up to 1.3 cm per there is no biliary or pancreatic ductal dilatation. There is no hydronephrosis. Unenhanced images of the spleen, adrenal glands, kidneys and pancreas are unremarkable. Bilateral hip arthroplasties are incidentally noted. A large left inguinal hernia is again noted. This contains the sigmoid colon and multiple loops of small bowel. The proximal small bowel, proximal to the hernia is moderately dilated and fluid-filled, measuring up to 4.4 cm in caliber. The stomach is also markedly distended with air-fluid level. Transition point within the left lower quadrant, at the superior aspect of the hernia on image 263 is noted. Multiple loops of dilated fluid-filled small bowel within the hernia sac are present. There is associated mesenteric stranding. There is a small amount of ascites within the hernia sac, within the left hemiscrotum. No fluid collections are present. Images of the pelvis are degraded by streak artifact from bilateral hip arthroplasties. IMPRESSION: Findings consistent with a high-grade small bowel obstruction related to a large left inguinal hernia which contains multiple small bowel loops and the sigmoid colon. The small bowel and stomach proximal to the hernia are fluid-filled and dilated. Distal small bowel decompressed. Multiple dilated fluid filled loops within the left hemiscrotum. Therefore, a closed loop obstruction within the hernia sac cannot be excluded. Associated mesenteric stranding and a small amount of ascites. The findings suggest an incarcerated and possibly strangulated hernia. Surgical consultation is recommended. ACT 112: Negative or not required by law. Electronically signed by: Eliseo Wilson M.D. 01/07/2025 10:28 AM Discharge Plan Visit Data Chief Complaint: Swelling/Edema to Extremity Stated Complaint: SCROTAL EDEMA ED Provider: Ruslan Polanco Discharge Problem: Small bowel obstruction Patient Disposition: Admitted As Inpatient Discharge Instructions Interventions: ED Discharge Assessment Last Done: 01/07/25 12:01 Forms Stand Alone Forms: My [facility] Prescriptions Prescriptions: No Action furosemide 40 mg Tablet 40 mg PO BID donepezil 5 mg Tablet 5 mg PO QAM diltiazem HCl [Cardizem CD] 180 mg Capsule,Extended Release 24hr 180 mg PO DAILY potassium chloride 20 mEq Tablet,Er Particles/Crystals 20 meq PO BID donepezil 10 mg Tablet 10 mg PO HS cyanocobalamin (vitamin B-12) [Vitamin B-12] 1,000 mcg Tablet 1,000 mcg PO DAILY loperamide [Anti-Diarrheal (loperamide)] 2 mg Tablet 4 mg PO TID PRN (Reason: Diarrhea) Referrals Referrals: Julio GOLD [Primary Care Provider] -
[2025-01-07 09:16] LABS: Basophils # (auto) 0.01 K/uL (0.00-0.20); Basophils % (auto) 0.1 %; Eosinophils # (auto) 0.01 K/uL (0.00-0.50); Eosinophils % (auto) 0.1 %; Hematocrit (blood only) 47.3 % (42.0-52.0); Hemoglobin 16.1 g/dl (14.0-18.0); Immature Granulocytes # (auto) 0.08 K/uL (0.01-0.20); Immature Granulocytes % (auto) 0.6 %; Lymphocytes # (auto) 0.54 K/uL (1.20-3.40); Lymphocytes % (auto) 3.7 %; Mean Corpuscular Hemoglobin 32.4 pg (25.0-34.0); Mean Corpuscular Volume 95.2 fL (80.0-100.0); Mean Platelet Volume 13.1 fL (9.4-12.4); Monocytes # (auto) 0.93 K/uL (0.11-0.59); Monocytes % (auto) 6.4 %; Neutrophils # (auto) 12.94 K/uL (1.40-6.50); Neutrophils % (auto) 89.1 %; Platelet Count 194 K/uL (130-400); RDW Coefficient of Variation 14.3 % (11.5-14.5); RDW Standard Deviation 49.4 fL (36.4-46.3); Red Blood Count 4.97 M/uL (4.70-6.10); White Blood Count 14.51 K/ul (4.8-10.8)
[2025-01-07 09:26] LABS: Albumin Globulin Ratio 1.5 (0.9-2); Albumin Level 4.8 gm/dl (3.4-5.0); BUN Creatinine Ratio 20.2 (10-20); Bilirubin,Total 2.8 mg/dl (0.2-1.0); Calcium 10.9 mg/dl (8.6-10.3); Creatinine Clr Calc Pharmacy 25.6 ml/min; Globulin 3.3 gm/dl (2.5-4.0); Potassium 3.9 mmol/L (3.5-5.1); Total Protein 8.1 gm/dl (6.0-8.3)
[2025-01-07 10:06] LABS: INR 1.1 (0.9-1.1); Prothrombin Time 12.1 Seconds (9.0-12.0)
[2025-01-07] MEDS: SODIUM CHLORIDE 0.9% 1,000 ML IV ONE ×2 (10:16→10:47)
--- NOTE | 2025-01-07 10:29 | CT Scan Report ---
CT OF THE ABDOMEN AND PELVIS WITHOUT CONTRAST CLINICAL HISTORY: Hernia. Abdominal pain. COMPARISON STUDY: CT of the abdomen and pelvis May 02, 2024. TECHNIQUE: Axial images of the abdomen and pelvis were obtained without IV contrast. Images were revi ewed in the axial, sagittal, and coronal planes. Automated exposure control was utilized for the maria elena dy. A dose lowering technique was utilized adhering to the principles of ALARA. FINDINGS: Visualized portions of the lung bases are unremarkable. No pneumatosis, free air or portal venous gas is present. Evaluation of the abdomen and pelvis is suboptimal on this unenhanced exam. Th ere are gallstones within the gallbladder. No evidence for acute cholecystitis. Several hypodense hep atic lesions are unchanged since CT of May 02, 2024. These measure up to 1.3 cm per there is no bilia ry or pancreatic ductal dilatation. There is no hydronephrosis. Unenhanced images of the spleen, adre nal glands, kidneys and pancreas are unremarkable. Bilateral hip arthroplasties are incidentally note d. A large left inguinal hernia is again noted. This contains the sigmoid colon and multiple loops of small bowel. The proximal small bowel, proximal to the hernia is moderately dilated and fluid-filled , measuring up to 4.4 cm in caliber. The stomach is also markedly distended with air-fluid level. Tra nsition point within the left lower quadrant, at the superior aspect of the hernia on image 263 is no luke. Multiple loops of dilated fluid-filled small bowel within the hernia sac are present. There is a ssociated mesenteric stranding. There is a small amount of ascites within the hernia sac, within the left hemiscrotum. No fluid collections are present. Images of the pelvis are degraded by streak artif act from bilateral hip arthroplasties. IMPRESSION: Findings consistent with a high-grade small bowel obstruction related to a large left in guinal hernia which contains multiple small bowel loops and the sigmoid colon. The small bowel and st omach proximal to the hernia are fluid-filled and dilated. Distal small bowel decompressed. Multiple dilated fluid filled loops within the left hemiscrotum. Therefore, a closed loop obstruction within t he hernia sac cannot be excluded. Associated mesenteric stranding and a small amount of ascites. The findings suggest an incarcerated and possibly strangulated hernia. Surgical consultation is recommend ed. ACT 112: Negative or not required by law. Electronically signed by: Eliseo Wilson M.D. 01/07/2025 10:28 AM
[2025-01-07] MEDS: ONDANSETRON INJ 2 MG/ML 2 ML VIAL IV STA (10:47)
[2025-01-07] MEDS: MoRPHine SULFATE 4 MG/ML 1 ML CARP\\VIAL ONE (11:31)
--- NOTE | 2025-01-07 11:35 | History & Physical Report ---
Date of Service January 07, 2025 Assessment & Plan (1) Small bowel obstruction: (2) Atrial fibrillation with RVR: (3) Acute kidney injury: Plan Tyler is an 84-year-old male with PMH of unspecified dementia, schizophrenia, HTN, atrial fibrillation, and inguinal hernia. He presented from [facility] on 01/07 due to swelling of his left inguinal hernia x 3 days. Patient is a poor historian at baseline due to his underlying dementia. Correctional officers at bedside report he is around his cognitive baseline today. While he notes no pain at this time, he was complaining of severe lower/middle abdominal pain prior to coming into the hospital. Correctional officers also report an episode of vomiting while in the ED. #Small bowel obstruction A/P CT on arrival revealed high-grade SBO related to large left inguinal hernia Strict n.p.o. for now General Surgery consult appreciated Will plan to take patient to the OR on 01/07 IV acetaminophen and morphine as needed for pain control IV antiemetics as needed #Atrial fibrillation with RVR Patient is not currently on blood thinners Hold diltiazem and chemical PPx prior to surgery Would not anticoagulation until>12h out from operation, pending surgical eval #Acute kidney injury BUN 42, creatinine 2.08 (baseline 1.13) Avoid nephrotoxic agents for possible Hold Lasix/potassium supplementation NSS 2000 mL IV given in the ED Continue gentle IVF maintenance while n.p.o. Trend BMP #Leukocytosis Leukocytosis at 14.51 on arrival; afebrile ? Stress demargination in the setting of SBO Clinically, patient denies infectious symptoms, but is not the best historian Trend CBC #Dementia Hold donepezil for now #HTN Hold diltiazem for now Disposition: Admit to PCU telemetry Full code Strict n.p.o. VTE PPx: SCDs History of Present Illness Chief Complaint: Extremity swelling Primary Care Provider: [facility] Tyler is an 84-year-old male with PMH of unspecified dementia, schizophrenia, HTN, atrial fibrillation, and inguinal hernia. He presented from [facility] on 01/07 due to swelling of his left inguinal hernia x 3 days. Patient is a poor historian at baseline due to his underlying dementia. Correctional officers at bedside report he is around his cognitive baseline today. While he notes no pain at this time, he was complaining of severe lower/middle abdominal pain prior to coming into the hospital. Correctional officers also report that he had an episode of vomiting while in the emergency department. Patient reports that this hernia swelling has been worsening over the past 3 days. He reports no pain at time of admission. He is not oriented to name, month, year, location, or purpose in the hospital. He is oriented to his . Correctional officers at bedside believe he did not take his regular morning medicine today, and might have thrown up anything that was given. Patient denies smoking or history of smoking. Patient is tachycardic at 124 bpm at time of admission; vitals otherwise stable. ED course: NSS 1000 L IV x 2 Zofran 4 mg IV Morphine sulfate 4 mg IV Difficult to obtain ROS due to patient's underlying dementia and recent morphine administration; however: Patient denies fever, chills, night sweats, dizziness, lightheadedness, headache, chest pain, chest palpitations, SOB, cough, abdominal pain, N/V/D, pain at the hernia site, or changes in urinary bowel habits. Attempted to call [facility] for additional details regarding patient's medication this morning/CODE STATUS, but was unable to reach. Allergies Allergy/AdvReac Type Severity Reaction Status Date / Time No Known Allergies Allergy Verified 01/07/25 11:38 Home Medications Medication Instructions Recorded Confirmed Type diltiazem HCl 180 mg 180 mg PO DAILY 12/27/22 01/07/25 History capsule,extended release 24 hr (Cardizem CD) donepezil 5 mg tablet 5 mg PO QAM 12/27/22 01/07/25 History furosemide 40 mg tablet 40 mg PO BID 12/27/22 01/07/25 History potassium chloride 20 mEq 20 meq PO BID 12/27/22 01/07/25 History tablet,extended release(part/cryst) cyanocobalamin (vitamin B-12) 1,000 mcg PO DAILY 12/11/24 01/07/25 History 1,000 mcg tablet (Vitamin B-12) donepezil 10 mg tablet 10 mg PO HS 12/11/24 01/07/25 History loperamide 2 mg tablet 4 mg PO TID PRN Diarrhea 12/11/24 01/07/25 History (Anti-Diarrheal (loperamide)) Past Med/Surg History Problem List (Updated 01/09/25 @ 03:06 by Lakhwinder Elam MD) Dementia Acute kidney injury Atrial fibrillation with RVR Small bowel obstruction (Acute) Incarcerated left inguinal hernia Nasal bone fractures COVID-19 Encounter for pre-operative examination Schizophrenia Hypoxia (Acute) Microscopic hematuria Closed left hip fracture (Acute) Hypertension Atrial fibrillation (Acute) Unspecified dementia, unspecified severity, with other behavioral disturbance Medical History (Updated 01/09/25 @ 03:06 by Lakhwinder Elam MD) Acute blood loss anemia (ABLA) Acute anterior epistaxis Severe alcohol use disorder Cataracts, bilateral Periodic headache syndrome Surgical History (Updated 01/08/25 @ 16:02 by Kassi Pappas RN) S/P left inguinal hernia repair (01/07/25) Open left incarcerated inguinal hernia repair with mesh, release of small bowel obstruction, diagnostic laparoscopy (Left) - Silvestre Ellis DO Social History Smoking Status: Unknown if ever smoked Do You Dip or Chew Tobacco: No; Hx Alcohol Use: No Hx Substance Use: No Preferred Language: Nepalese Communication Ability: Impaired Dramatic Coach Required: No Beliefs That Will Affect Care: None Current Living Situation: Other Current Living Situation Comment: [facility] Feels Safe at Home: Yes Assistive Devices: None Review of Systems Review of Systems: See HPI above Physical Exam Physical Exam: General: no acute distress; non-toxic appearing; frail appearing; cooperative; SpO2 96% on RA HEENT: normocephalic, atraumatic; no scleral icterus; PERRLA w/ EOMs intact; vision and hearing intact Neck: supple; no lymphadenopathy; trachea midline Skin: warm, dry without signs of tenting; no cyanosis; no rashes, bruising, lesions, or erythema noted CV: chest wall NTP; RRR; S1/S2 normal; no murmurs/rubs/gallops; pulses intact an d symmetric at radial, DP, and PT Lungs: no acute respiratory distress; symmetrical chest wall expansion; clear breath sounds across all lung mendoza w/o adventitious sounds; no wheezing ABD: Soft, hernias mildly TTP; no rashes or bruising noted on the abdomen or flanks bilaterally; BS present; no rebound/guarding Left inguinal hernia: Enlarged left inguinal hernia sac with protrusion; not erythematous; no signs of active bleeding MSK: no tics or fasciculations; no edema noted in the LEs b/l, nonerythematous Neuro: Oriented to ; otherwise, disoriented; fluent speech; does follow commands; no focal deficits appreciated; patient reports sensation intact and symmetric in lower extremities bilaterally Results & Data Results & Data Vital Signs (Past 12 Hours) Vital Signs Temp Pulse Resp BP Pulse Ox O2 Del Method 01/07/25 10:42 124 H 21 96 Room Air 01/07/25 10:15 137 H 22 01/07/25 10:10 124/89 01/07/25 09:54 135 H 21 01/07/25 09:36 122 H 20 01/07/25 09:09 122 H 32 H 01/07/25 09:08 128 H 01/07/25 08:42 95 Room Air 01/07/25 08:20 37.0 C 92 H 17 127/119 H 97 Room Air Laboratory Results Abnormal lab results 01/07/25 01/07/25 Range/Units 08:51 09:22 WBC 14.51 H (4.8-10.8) K/ul RDW Std Deviation 49.4 H (36.4-46.3) fL MPV 13.1 H (9.4-12.4) fL Neut # (Auto) 12.94 H (1.40-6.50) K/uL Lymph # (Auto) 0.54 L (1.20-3.40) K/uL Lawrence # (Auto) 0.93 H (0.11-0.59) K/uL PT 12.1 H (9.0-12.0) Seconds Chloride 97 L (98-107) mmol/L Anion Gap 15 H (3-11) BUN 42 H (6-23) mg/dl Creatinine 2.08 H (0.6-1.4) mg/dl BUN/Creatinine Ratio 20.2 H (10-20) Glucose 140 H (70-99(Fasting)) mg/dl Calcium 10.9 H (8.6-10.3) mg/dl Total Bilirubin 2.8 H (0.2-1.0) mg/dl Diagnostic Findings Abdomen/Pelvis CT 01/07/25 09:48 CT OF THE ABDOMEN AND PELVIS WITHOUT CONTRAST CLINICAL HISTORY: Hernia. Abdominal pain. COMPARISON STUDY: CT of the abdomen and pelvis May 02, 2024. TECHNIQUE: Axial images of the abdomen and pelvis were obtained without IV c ontrast. Images were reviewed in the axial, sagittal, and coronal planes. Automated exposure control was utilized for the study. A dose lowering technique was utilized adhering to the principles of ALARA. FINDINGS: Visualized portions of the lung bases are unremarkable. No pneumatosis, free air or portal venous gas is present. Evaluation of the abdomen and pelvis is suboptimal on this unenhanced exam. There are gallstones within the gallbladder. No evidence for acute cholecystitis. Several hypodense hepatic lesions are unchanged since CT of May 02, 2024. These measure up to 1.3 cm per there is no biliary or pancreatic ductal dilatation. There is no hydronephrosis. Unenhanced images of the spleen, adrenal glands, kidneys and pancreas are unremarkable. Bilateral hip arthroplasties are incidentally noted. A large left inguinal hernia is again noted. This contains the sigmoid colon and multiple loops of small bowel. The proximal small bowel, proximal to the hernia is moderately dilated and fluid-filled, measuring up to 4.4 cm in caliber. The stomach is also markedly distended with air-fluid level. Transition point within the left lower quadrant, at the superior aspect of the hernia on image 263 is noted. Multiple loops of dilated fluid-filled small bowel within the hernia sac are present. There is associated mesenteric stranding. There is a small amount of ascites within the hernia sac, within the left hemiscrotum. No fluid collections are present. Images of the pelvis are degraded by streak artifact from bilateral hip arthroplasties. IMPRESSION: Findings consistent with a high-grade small bowel obstruction related to a large left inguinal hernia which contains multiple small bowel loops and the sigmoid colon. The small bowel and stomach proximal to the hernia are fluid-filled and dilated. Distal small bowel decompressed. Multiple dilated fluid filled loops within the left hemiscrotum. Therefore, a closed loop obstruction within the hernia sac cannot be excluded. Associated mesenteric stranding and a small amount of ascites. The findings suggest an incarcerated and possibly strangulated hernia. Surgical consultation is recommended. ACT 112: Negative or not required by law. Electronically signed by: Eliseo Wilson M.D. 01/07/2025 10:28 AM ECG Additional Comments: ECG revealed atrial fibrillation with RVR at 110 bpm; QTc 381 History of atrial fibrillation on prior EKGs Code Status & VTE Plan Code Status Note: Per review of paperwork sent over from [facility] patient does not have an advanced directive. Patient currently lacks medical capacity given his advanced dementia. Patient was listed as a full code on December 11. Will plan to leave him as a full code for now; unable to reach [facility] to review guardianship on admission. VTE Prophylaxis Plan VTE Prophylaxis will be ordered: Yes Supervising Physician Co-Signing Physician Notes I personally saw and examined the patient. I independently reviewed the labs, EKG, imaging, problem list, medication list, past medical history and family history. I verified all cornell points and agree with Kip Wang PA-C with the following exceptions and/or additions: 84 year old male presents to the ER with incarcerated inguinal hernia. Reportedly occurred over the last 2 days although patient history unreliable given underlying dementia and not orientated to place or time. O/E Alert, orientated to person only, HS irregular rhythm, regular rate, no murmurs, Abdo SNT, Tender over large left inguinal hernia which appears erythematous A/P SBO with large inguinal hernia - Consult general surgery, planning on surgical management Atrial fibrillation - unclear why he is not on anticoagulation but unable to start due to perioperative status, will hold off diltiazem initially as currently appears rate controlled but may have to add IV diltiazem later pending clinical course PG Care Time/CCT Total # of Minutes Spent Total Time Spent with Patient: Total time spent is greater than 50% in coordination of care (as documented) at patient's floor/unit and/or counseling patient: Coding [place] [address] INT INP/OBS CARE 3/75MIN Patient Type Established Medical Decision Making High Complexity Diagnoses Small bowel obstruction K56.609 Atrial fibrillation with RVR I48.91 Acute kidney injury N17.9
--- NOTE | 2025-01-07 11:39 | Surgery Consultation ---
Date of Consultation January 07, 2025 Assessment & Plan (1) Incarcerated left inguinal hernia: His CT images and results were personally viewed and interpreted by myself He has a large incarcerated left inguinal hernia causing a small bowel obstruction Due to his mental condition we are unable to consent him for surgery, but the surgery is life threatening and will proceed with emergent intervention Plan on open incarcerated left inguinal hernia repair, possible mesh, possible exploratory laparotomy, possible bowel resection (2) Small bowel obstruction: History of Present Illness Reason for Consultation: Incarcerated Left Inguinal Hernia History of Present Illness This is an 84 yo incarcerated male prisoner who was sent in today with worsening sharp left groin pain and swelling. The patient is demented and is not able to give any history as all the history is taken from the alf guards and ER doctor. Apparently he has had a known left inguinal hernia for sometime that has been very large, but got more tender and swollen over the last few days. He had some nausea and emesis as well. No fevers or chills. Allergies Allergy/AdvReac Type Severity Reaction Status Date / Time No Known Allergies Allergy Verified 01/07/25 11:38 Home Medications Medication Instructions Recorded Confirmed Type diltiazem HCl 180 mg 180 mg PO DAILY 12/27/22 01/07/25 History capsule,extended release 24 hr (Cardizem CD) donepezil 5 mg tablet 5 mg PO QAM 12/27/22 01/07/25 History furosemide 40 mg tablet 40 mg PO BID 12/27/22 01/07/25 History potassium chloride 20 mEq 20 meq PO BID 12/27/22 01/07/25 History tablet,extended release(part/cryst) cyanocobalamin (vitamin B-12) 1,000 mcg PO DAILY 12/11/24 01/07/25 History 1,000 mcg tablet (Vitamin B-12) donepezil 10 mg tablet 10 mg PO HS 12/11/24 01/07/25 History loperamide 2 mg tablet 4 mg PO TID PRN Diarrhea 12/11/24 01/07/25 History (Anti-Diarrheal (loperamide)) Patient History Medical History Severe alcohol use disorder Cataracts, bilateral Periodic headache syndrome Social History Smoking Status: Unknown if ever smoked Do You Dip or Chew Tobacco: No; Hx Alcohol Use: No Hx Substance Use: No Preferred Language: Andorran Communication Ability: Impaired Guard Manager Required: No Beliefs That Will Affect Care: None Current Living Situation: Other Current Living Situation Comment: [facility] Feels Safe at Home: Yes Assistive Devices: None Review of Systems Review of Systems: Unobtainable due to mental health condition Physical Exam Constitutional: WD/WN, vitals as above Eyes: PERRL, conjunctivae normal, anicteric sclerae ENMT: external ear and nose normal, oropharynx normal Neck: trachea midline, no thyromegaly Respiratory: normal respiratory effort, lungs clear to auscultation Cardiovascular: RRR, no murmur, no edema Gastrointestinal (Abdomen): Inspection/Auscultation: + abdomen abnormal to inspection and abdomen not distended Percussion/Palpation: + abdomen tender (left groin), + guarding, abdomen soft and + hernia (Incarcerated left inguinal hernia, extends into scrotum) Musculoskeletal: no cyanosis or clubbing, extremities motor strength 5/5 Skin: no rashes, warm and dry Neurologic: PERRL, EOMI, accommodation nl, no face palsy, no dysarthria Psychiatric: A+Ox3, euthymic affect Results & Data Vital Signs (Past 12 Hours) Vital Signs Temp Pulse Resp BP Pulse Ox O2 Del Method 01/07/25 10:42 124 H 21 96 Room Air 01/07/25 10:15 137 H 22 01/07/25 10:10 124/89 01/07/25 09:54 135 H 21 01/07/25 09:36 122 H 20 01/07/25 09:09 122 H 32 H 01/07/25 09:08 128 H 01/07/25 08:42 95 Room Air 01/07/25 08:20 37.0 C 92 H 17 127/119 H 97 Room Air PG Care Time/CCT Total # of Minutes Spent Total Time Spent with Patient: Total time spent is greater than 50% in coordination of care (as documented) at patient's floor/unit and/or counseling patient: Coding Level of Care Code 31390 OFFICE CONSULT LVL M Diagnoses Incarcerated left inguinal hernia K40.30 Small bowel obstruction K56.609
[2025-01-07] MEDS: LACTATED RINGER'S 1,000 ML IV SCH (12:15)
--- NOTE | 2025-01-07 12:55 | Anesthesiology Consultation ---
Date of Service January 07, 2025 Assessment & Plan Chart Review Chart Review: Acceptable Risk for Surgery and Patient NOT seen in Pre Admission Testing Consults Requested none ASA [id number] Proposed Anesthesia Anesthesia Type: General History Surgery Operation Date: 01/07/25 10:30 Proposed Procedures p Left Incarcerated Inguinal Hernia Repair - Silvestre Ellis DO s Exploratory Laparotomy Possible Bowel Resection - Silvestre Ellsi DO Height/Weight Height: 5 ft 8 in Weight: 69.7 kg Allergies Allergy/AdvReac Type Severity Reaction Status Date / Time No Known Allergies Allergy Verified 01/07/25 11:38 Medications Home Medications Medication Instructions Recorded Confirmed Last Taken diltiazem HCl 180 mg 180 mg PO DAILY 12/27/22 01/07/25 01/07/25 capsule,extended release 24 hr (Cardizem CD) donepezil 5 mg tablet 5 mg PO QAM 12/27/22 01/07/25 01/07/25 furosemide 40 mg tablet 40 mg PO BID 12/27/22 01/07/25 01/07/25 06:30 potassium chloride 20 mEq 20 meq PO BID 12/27/22 01/07/25 01/07/25 06:30 tablet,extended release(part/cryst) cyanocobalamin (vitamin B-12) 1,000 mcg PO DAILY 12/11/24 01/07/25 01/07/25 1,000 mcg tablet (Vitamin B-12) donepezil 10 mg tablet 10 mg PO HS 12/11/24 01/07/25 01/06/25 loperamide 2 mg tablet 4 mg PO TID PRN Diarrhea 12/11/24 01/07/25 Unknown (Anti-Diarrheal (loperamide)) NPO Last Intake of Solids Comment: Corrections officers stated nothing today; Patient unable to answer Past Medical History Medical History Severe alcohol use disorder Cataracts, bilateral Periodic headache syndrome A Fib HTN HLD ASCVD Aorta Schizophrenia Dementia DANIELLA Exercise / Class Metabolic Activity III < 4 Walking/Shop/Light housework Past Anesthesia History No Hx of Anesthesia Complications and No Family Hx of Anesthesia Complications History of PONV No Hx of PONV and No Hx of Motion Sickness Social History Smoking Status: Unknown if ever smoked Do You Dip or Chew Tobacco: No Hx Alcohol Use: No Hx Substance Use: No substance use type: does not use Physical Exam Vital Signs Last Vital Signs Temp 36.9 C 01/07/25 12:06 Pulse 91 H 01/07/25 12:06 Resp 16 01/07/25 12:06 BP 148/89 H 01/07/25 12:06 Pulse Ox 100 01/07/25 12:06 O2 Del Method Nasal Cannula 01/07/25 12:06 O2 Flow Rate 2 01/07/25 12:06 Testing Laboratory Results 01/07/25 08:51 01/07/25 08:51 PT 12.1 Seconds (9.0-12.0) H 01/07/25 09:22 INR 1.1 (0.9-1.1) 01/07/25 09:22 Electrocardiogram Date: 01/07/25 Findings: + AFIB @ (@ 110,RVR;? septal infarct,age ?;ST & T abnl) Chest X-Ray Date: 05/02/24 Findings: + NAD, + cardiomegaly and + atherosclerosis of thoracic aorta Echocardiogram Date: 12/28/22 EF: 60% LV Function: normal RWMA: + none Other Findings: + LVH (mild) Valvular Disease: + MR (mild) mild TR
[2025-01-07] MEDS ORDERED: fentaNYL citrate PF 100 MCG/2 ML VIAL ONE ×2 (13:05→16:22)
[2025-01-07] MEDS ORDERED: MIDAZOLAM HCL 1 MG/ML 2ML VIAL ONE (13:05)
[2025-01-07] MEDS ORDERED: SUCCINYLCHOLINE CHLORIDE 20 MG/ML 10 ML VIAL IV ONE (13:41)
[2025-01-07] MEDS ORDERED: PHENYLEPHRINE HCL 10 MG/ML VIAL ONE (13:54)
[2025-01-07] MEDS ORDERED: PHENYLEPHRINE 100MCG/ML 5ML SYR ONE (13:54)
[2025-01-07] MEDS ORDERED: PROPOFOL IV EMULSION 10 MG/ML 20 ML VIAL IV ONE (14:08)
[2025-01-07] MEDS ORDERED: LIDOCAINE 2% 2 ML VIAL/AMP(20MG/ML) INFIL ONE (14:08)
[2025-01-07] MEDS ORDERED: ROCURONIUM BROMIDE 10 MG/ML 5 ML VIAL IV ONE ×2 (14:08→14:20)
[2025-01-07] MEDS: cefOXitin 2,000 MG in DEXTROSE 5 % MINI-B 50 ML IV SCH (14:10)
[2025-01-07] MEDS ORDERED: ONDANSETRON INJ 2 MG/ML 2 ML VIAL ONE (15:38)
[2025-01-07] MEDS ORDERED: SUGAMMADEX SODIUM 200 MG/2 ML VIAL IV ONE (16:06)
[2025-01-07] MEDS: BUPIVACAINE/EPINEPHRINE 0.25% 1:200,000 30 ML VIAL ONE (16:24)
--- NOTE | 2025-01-07 16:29 | Post Operative Brief Note ---
PG Immediate Post Op with CF Date of Surgery January 07, 2025 Pre & Post Diagnosis Operation Date: 01/07/25 10:30 Pre-Op Diagnosis: Incarcerated left inguinal hernia and small bowel obstruction. Post-Op Diagnosis: Incarcerated left inguinal hernia and small bowel obstruction. I identified the patient and participated in the time-out.: Yes Procedure Operation Date: 01/07/25 10:30 Actual Procedures p Open left incarcerated inguinal hernia repair with mesh, release of small bowel obstruction, diagnostic laparoscopy (Left) - Silvestre Ellis DO Surgeon Silvestre Ellis DO Chief Analytics Officer Zi AVILA Estimated Blood Loss 50 Findings See Below Large incarcerated left inguinal hernia causing small bowel obstruction and also containing the entire sigmoid colon Healthy appearing small bowel without signs of ischemia on laparoscopy Specimens Specimen Description: A. Hernia sac. Drains Decompression Tube (NG tube to right nare per VOLUNTEER ASSISTANT. ) and Muro Catheter (16Fr placed prior to start of case without any difficulty) Complications none Disposition Disposition: Recovery Room
--- NOTE | 2025-01-07 16:42 | Operative Report ---
PG Post Operative Report Pre & Post Diagnosis Operation Date: 01/07/25 10:30 Pre-Op Diagnosis: Incarcerated left inguinal hernia and small bowel obstruction. Post-Op Diagnosis: Incarcerated left inguinal hernia and small bowel obstruction. I identified the patient and participated in the time-out.: Yes Procedure Operation Date: 01/07/25 10:30 Actual Procedures p Open left incarcerated inguinal hernia repair with mesh, release of small bowel obstruction, diagnostic laparoscopy (Left) - Silvestre Ellis DO Surgeon Silvestre Ellis DO Physician Assistant Certified Zi AVILA Estimated Blood Loss 50 Findings See Below Large incarcerated left inguinal hernia causing small bowel obstruction and also containing the entire sigmoid colon Healthy appearing small bowel without signs of ischemia on laparoscopy Specimens Hernia sac to pathology Drains None Anesthesia Type General Complications none Disposition Disposition: Recovery Room Indications 84-year-old male with incarcerated left inguinal hernia causing a small bowel obstruction Description of Procedure The patient was brought to the operating room and placed in the supine position. At this time he underwent General endotracheal anesthesia without any problems. His left groin was prepped and draped in the usual sterile fashion. He was given appropriate pre-operative antibiotics. A timeout was called. The procedure was verified as Open Incarcerated Left inguinal hernia repair, possible mesh, possible laparotomy/laparoscopy, possible bowel resection. Surgical, anesthesia and nursing teams agreed and the procedure was begun. A transverse incision was made over the left inguinal canal using a #15 blade scalpel after injection of 0.25% Marcaine with epinephrine to anesthetize the skin. The incision was carried down the the external oblique aponeurosis with electrocautery which was cleared off of any tissue. The external oblique aponeurosis was then incised using a #15 blade scalpel and opened inferiomedially through the external inguinal ring with Metzenbaum scissors taking care not to injure the ilioinguinal nerve. It was then opened superiolaterally as well. The hernia sac was opened and this contained the entire sigmoid colon and small bowel. The contents were slowly reduced out of the scrotum and brought into the operative field. I was able to visualize and pull into the field the area of small bowel that was stuck at the hernia neck. This was viable. The mesentery was inflamed and edematous but there were no signs of ischemia. I was able to release the small bowel obstruction. At this point the small bowel and sigmoid was reduced into the abdomen. The hernia sac was then dissected off of the cord and the redundant portion was excised and tied off using 2-0 Vicryl. At this time the blown out inguinal floor was reapproximated using 1 Prolene suture. A flat keyhole mesh was then sutured to the pubic tubercle medially, shelving edge of the inguinal ligament inferiorly and the conjoint tendon superiorly using simple interrupted 2-0 PDS. The tails of the mesh were loosely overlapped recreating the internal inguinal ring leaving adequate room for the cord structures to pass. The incision was irrigated until clear. Hemostasis was achieved using electrocautery. Hemostasis was complete. At this time the external oblique aponeurosis was closed using a running 2-0 Vicryl taking care not to injure any structures beneath. Darryl's fascia was closed using interrupted 3-0 Vicryl and the skin was closed using annita. We then proceed with a diagnostic laparoscopy to get one more look at the small bowel. A LUQ incision was made with a #15 blade scalpel and the Veress needle was inserted. Pneumoperitoneum was established to 15mmHg. 5mm trocar was introduced. Laparoscope was introduced. No injury to was seen upon entrance to the abdomen. Two further 5mm ports were placed in the left abdomen. The area of small bowel was visualized and had no signs of ischemia. At this time the trocars were removed. Skin was closed with annita. Needle and sponge counts were correct x 2. Steri-strips and dressing were applied. Gentle traction was placed on the testicle to ensure its location in the scrotum. The patient was then awakened from anesthesia having remained stable throughout the entire case and transported to PACU in stable condition. The nurse practitioner was present and scrubbed for the entire procedure. She was essential in positioning, prepping and draping the patient, retraction and exposure, driving the laparoscope, closure of the incisions and placement of the dressings. I attest to the content of the Intraoperative Record and any orders documented therein. Any exceptions are noted below.
[2025-01-07] MEDS ORDERED: ePHEDrine sulfate 50 MG/ML AMP IV PRN (17:12)
[2025-01-07] MEDS ORDERED: ATROPINE SULFATE 0.1 MG/ML 10ML SYR IV PRN (17:12)
[2025-01-07] MEDS: HYDROmorphone INJ 1 MG/ML SYRINGE IV PRN (17:16)
[2025-01-07] MEDS ORDERED: HYDROmorphone INJ 0.5 MG/0.5 ML SYR IV PRN (17:30)
[2025-01-07] MEDS: HYDROmorphone INJ 1 MG/ML SYRINGE ONE ×2 (17:36→18:38)
--- NOTE | 2025-01-07 17:47 | Anesthesiology Progress Note ---
Date of Service January 07, 2025 Anesthesia Post Procedure Vital Signs Vital Signs: Temp Pulse Pulse Pulse Resp BP BP 01/07/25 17:30 133 H 20 126/90 01/07/25 17:20 131 H 17 100/82 01/07/25 17:10 140 H 23 127/82 01/07/25 17:00 137 H 14 122/88 01/07/25 16:50 129 H 17 142/85 H 01/07/25 16:40 111 H 21 118/75 01/07/25 16:33 36.0 C L 104 H 18 124/88 01/07/25 12:49 01/07/25 12:06 36.9 C 91 H 16 148/89 H 01/07/25 11:33 91 H 22 01/07/25 10:42 124 H 21 01/07/25 10:15 137 H 22 01/07/25 10:10 124/89 01/07/25 09:54 135 H 21 01/07/25 09:36 122 H 20 01/07/25 09:09 122 H 32 H 01/07/25 09:08 128 H 01/07/25 08:42 01/07/25 08:20 37.0 C 92 H 17 127/119 H Pulse Ox O2 Del Method O2 Flow Rate 01/07/25 17:30 97 Nasal Cannula 2 01/07/25 17:20 98 Nasal Cannula 2 01/07/25 17:10 90 Room Air 01/07/25 17:00 96 Room Air 01/07/25 16:50 96 Room Air 01/07/25 16:40 98 Oxymask 4 01/07/25 16:33 98 Oxymask 4 01/07/25 12:49 Nasal Cannula 2 01/07/25 12:06 100 Nasal Cannula 2 01/07/25 11:33 01/07/25 10:42 96 Room Air 01/07/25 10:15 01/07/25 10:10 01/07/25 09:54 01/07/25 09:36 01/07/25 09:09 01/07/25 09:08 01/07/25 08:42 95 Room Air 01/07/25 08:20 97 Room Air Transfer of Care Handoff Completed per policy Notes Mental Status: alert / awake / arousable and see notes below (pt has dementia) Patient Amnestic to Procedure: Yes Nausea / Vomiting: adequately controlled Pain: adequately controlled Airway Patency, RR, SpO2: stable & adequate BP & HR: stable & adequate Hydration State: stable & adequate Anesthetic Complications: no major complications apparent
--- NOTE | 2025-01-07 17:58 | XRay Report ---
Exam: Abdomen single view Reason for exam: Nasogastric tube placement status post hernia repair and bowel resection. Previous studies: None FINDINGS: Nasogastric tube is seen with the tip in the mid epigastric region and could be advanced approximately 6 cm. Gastric air bubble is moderately distended with diffuse distention of small bowel loops is likely postoperative ileus. Free air is seen beneath the right hemidiaphragm most likely from the recent bowel resection surgery. Clips are seen in the left midabdomen. IMPRESSION: 1. Nasogastric tube probably within the proximal stomach although should be advanced approximately 6 cm. 2. Diffuse gaseous distention of the GI tract consistent with postoperative ileus. 3. Pneumoperitoneum most likely postoperative in nature. 4. Follow-up exam recommended. Electronically signed by Ashkan Mckeon 01-07-2025 5:58 PM
[2025-01-07] MEDS ORDERED: MoRPHine SULFATE 4 MG/ML 1 ML CARP\\VIAL IV PRN (18:36)
[2025-01-07] MEDS ORDERED: MoRPHine SULFATE 2 MG/ML CARP IV PRN ×2 (18:36→20:41)
[2025-01-07] MEDS ORDERED: ONDANSETRON INJ 2 MG/ML 2 ML VIAL IV PRN (18:36)
[2025-01-07] MEDS: ACETAMINOPHEN 1,000 MG/100 ML VIAL IV PRN (19:50)
[2025-01-07] MEDS: LACTATED RINGER'S 1,000 ML IV ONE (20:29)
[2025-01-07 21:28] LABS: BUN Creatinine Ratio 23.3 (10-20); Creatinine Clr Calc Pharmacy 25.8 ml/min; Magnesium 1.8 mg/dl (1.7-2.4); Potassium 3.9 mmol/L (3.5-5.1)
[2025-01-07] MEDS ORDERED: STAT IV Infusion **Titration per Protocol STA (21:44)
[2025-01-07 21:51] LABS: Basophils # (auto) 0.01 K/uL (0.00-0.20); Basophils % (auto) 0.1 %; Hematocrit (blood only) 38.7 % (42.0-52.0); Hemoglobin 12.8 g/dl (14.0-18.0); Immature Granulocytes # (auto) 0.03 K/uL (0.01-0.20); Immature Granulocytes % (auto) 0.3 %; Lymphocytes # (auto) 0.42 K/uL (1.20-3.40); Mean Corpuscular Hemoglobin 32.5 pg (25.0-34.0); Mean Corpuscular Hgb Conc 33.1 g/dL (32.0-36.0); Mean Corpuscular Volume 98.2 fL (80.0-100.0); Monocytes # (auto) 0.98 K/uL (0.11-0.59); Monocytes % (auto) 9.4 %; Neutrophils # (auto) 8.99 K/uL (1.40-6.50); Neutrophils % (auto) 86.2 %; Platelet Count 161 K/uL (130-400); RDW Coefficient of Variation 14.3 % (11.5-14.5); RDW Standard Deviation 52.2 fL (36.4-46.3); Red Blood Count 3.94 M/uL (4.70-6.10); White Blood Count 10.43 K/ul (4.8-10.8)
[2025-01-07] MEDS: dilTIAZem HCL 125 MG in DEXTROSE 5% 100 ML IV SCH (22:03)
[2025-01-07] MEDS ORDERED: GLUCOSE 40% GEL 15 GM TUBE PO PRN (22:07)
[2025-01-07] MEDS ORDERED: GLUCAGON FOR INJ 1 MG VIAL SQ PRN (22:07)
[2025-01-07] MEDS ORDERED: DEXTROSE 50% 50 ML SYRINGE IV PRN (22:07)
[2025-01-07] MEDS ORDERED: GLUCOSE 10 TAB/TUBE PO PRN (22:07)
[2025-01-07] MEDS ORDERED: CARBOHYDRATES FOR HYPOGLYCEMIA PO PRN (22:07)
--- NOTE | 2025-01-07 22:20 | XRay Report ---
Exam(s): XR KUB EXAM: XR Abdomen, 1 View CLINICAL HISTORY: Reason for exam: NG placement. TECHNIQUE: Frontal supine view of the abdomen/pelvis. COMPARISON: No relevant prior studies available. FINDINGS/IMPRESSION: 1. Enteric tube with tip at the level of the distal esophagus and side port in the mid esophageal level. Recommend advancing 15 cm. Electronically signed by: Diaz Suero M.D. 01/07/25 22:19 PM
[2025-01-08] MEDS: INSULIN ASPART PER UNIT CHARGE SC SCH ×2 (00:24→20:15)
--- NOTE | 2025-01-08 00:51 | XRay Report ---
Exam(s): XR CXR 1 VIEW EXAM: XR Chest, 1 View CLINICAL HISTORY: Reason for exam: hypoxia. TECHNIQUE: Frontal view of the chest. COMPARISON: 05/02/24 FINDINGS/IMPRESSION: 1. Enteric tube with tip at the level of the distal esophagus. 2. Stable cardiomegaly. 3. No airspace consolidation, pleural effusion, or pneumothorax. 4. No acute osseous findings. Electronically signed by: Diaz Suero M.D. 01/08/25 00:50 AM
--- NOTE | 2025-01-08 01:27 | XRay Report ---
EXAM: XR KUB/Abdomen 1 view CLINICAL HISTORY: NG placement. TECHNIQUE: X-ray images of the abdomen were obtained in frontal projection. COMPARISON: 01/07/2025, XR KUB/Abdomen FINDINGS: Chest leads are seen projecting over the visualized part of the chest and upper abdomen. A tube is extending from the visualized part of the chest with a tip that appears to be below the left hemidiaphragm. Gas Pattern: Prominent small bowel loops are identified Mildly prominent gas-filled large bowel shadows. Soft Tissues: Soft tissues of the abdomen appear normal without evidence of masses or calcifications. The liver is normal in position. The rest of the abdominal visceral shadows are not visualized due to gases Reduced bone density Degenerative changes are identified in visualized spine with osteophytes Mild scoliosis was identified in the visualized spine with convexity towards the right side IMPRESSION: 1. A tube is extending from the visualized part of the chest with a tip that appears to be below the left hemidiaphragm, further towards the left side in the current examination, in comparison to the last examination likely a nasogastric tube however, its other end is not visualized. 2. Prominent small bowel loops and mildly prominent gas-filled large bowel shadows are more evident in the present examination. If clinically required CT scan may be obtained to rule out intestinal obstruction/ileus. 3. A stable NG tube tip is likely in the stomach however the fenestrate is likely to be in the lower esophagus/esophagogastric junction. 4. A previously seen questionable gas shadow under the right diaphragm is not present at this time. Electronically signed by Valentin Kraus 01-08-2025 01:27 AM
--- NOTE | 2025-01-08 05:24 | Electrocardiogram Report ---
Test Reason : Blood Pressure : */* mmHG Vent. Rate : 110 BPM Atrial Rate : * BPM P-R Int : * ms QRS Dur : 84 ms QT Int : 282 ms P-R-T Axes : * 42 249 degrees QTcB Int : 381 ms Poor data quality, interpretation may be adversely affected Atrial fibrillation with rapid ventricular response Septal infarct (cited on or before 27-Dec-2022) Nonspecific ST and T wave abnormality Abnormal ECG When compared with ECG of 04-Jan-2023 23:47, No significant change Confirmed by Steve Dhaliwal ([id number]) on 01/08/2025 5:23:55 AM Referred By: [facility] Confirmed By: Steve Dhaliwal
[2025-01-08 07:15] LABS: Basophils # (auto) 0.01 K/uL (0.00-0.20); Basophils % (auto) 0.1 %; Hematocrit (blood only) 35.9 % (42.0-52.0); Hemoglobin 12.2 g/dl (14.0-18.0); Immature Granulocytes # (auto) 0.04 K/uL (0.01-0.20); Immature Granulocytes % (auto) 0.3 %; Mean Corpuscular Hemoglobin 33.2 pg (25.0-34.0); Mean Corpuscular Volume 97.8 fL (80.0-100.0); Mean Platelet Volume 12.8 fL (9.4-12.4); Monocytes # (auto) 0.99 K/uL (0.11-0.59); Monocytes % (auto) 8.2 %; Neutrophils # (auto) 10.48 K/uL (1.40-6.50); Neutrophils % (auto) 86.4 %; Platelet Count 158 K/uL (130-400); RDW Coefficient of Variation 14.2 % (11.5-14.5); RDW Standard Deviation 51.8 fL (36.4-46.3); Red Blood Count 3.67 M/uL (4.70-6.10); White Blood Count 12.12 K/ul (4.8-10.8)
[2025-01-08 07:45] LABS: BUN Creatinine Ratio 25.4 (10-20); Calcium 7.7 mg/dl (8.6-10.3); Potassium 3.8 mmol/L (3.5-5.1)
--- NOTE | 2025-01-08 09:57 | Surgery Progress Note ---
Date of Service January 08, 2025 Assessment & Plan (1) Incarcerated left inguinal hernia: Plan: POD 1 Open left incarcerated inguinal hernia repair with mesh, diagnostic laparoscopy release of small bowel obstruction Pt with dementia , documented +BMs Abd soft , non distended, surgical dressing in place Will remove NGT (120ml documented since OR) remove Gates catheter patient may start a diet pt seen and examined with Dr Ellis Admission and Anticipated Discharge Date Admission Date: January 07, 2025 Supervising Physician Co-Signing Physician Notes POD#1 Open R incarcerated inguinal hernia repair with mesh Had 3 BM's overnight Remove NGT, initiate diet Remove Gates Would not go past a clear liquid diet today Will continue to follow Subjective Patient requesting water +BMs since surgery Review of Systems Constitutional: no fever and no chills Gastrointestinal: + abdominal pain; no nausea and no vomit ing Genitourinary: + problem reported (gates cath ) Physical Exam Constitutional: cooperative and comfortable; no acute distress Respiratory: normal respiratory effort; no respiratory distress Cardiovascular: Rate/Rhythm: regular rate Gastrointestinal (Abdomen): Inspection/Auscultation: + abdominal surgical incision (dressing CDI ); abdomen not distended Percussion/Palpation: + abdomen tender and abdomen soft Results & Data Vital Signs (Past 12 Hours) Vital Signs Temp Pulse Resp BP Pulse Ox O2 Del Method O2 Flow Rate 01/08/25 08:13 99.1 F 82 18 121/71 97 Nasal Cannula 3.0 01/08/25 04:36 96 H 102/68 01/08/25 03:01 98.2 F 105 H 18 108/67 96 Nasal Cannula 3.0 01/08/25 02:06 86 106/71 01/08/25 01:04 107 H 103/71 01/08/25 00:15 96 H 105/66 01/07/25 23:45 97.7 F 96 H 20 99/68 L 96 Nasal Cannula 2 01/07/25 23:37 122 H 20 113/73 97 Nasal Cannula 2 Results CBC w Diff Results: RBC 3.67 M/uL (4.70-6.10) L 01/08/25 WBC 12.12 K/ul (4.8-10.8) H 01/08/25 Hgb 12.2 g/dl (14.0-18.0) L 01/08/25 Hct 35.9 % (42.0-52.0) L 01/08/25 MCV 97.8 fL (80.0-100.0) 01/08/25 MCH 33.2 pg (25.0-34.0) 01/08/25 MCHC 34.0 g/dL (32.0-36.0) 01/08/25 RDW Standard Deviation 51.8 fL (36.4-46.3) H 01/08/25 RDW Coefficient of Variation 14.2 % (11.5-14.5) 01/08/25 Plt Count 158 K/uL (130-400) 01/08/25 MPV 12.8 fL (9.4-12.4) H 01/08/25 Nucleated Red Blood Cells % (auto) 0.1 % 01/05 Nucleated RBC Absolute Count (auto) 0.02 K/uL (0-0.12) 08/19 Neutrophils (%) (Auto) 86.4 % 01/08/25 Lymphocytes (%) (Auto) 5.0 % 01/08/25 Monocytes # (Auto) 0.99 K/uL (0.11-0.59) H 01/08/25 Eosinophils # (Auto) 0.00 K/uL (0.00-0.50) 01/08/25 Immature Granulocyte % (Auto) 0.3 % 01/08/25 Neutrophils # (Auto) 10.48 K/uL (1.40-6.50) H 01/08/25 Lymphocytes # (Auto) 0.60 K/uL (1.20-3.40) L 01/08/25 Monocytes # (Auto) 0.99 K/uL (0.11-0.59) H 01/08/25 Eosinophils # (Auto) 0.00 K/uL (0.00-0.50) 01/08/25 Basophils # (Auto) 0.01 K/uL (0.00-0.20) 01/08/25 Immature Granulocyte # (Auto) 0.04 K/uL (0.01-0.20) 5 PG Care Time/CCT Total # of Minutes Spent Total Time Spent with Patient: Total time spent is greater than 50% in coordination of care (as documented) at patient's floor/unit and/or counseling patient: Coding Level of Care Code 64123 Post Operative Follow-Up Diagnoses Incarcerated left inguinal hernia K40.30
--- NOTE | 2025-01-08 12:35 | XCELERA ---
[id number]
[2025-01-08] MEDS ORDERED: HYDROCODONE/ACETAMOPHEN 5/325MG TAB PO PRN (17:30)
--- NOTE | 2025-01-08 17:30 | Hospitalist Progress Note ---
Date of Service January 08, 2025 Assessment & Plan (1) Incarcerated left inguinal hernia: Plan: POD #1 - s/p open left incarcerated inguinal hernia repair with mesh, release of small bowel obstruction, diagnostic laparoscopy by Dr Ellis appreciate his assistance NG tube has been removed has already moved his bowels clear liquids started by gen surg - tolerated such repeat labs am (2) Small bowel obstruction: Plan: 2nd to #1 resolved bowel function intact; +BMs this am (3) Atrial fibrillation with RVR: Plan: known history of a.fib on diltiazem only at the [facility] but not anticoagulation remains on diltiazem drip keep such until tomorrow if reliably taking PO tomorrow will switch dilt drip back to PO dilt no chronic anticoagulation due to risks outweigh benefits?? would have to check with [facility] on this echo with preserved EF check TSH am mag/k wnl (4) Acute kidney injury: Plan: baseline Cr 1.1 presented with Cr 2.1 likely prerenal in the setting of #1/#2 above as well as chronic lasix usage Cr today 1.9 cont IV fluids hold lasix repeat BMP am of note - no urinary obstruction on CT a/p at admission (5) Schizophrenia: Plan: only takes Aricept chronically at [facility] he is not on antipsychotic therapy did require restraints overnight due to confusion but now removed and he is mainly calm this afternoon (6) Hypertension: Plan: cont diltiazem (7) Dementia: Plan: advanced Aricept - continue Plan DVT proph - can likely start chemical DVT proph on 2/ Admission and Anticipated Discharge Date Admission Date: January 07, 2025 Subjective due to advanced dementia patient unable to provide any meaningful history he gives occasional 1 or 2 word answers to questions when asked if he had pain he said "yeah" - I asked him to point to the location of pain - he pointed to his right thigh tele - a.fib remains on cardizem infusion 10mg/hr by report - 2 BMs earlier this am NG tube has been removed tolerated clear liquids for lunch Review of Systems Review of Systems: Unobtainable due to cognitive status Physical Exam Physical Exam: gen - resting comfortably in bed, pleasantly confused neck - no JVD mouth - MMM heart - tachy, s1 s2, irregularly irregular lungs - CTA b/l abd - soft, NT, ND, BS+, dressings intact abdominal wall ext - no edema, pulses 2+ b/l psych - oriented to self only Results & Data Results & Data Vital Signs (Past 12 Hours) Vital Signs Temp Pulse Pulse Resp BP Pulse Ox O2 Del Method 01/08/25 14:56 37.0 C 86 20 109/66 95 Nasal Cannula 01/08/25 14:44 Nasal Cannula 01/08/25 11:58 36.5 C 86 18 105/65 96 Nasal Cannula 01/08/25 11:29 93 H 118/64 01/08/25 10:26 96 H 01/08/25 08:13 37.3 C 82 18 121/71 97 Nasal Cannula O2 Flow Rate 01/08/25 14:56 2.0 01/08/25 14:44 2 01/08/25 11:58 3.0 01/08/25 11:29 01/08/25 10:26 01/08/25 08:13 3.0 Laboratory Results Laboratory Results - last 24 hr 01/07/25 01/07/25 01/07/25 18:40 20:48 23:19 WBC 10.43 RBC 3.94 L Hgb 12.8 L D Hct 38.7 L MCV 98.2 MCH 32.5 MCHC 33.1 RDW Std Deviation 52.2 H RDW Coeff of Sammy 14.3 Plt Count 161 MPV 13.0 H Immature Gran % (Auto) 0.3 Neut % (Auto) 86.2 Lymph % (Auto) 4.0 [place] % (Auto) 9.4 Eos % (Auto) 0.0 Baso % (Auto) 0.1 Neut # (Auto) 8.99 H Lymph # (Auto) 0.42 L [place] # (Auto) 0.98 H Eos # (Auto) 0.00 Baso # (Auto) 0.01 Immature Gran # (Auto) 0.03 Sodium 144 Potassium 3.9 Chloride 109 H Carbon Dioxide 27 Anion Gap 8 BUN 48 H Creatinine 2.06 H Est Cr Clr Drug Dosing 25.8 eGFR 31.18 BUN/Creatinine Ratio 23.3 H Glucose 92 POC Glucose 81 Lactate 1.8 Calcium 8.0 L D Magnesium 1.8 Nasal Screen MRSA (PCR) Negative Blood Type O Positive Antibody Screen NEGATIVE 01/08/25 01/08/25 01/08/25 06:00 06:51 11:56 WBC 12.12 H RBC 3.67 L Hgb 12.2 L Hct 35.9 L MCV 97.8 MCH 33.2 MCHC 34.0 RDW Std Deviation 51.8 H RDW Coeff of Sammy 14.2 Plt Count 158 MPV 12.8 H Immature Gran % (Auto) 0.3 Neut % (Auto) 86.4 Lymph % (Auto) 5.0 [place] % (Auto) 8.2 Eos % (Auto) 0.0 Baso % (Auto) 0.1 Neut # (Auto) 10.48 H Lymph # (Auto) 0.60 L [place] # (Auto) 0.99 H Eos # (Auto) 0.00 Baso # (Auto) 0.01 Immature Gran # (Auto) 0.04 Sodium 143 Potassium 3.8 Chloride 110 H Carbon Dioxide 24 Anion Gap 9 BUN 50 H Creatinine 1.97 H Est Cr Clr Drug Dosing 27.0 eGFR 32.90 BUN/Creatinine Ratio 25.4 H Glucose 78 POC Glucose 84 75 Lactate Calcium 7.7 L Magnesium Nasal Screen MRSA (PCR) Blood Type Antibody Screen 01/08/25 16:33 WBC RBC Hgb Hct MCV MCH MCHC RDW Std Deviation RDW Coeff of Sammy Plt Count MPV Immature Gran % (Auto) Neut % (Auto) Lymph % (Auto) [place] % (Auto) Eos % (Auto) Baso % (Auto) Neut # (Auto) Lymph # (Auto) [place] # (Auto) Eos # (Auto) Baso # (Auto) Immature Gran # (Auto) Sodium Potassium Chloride Carbon Dioxide Anion Gap BUN Creatinine Est Cr Clr Drug Dosing eGFR BUN/Creatinine Ratio Glucose POC Glucose 138 H Lactate Calcium Magnesium Nasal Screen MRSA (PCR) Blood Type Antibody Screen PG Care Time/CCT Total # of Minutes Spent Total Time Spent with Patient: Total time spent is greater than 50% in coordination of care (as documented) at patient's floor/unit and/or counseling patient: Coding Level of Care Code 56226 SUB INP/OBS CARE 2/35MIN Diagnoses Incarcerated left inguinal hernia K40.30 Small bowel obstruction K56.609 Atrial fibrillation with RVR I48.91 Acute kidney injury N17.9 Schizophrenia F20.9 Hypertension I10 Dementia F03.90
[2025-01-08] MEDS ORDERED: MoRPHine SULFATE 2 MG/ML CARP IV PRN (17:32)
[2025-01-08] MEDS: PANTOprazole 40 MG TAB PO SCH (19:21)
[2025-01-08] MEDS: ACETAMINOPHEN 500 MG TAB PO SCH (20:09)
[2025-01-09] MEDS: Nursing to Pharmacy Communication SCH (03:49)
[2025-01-09] MEDS: PNEUMOCOCCAL VACCINE (PCV20) 20-VAL CONJ-DIP CRM/PF 0.5 ML SYR IM ONE (05:57)
[2025-01-09 07:22] LABS: Hematocrit (blood only) 35.2 % (42.0-52.0); Hemoglobin 11.5 g/dl (14.0-18.0); Mean Corpuscular Hemoglobin 32.2 pg (25.0-34.0); Mean Corpuscular Hgb Conc 32.7 g/dL (32.0-36.0); Mean Corpuscular Volume 98.6 fL (80.0-100.0); Mean Platelet Volume 13.3 fL (9.4-12.4); Platelet Count 131 K/uL (130-400); RDW Coefficient of Variation 14.2 % (11.5-14.5); RDW Standard Deviation 51.8 fL (36.4-46.3); Red Blood Count 3.57 M/uL (4.70-6.10); White Blood Count 10.42 K/ul (4.8-10.8)
[2025-01-09 07:34] LABS: BUN Creatinine Ratio 26.9 (10-20); Calcium 8.1 mg/dl (8.6-10.3); Creatinine Clr Calc Pharmacy 34.1 ml/min; Potassium 3.1 mmol/L (3.5-5.1)
[2025-01-09 07:49] LABS: Thyroid Stimulating Hormone 0.625 uIu/ml (0.300-4.500)
--- NOTE | 2025-01-09 08:35 | Surgery Progress Note ---
Date of Service January 09, 2025 Assessment & Plan (1) Incarcerated left inguinal hernia: Plan: POD 2 Open left incarcerated inguinal hernia repair with mesh, diagnostic laparoscopy release of small bowel obstruction Pt with dementia , documented +BMs VSS, WBC wnl Abd soft , non distended, reports TTP , surgical dressing in place NGT removed yesterday , on clear liquid diet encourage ambulation as able, guards report pt uses a walker in jail Continue care per primary team Admission and Anticipated Discharge Date Admission Date: January 07, 2025 Subjective pt reports some abdominal discomfort but guards reports pt hasn't complained of pain to nurses Review of Systems Constitutional: no fever and no chills Gastrointestinal: + abdominal pain; no nausea and no vomit ing Psychiatric: + confusion Physical Exam Constitutional: cooperative and comfortable; no acute distress Respiratory: normal respiratory effort; no respiratory distress Cardiovascular: Rate/Rhythm: regular rate Gastrointestinal (Abdomen): Inspection/Auscultation: + abdominal surgical incision (dressing CDI ); abdomen not distended Percussion/Palpation: + abdomen tender and abdomen soft Results & Data Vital Signs (Past 12 Hours) Vital Signs Temp Pulse Pulse Resp BP Pulse Ox O2 Del Method 01/09/25 07:41 99.0 F 81 17 106/65 95 Nasal Cannula 01/09/25 07:30 67 01/09/25 01:17 77 01/08/25 22:33 98.1 F 76 18 98/63 L 92 Nasal Cannula O2 Flow Rate 01/09/25 07:41 2 01/09/25 07:30 01/09/25 01:17 01/08/25 22:33 2 Results CBC w Diff Results: RBC 3.57 M/uL (4.70-6.10) L 01/09/25 WBC 10.42 K/ul (4.8-10.8) 01/09/25 Hgb 11.5 g/dl (14.0-18.0) L 01/09/25 Hct 35.2 % (42.0-52.0) L 01/09/25 MCV 98.6 fL (80.0-100.0) 01/09/25 MCH 32.2 pg (25.0-34.0) 01/09/25 MCHC 32.7 g/dL (32.0-36.0) 01/09/25 RDW Standard Deviation 51.8 fL (36.4-46.3) H 01/09/25 RDW Coefficient of Variation 14.2 % (11.5-14.5) 01/09/25 Plt Count 131 K/uL (130-400) 01/09/25 MPV 13.3 fL (9.4-12.4) H 01/09/25 Nucleated Red Blood Cells % (auto) 0.1 % 01/05 Nucleated RBC Absolute Count (auto) 0.02 K/uL (0-0.12) 08/19 Neutrophils (%) (Auto) 86.4 % 01/08/25 Lymphocytes (%) (Auto) 5.0 % 01/08/25 Monocytes # (Auto) 0.99 K/uL (0.11-0.59) H 01/08/25 Eosinophils # (Auto) 0.00 K/uL (0.00-0.50) 01/08/25 Immature Granulocyte % (Auto) 0.3 % 01/08/25 Neutrophils # (Auto) 10.48 K/uL (1.40-6.50) H 01/08/25 Lymphocytes # (Auto) 0.60 K/uL (1.20-3.40) L 01/08/25 Monocytes # (Auto) 0.99 K/uL (0.11-0.59) H 01/08/25 Eosinophils # (Auto) 0.00 K/uL (0.00-0.50) 01/08/25 Basophils # (Auto) 0.01 K/uL (0.00-0.20) 01/08/25 Immature Granulocyte # (Auto) 0.04 K/uL (0.01-0.20) 5 PG Care Time/CCT Total # of Minutes Spent Total Time Spent with Patient: Total time spent is greater than 50% in coordination of care (as documented) at patient's floor/unit and/or counseling patient: Coding Level of Care Code 17038 Post Operative Follow-Up Diagnoses Incarcerated left inguinal hernia K40.30
[2025-01-09] MEDS: POTASSIUM CHLORIDE CRTAB 20 MEQ TABCR PO STA (09:06)
[2025-01-09] MEDS: POTASSIUM CHLORIDE / WTR 10 MEQ/100 ML PLCT IV SCH (09:06)
--- NOTE | 2025-01-09 14:23 | Hospitalist Progress Note ---
Date of Service January 09, 2025 Assessment & Plan (1) Incarcerated left inguinal hernia: Plan: POD #2 - s/p open left incarcerated inguinal hernia repair with mesh, release of small bowel obstruction, diagnostic laparoscopy by Dr Ellis appreciate his assistance NG removed + stools since the surgery tolerated clears tolerating full liquids diet being advanced to regular repeat labs am (2) Small bowel obstruction: Plan: 2nd to #1 resolved (3) Atrial fibrillation with RVR: Plan: known history of a.fib on diltiazem only at the longterm but not anticoagulation remains on diltiazem drip can stop such, revert to chronic cardizem CD 180mg daily no chronic anticoagulation due to risks outweigh benefits?? would have to check with longterm on this echo with preserved EF TSH wnl replace low K (4) Acute kidney injury: Plan: baseline Cr 1.1 presented with Cr 2.1 likely prerenal in the setting of #1/#2 above as well as chronic lasix usage Cr today 1.5 resolving cont to hold lasix repeat BMP am of note - no urinary obstruction on CT a/p at admission (5) Schizophrenia: Plan: only takes Aricept chronically at longterm he is not on antipsychotic therapy chronically (6) Hypertension: Plan: cont diltiazem (7) Dementia: Plan: advanced lives in dementia portion of longterm check B12 level am (8) Hypokalemia: Plan: replace IV + PO today repeat level am check mag level in am as well Plan DVT proph - start heparin 5000 BID progressing Admission and Anticipated Discharge Date Admission Date: January 07, 2025 Subjective c/o pain in abdomen - oddly he points to the RLQ but his incision is in the LLQ due to dementia he does not offer history or ROS tolerating full liquids a.fib rates <100 no vomiting per staff last stool 01/08 Review of Systems Review of Systems: Unobtainable due to cognitive status Physical Exam Physical Exam: gen - resting comfortably in bed, laying flat in bed, pleasantly confused mouth - MMM heart - regular rate, s1 s2, irregularly irregular, no murmur lungs - CTA b/l abd - soft, NT, ND, BS+, dressings intact abdominal wall LUQ, incision LLQ clean/dry with intact annita ext - no edema, pulses 2+ b/l psych - oriented to self only Results & Data Results & Data Vital Signs (Past 12 Hours) Vital Signs Temp Pulse Pulse Resp BP Pulse Ox O2 Del Method 01/09/25 12:54 Nasal Cannula 01/09/25 10:49 36.4 C L 80 18 103/68 91 Nasal Cannula 01/09/25 07:41 37.2 C 81 17 106/65 95 Nasal Cannula 01/09/25 07:30 67 O2 Flow Rate 01/09/25 12:54 2 01/09/25 10:49 2 01/09/25 07:41 2 01/09/25 07:30 Laboratory Results Laboratory Results - last 24 hr 01/09/25 01/09/25 01/09/25 06:29 07:44 11:29 WBC 10.42 RBC 3.57 L Hgb 11.5 L Hct 35.2 L MCV 98.6 MCH 32.2 MCHC 32.7 RDW Std Deviation 51.8 H RDW Coeff of Sammy 14.2 Plt Count 131 MPV 13.3 H Sodium 144 Potassium 3.1 L Chloride 110 H Carbon Dioxide 27 Anion Gap 7 BUN 42 H Creatinine 1.56 H D Est Cr Clr Drug Dosing 34.1 eGFR 43.53 BUN/Creatinine Ratio 26.9 H Glucose 84 POC Glucose 88 121 H Calcium 8.1 L TSH 0.625 PG Care Time/CCT Total # of Minutes Spent Total Time Spent with Patient: Total time spent is greater than 50% in coordination of care (as documented) at patient's floor/unit and/or counseling patient: Coding Level of Care Code 60602 SUB INP/OBS CARE 2/35MIN Diagnoses Incarcerated left inguinal hernia K40.30 Small bowel obstruction K56.609 Atrial fibrillation with RVR I48.91 Acute kidney injury N17.9 Schizophrenia F20.9 Hypertension I10 Dementia F03.90 Hypokalemia E87.6
--- NOTE | 2025-01-09 14:47 | Electrocardiogram Report ---
Test Reason : Blood Pressure : */* mmHG Vent. Rate : 146 BPM Atrial Rate : * BPM P-R Int : * ms QRS Dur : 94 ms QT Int : 310 ms P-R-T Axes : * 40 241 degrees QTcB Int : 483 ms Atrial fibrillation with rapid ventricular response Septal infarct (cited on or before 27-Dec-2022) Abnormal ECG When compared with ECG of 07-Jan-2025 09:12, No significant change was found Confirmed by Jean-Paul Barrientos ([id number]) on 01/09/2025 2:47:22 PM Referred By: [facility] Confirmed By: Jean-Paul Barrientos
[2025-01-09] MEDS: dilTIAZem HCL 180 MG CAPCR PO SCH (16:58)
[2025-01-10 07:18] LABS: Hematocrit (blood only) 32.9 % (42.0-52.0); Hemoglobin 10.8 g/dl (14.0-18.0); Mean Corpuscular Hemoglobin 32.6 pg (25.0-34.0); Mean Corpuscular Hgb Conc 32.8 g/dL (32.0-36.0); Mean Corpuscular Volume 99.4 fL (80.0-100.0); Mean Platelet Volume 13.6 fL (9.4-12.4); Platelet Count 130 K/uL (130-400); RDW Coefficient of Variation 14.2 % (11.5-14.5); RDW Standard Deviation 52.1 fL (36.4-46.3); Red Blood Count 3.31 M/uL (4.70-6.10); White Blood Count 9.42 K/ul (4.8-10.8)
[2025-01-10 07:33] LABS: Calcium 7.9 mg/dl (8.6-10.3); Potassium 3.4 mmol/L (3.5-5.1)
[2025-01-10 07:39] LABS: BUN Creatinine Ratio 29.5 (10-20); Creatinine Clr Calc Pharmacy 43.6 ml/min
--- NOTE | 2025-01-10 08:24 | Surgery Progress Note ---
Date of Service January 10, 2025 Assessment & Plan (1) Incarcerated left inguinal hernia: Plan: Patient is POD#3 s/p ppen left incarcerated inguinal hernia repair with mesh, diagnostic laparoscopy release of small bowel obstruction -Last BM 01/08 per nursing staff, however is tolerating heart healthy diet without any reported issues of N/V -VSS, WBC wnl -Abdomen on exam is soft , non distended, mild TTP over surgical sites. Patient was pulling at annita overnight, dressing was re-applied to site. -Encourage ambulation as able, guards report pt uses a walker in snf -Continue care per primary team, anticipate possible d/c over the weekend. -[facility] general surgery covering over the weekend. Admission and Anticipated Discharge Date Admission Date: January 07, 2025 Supervising Physician Co-Signing Physician Notes Tolerating diet, no BM since 01/08, but not distended As long as remains stable and tolerating a diet today, likely can d/c back to snf tomorrow [facility] surgery covering over the weekend Subjective Patient resting in bed this morning. Has no complaints at this time Guards do report patient pulling at his annita and needed extra restraints because of this. Per nursing staff, last BM was 01/08. However tolerating diet without any N/V VSS Review of Systems Constitutional: no fever and no chills Gastrointestinal: + abdominal pain; no nausea and no vomit ing Genitourinary: + problem reported (gates cath ) Psychiatric: + confusion Physical Exam Constitutional: WD/WN, vitals as above Respiratory: normal respiratory effort; no respiratory distress Cardiovascular: Rate/Rhythm: regular rate Gastrointestinal (Abdomen): Abdomen soft, nondistended, appropriate TTP over surgical sites. Incisions with annita in place and c/d/i without signs of infection. Skin: no rashes, warm and dry Results & Data Vital Signs (Past 12 Hours) Vital Signs Temp Pulse Pulse Resp BP Pulse Ox O2 Del Method 01/10/25 03:16 36.5 C 83 17 108/68 95 Nasal Cannula 01/10/25 00:06 36.6 C 67 18 109/67 92 Nasal Cannula 01/09/25 22:00 75 01/09/25 20:52 36.6 C 77 17 107/64 94 Nasal Cannula O2 Flow Rate 01/10/25 03:16 1 01/10/25 00:06 1 01/09/25 22:00 01/09/25 20:52 1 PG Care Time/CCT Total # of Minutes Spent Total Time Spent with Patient: Total time spent is greater than 50% in coordination of care (as documented) at patient's floor/unit and/or counseling patient: Coding Level of Care Code 52512 Post Operative Follow-Up Diagnoses Incarcerated left inguinal hernia K40.30
[2025-01-10] MEDS: HEPARIN SOD 5,000 UNIT/0.5 ML VIAL SQ SCH (09:13)
[2025-01-10] MEDS: POTASSIUM CHLORIDE CRTAB 20 MEQ TABCR PO STA (09:13)
--- NOTE | 2025-01-11 05:13 | Hospitalist Progress Note ---
Date of Service January 10, 2025 Assessment & Plan (1) Incarcerated left inguinal hernia: Plan: POD #3 - s/p open left incarcerated inguinal hernia repair with mesh, release of small bowel obstruction, diagnostic laparoscopy by Dr Ellis appreciate his assistance NG removed + stools on 01/08 but none since tolerated clears & full liquids diet advanced to regular --> but his appetite is VERY poor which may be related to his dementia (suspect chronic poor appetite - he looks like he has been losing weight based on his bodily appearance) repeat labs am (2) Small bowel obstruction: Plan: 2nd to #1 resolved s/p surgical intervention (3) Atrial fibrillation with RVR: Plan: known history of a.fib on diltiazem only at the retirement but not anticoagulation controlled cont cardizem CD 180mg daily echo with preserved EF TSH wnl strongly consider anticoagulation in light of his surgery, high DVT risk, and the a.fib (4) Acute kidney injury: Plan: baseline Cr 1.1 presented with Cr 2.1 likely prerenal in the setting of #1/#2 above as well as chronic lasix usage Cr today 1.22 cont to hold lasix repeat BMP am of note - no urinary obstruction on CT a/p at admission (5) Schizophrenia: Plan: only takes Aricept chronically at retirement he is not on antipsychotic therapy chronically (6) Hypertension: Plan: cont diltiazem (7) Dementia: Plan: advanced lives in dementia portion of retirement B12 level wnl (8) Hypokalemia: Plan: just about normal today replace again repeat BMP am Plan DVT proph - heparin 5000 BID Pain control - tylenol 500mg TID scheduled; norco prn; morphine prn if norco doesn't help Consider Remeron for appetite stimulation but defer for now back to retirement once moving bowels more consistently & eating is better I asked the guards to allow us to get him into a recliner chair today Admission and Anticipated Discharge Date Admission Date: January 07, 2025 Subjective due to dementia patient unable to provide any ROS or history lying in bed flat has not been out of bed since his surgery has condom catheter in place - keeps slipping off drinking fluids but solids intake is very poor he did ask for applesauce during my visit retirement guards are ok if we get him into a recliner chair tele - a.fib, rates <100 no BM since 01/08/25 Review of Systems Review of Systems: Unobtainable due to cognitive status Physical Exam Physical Exam: gen - resting comfortably in bed, laying flat in bed, pleasantly confused, no agitation mouth - MMM heart - regular rate, s1 s2, irregularly irregular, no murmur lungs - CTA b/l abd - soft, NT, ND, BS+, dressings intact abdominal wall LLQ; annita upper abdomen clean; no peritoneal signs; scaphoid type abdomen - chronic weight loss?? ext - no edema, pulses 2+ b/l psych - oriented to self only Results & Data Results & Data Vital Signs (Past 12 Hours) Vital Signs Vital Signs Temp Pulse Resp BP Pulse Ox O2 Del Method O2 Flow Rate 01/10/25 19:15 36.7 C 77 19 116/73 97 Nasal Cannula 1 01/10/25 15:56 36.6 C 77 18 95/54 L 99 Nasal Cannula 1 01/10/25 12:00 36.7 C 79 16 100/61 97 Nasal Cannula 1 01/10/25 08:00 36.8 C 78 18 119/60 96 Nasal Cannula 1 Laboratory Results Laboratory Results - last 24 hr 01/10/25 01/10/25 01/10/25 06:13 07:50 11:23 WBC 9.42 RBC 3.31 L Hgb 10.8 L Hct 32.9 L MCV 99.4 MCH 32.6 MCHC 32.8 RDW Std Deviation 52.1 H RDW Coeff of Sammy 14.2 Plt Count 130 MPV 13.6 H Sodium 142 Potassium 3.4 L Chloride 111 H Carbon Dioxide 28 Anion Gap 3 BUN 36 H Creatinine 1.22 D Est Cr Clr Drug Dosing 43.6 eGFR 58.46 BUN/Creatinine Ratio 29.5 H Glucose 85 POC Glucose 86 83 Calcium 7.9 L Magnesium 2.0 Vitamin B12 1304 H PG Care Time/CCT Total # of Minutes Spent Total Time Spent with Patient: Total time spent is greater than 50% in coordination of care (as documented) at patient's floor/unit and/or counseling patient: Coding Level of Care Code 87477 SUB INP/OBS CARE 235MIN Diagnoses Incarcerated left inguinal hernia K40.30 Small bowel obstruction K56.609 Atrial fibrillation with RVR I48.91 Acute kidney injury N17.9 Schizophrenia F20.9 Hypertension I10 Dementia F03.90 Hypokalemia E87.6
[2025-01-11 08:18] LABS: Hematocrit (blood only) 35.8 % (42.0-52.0); Hemoglobin 11.5 g/dl (14.0-18.0); Mean Corpuscular Hemoglobin 32.5 pg (25.0-34.0); Mean Corpuscular Hgb Conc 32.1 g/dL (32.0-36.0); Mean Corpuscular Volume 101.1 fL (80.0-100.0); Mean Platelet Volume 14.3 fL (9.4-12.4); Platelet Count 148 K/uL (130-400); RDW Standard Deviation 52.6 fL (36.4-46.3); Red Blood Count 3.54 M/uL (4.70-6.10); White Blood Count 6.94 K/ul (4.8-10.8)
[2025-01-11 08:36] LABS: BUN Creatinine Ratio 32.7 (10-20); Calcium 7.9 mg/dl (8.6-10.3); Creatinine Clr Calc Pharmacy 54.3 ml/min; Potassium 3.3 mmol/L (3.5-5.1)
[2025-01-11] MEDS: POTASSIUM CHLORIDE CRTAB 20 MEQ TABCR PO SCH (09:35)
--- NOTE | 2025-01-11 10:27 | Surgery Progress Note ---
Date of Service January 11, 2025 Assessment & Plan (1) Incarcerated left inguinal hernia: Plan: Patient is POD#4 s/p ppen left incarcerated inguinal hernia repair with mesh, diagnostic laparoscopy release of small bowel obstruction -Last BM 01/08 per nursing staff, however is tolerating heart healthy diet without any reported issues of N/V -VSS, WBC wnl -Abdomen on exam is soft , non distended, mild TTP over surgical sites. -Encourage ambulation as able, guards report pt uses a walker in long term -Continue care per primary team, anticipate possible d/c over the weekend. Admission and Anticipated Discharge Date Admission Date: January 07, 2025 Subjective This seems to be doing well. Tolerating diet. Minimal pain. No nausea or vomiting. Has not had a bowel movement yet. Physical Exam Physical Exam: NAD, A&O x 3 Gastrointestinal (Abdomen): Inspection/Auscultation: abdomen not distended Percussion/Palpation: + abdomen tender (left groin at incision; incision with annita, no erythema or discharge) and abdomen soft Results & Data Vital Signs (Past 12 Hours) Vital Signs Temp Pulse Resp BP Pulse Ox O2 Del Method O2 Flow Rate 01/11/25 07:08 36.5 C 79 20 125/75 93 Room Air 01/11/25 03:24 36.4 C L 73 16 115/71 96 Nasal Cannula 1 01/10/25 23:26 36.6 C 89 21 112/68 93 Nasal Cannula 1
[2025-01-11] MEDS: CEROVITE ADV FORMULA TAB PO SCH (13:18)
[2025-01-11] MEDS: THIAMINE HCL 200 MG in SODIUM CHLORIDE 0.9% 50 ML IV STA (13:18)
--- NOTE | 2025-01-11 14:18 | Hospitalist Progress Note ---
Date of Service January 11, 2025 Assessment & Plan (1) Incarcerated left inguinal hernia: Plan: POD #4 - s/p open left incarcerated inguinal hernia repair with mesh, release of small bowel obstruction, diagnostic laparoscopy by Dr Ellis appreciate his assistance NG removed + stools on 01/08 but none since tolerating regular diet --> appetite much improved today repeat labs am doing well from surgical standpoint (2) Small bowel obstruction: Plan: 2nd to #1 resolved s/p surgical intervention (3) Atrial fibrillation with RVR: Plan: known history of a.fib on diltiazem only at the long term but not anticoagulation controlled cont cardizem CD 180mg daily echo with preserved EF TSH wnl strongly consider anticoagulation in light of his surgery, high DVT risk, and the a.fib - however, had severe epistaxis back in November, has had falls, etc. benefits may be outweighed by risks (4) Acute kidney injury: Plan: baseline Cr 1.1 presented with Cr 2.1 likely prerenal in the setting of #1/#2 above as well as chronic lasix usage Cr today 0.98 cont to hold lasix repeat BMP am of note - no urinary obstruction on CT a/p at admission (5) Schizophrenia: Plan: only takes Aricept chronically at long term he is not on antipsychotic therapy chronically (6) Hypertension: Plan: cont diltiazem (7) Dementia: Plan: advanced lives in dementia portion of long term B12 level wnl (8) Hypokalemia: Plan: replace again repeat BMP am (9) Severe protein-calorie malnutrition: Plan: at least 40kg weight loss since 12/2022 at minimum his advanced dementia is probably a big part of this could have occult malignancy would defer any w/u at this time in light of advanced age, advanced dementia, etc. add MVI add remeron 7.5mg HS for appetite stimulation add thiamine x 30 days Plan DVT proph - heparin 5000 BID Pain control - tylenol 500mg TID scheduled; norco prn; morphine prn if norco doesn't help d/c tele move to med/surg back to long term tomorrow? Admission and Anticipated Discharge Date Admission Date: January 07, 2025 Subjective tele - a.fib, rates <100 patient very talkative today at one point he said "so, when am I going back to my block?" (cell block at the long term) despite being talkative he is very confused from his dementia eating much better today no vomiting no stool today however staff this am attempted to get him from the bed to chair but he got upset and he was left in the bed Review of Systems Review of Systems: denied pain any location Physical Exam Physical Exam: gen - resting comfortably in bed, laying flat in bed, pleasantly confused, no agitation, very talkative today, looks good mouth - MMM heart - regular rate, s1 s2, irregularly irregular, no murmur lungs - CTA b/l abd - soft, NT, ND, BS+, annita upper abdomen clean, large incision LLQ with numerous annita intact; no peritoneal signs; scaphoid type abdomen - chronic weight loss?? ext - no edema, pulses 2+ b/l psych - oriented to self only Results & Data Results & Data Vital Signs (Past 12 Hours) Vital Signs Temp Pulse Resp BP Pulse Ox O2 Del Method O2 Flow Rate 01/11/25 11:46 Room Air 01/11/25 11:43 36.9 C 83 16 134/82 98 Room Air 01/11/25 07:08 36.5 C 79 20 125/75 93 Room Air 01/11/25 03:24 36.4 C L 73 16 115/71 96 Nasal Cannula 1 Laboratory Results Laboratory Results - last 24 hr 01/11/25 01/11/25 01/11/25 06:43 07:10 11:39 WBC 6.94 RBC 3.54 L Hgb 11.5 L Hct 35.8 L MCV 101.1 H MCH 32.5 MCHC 32.1 RDW Std Deviation 52.6 H RDW Coeff of Sammy 14.0 Plt Count 148 MPV 14.3 H Sodium 143 Potassium 3.3 L Chloride 107 Carbon Dioxide 30 Anion Gap 6 BUN 32 H Creatinine 0.98 Est Cr Clr Drug Dosing 54.3 eGFR 76.04 BUN/Creatinine Ratio 32.7 H Glucose 83 POC Glucose 85 97 Calcium 7.9 L 01/11/25 01/11/25 16:39 20:26 WBC RBC Hgb Hct MCV MCH MCHC RDW Std Deviation RDW Coeff of Sammy Plt Count MPV Sodium Potassium Chloride Carbon Dioxide Anion Gap BUN Creatinine Est Cr Clr Drug Dosing eGFR BUN/Creatinine Ratio Glucose POC Glucose 116 H 183 H Calcium PG Care Time/CCT Total # of Minutes Spent Total Time Spent with Patient: Total time spent is greater than 50% in coordination of care (as documented) at patient's floor/unit and/or counseling patient: Coding Level of Care Code 80402 SUB INP/OBS CARE 235MIN Diagnoses Incarcerated left inguinal hernia K40.30 Small bowel obstruction K56.609 Atrial fibrillation with RVR I48.91 Acute kidney injury N17.9 Schizophrenia F20.9 Hypertension I10 Dementia F03.90 Hypokalemia E87.6 Severe protein-calorie malnutrition E43
[2025-01-11] MEDS: MIRTAZAPINE TAB 15 MG TAB PO SCH (20:30)
[2025-01-11] MEDS: THIAMINE HCL 200 MG in SODIUM CHLORIDE 0.9% 50 ML IV SCH (20:30)
[2025-01-12 07:48] VITALS: BP 134/81; PULSE 87; RESP 18; TEMP 98.2; O2SAT 93
[2025-01-12 08:15] LABS: Potassium 3.8 mmol/L (3.5-5.1)
[2025-01-12 08:21] LABS: BUN Creatinine Ratio 31.5 (10-20); Creatinine Clr Calc Pharmacy 57.8 ml/min
--- NOTE | 2025-01-12 11:40 | Surgery Progress Note ---
Date of Service January 12, 2025 Assessment & Plan (1) Incarcerated left inguinal hernia: Plan: Patient is POD# s/p ppen left incarcerated inguinal hernia repair with mesh, diagnostic laparoscopy release of small bowel obstruction -Last BM 01/08 per nursing staff, however is tolerating heart healthy diet without any reported issues of N/V -VSS, WBC wnl -Abdomen on exam is soft , non distended, mild TTP over surgical sites. -Encourage ambulation as able, guards report pt uses a walker in group home He had a bowel movement. Will be discharged today. Admission and Anticipated Discharge Date Admission Date: January 07, 2025 Subjective doing well. Having diarrhea. No pain. Physical Exam Physical Exam: NAD, A&O x 3 Gastrointestinal (Abdomen): Inspection/Auscultation: abdomen not distended Percussion/Palpation: + abdomen tender (left groin at incision; incision with annita, no erythema or discharge) and abdomen soft Results & Data Vital Signs (Past 12 Hours) Vital Signs Temp Pulse Resp BP Pulse Ox O2 Del Method 01/12/25 07:48 36.8 C 87 18 134/81 93 Room Air
--- NOTE | 2025-01-12 12:15 | Discharge Summary ---
Discharge Summary Date of Service date of admission - January 07, 2025 date of discharge - January 12, 2025 Principal Dx & Hospital Course #1 = Principal Diagnosis (1) Incarcerated left inguinal hernia: Patient presented with evidence of SBO due to a large, incarcerated left inguinal hernia. He was taken to the OR urgently by Dr Silvestre Ellis, [facility] General Surgery, shortly after admission. Dr Ellis performed open left incarcerated inguinal hernia repair with mesh, release of small bowel obstruction, and diagnostic laparoscopy. The inguinal hernia contained not only a portion of small bowel but the sigmoid colon. On POD #1 he had several stools, NG tube was removed, and a clear liquid diet was started. Appetite was poor much of the first 2-3 days post-op. Despite the lack of appetite he did tolerate what was offered. Diet was ultimately advanced to low fiber. By day of discharge he was eating much more robustly. He also had a large bowel movement on day of discharge. From a surgical standpoint he did very well throughout the post-op period. Surgical incisions were clean & dry on day of discharge with intact katrin. He should f/u with Dr Ellis in the general surgery clinic within 10 days of discharge for post-op check. Katrin are to remain intact until time of follow-up. (2) Small bowel obstruction: 2nd to #1 resolved s/p surgical intervention (3) Atrial fibrillation with RVR: known history of a.fib on diltiazem only at the [facility] but not anticoagulation controlled with cardizem CD 180mg daily echo with preserved EF this admission TSH wnl strongly consider anticoagulation in light of his surgery, high DVT risk, and the a.fib - however, had severe epistaxis back in November 2024, has had falls, etc. benefits may be outweighed by risks defer to the [facility] biomedical engineering supervisor whether to institute systemic anticoagulation (4) Acute kidney injury: presented with Cr 2.1 likely prerenal in the setting of #1/#2 above as well as chronic lasix usage baseline Cr 1.1 Cr 0.92 on day of discharge would make lasix use PRN for weight gains or edema of note - no urinary obstruction on CT a/p at time of admission (5) Schizophrenia: only takes Aricept chronically at [facility] he is not on antipsychotic therapy chronically (6) Hypertension: cont diltiazem (7) Dementia: advanced cont aricept B12 level wnl added remeron 7.5mg HS to help with appetite, etc. (see below) (8) Hypokalemia: K 3.1 at lowest replace with IV/PO potassium resolved, discharge K level 3.8 magnesium level was wnl the entire stay (9) Severe protein-calorie malnutrition: at least 40kg weight loss since 12/2022 per records at minimum his advanced dementia is probably a big part of this could have occult malignancy would defer any w/u at this time in light of advanced age, advanced dementia, etc. added MVI added remeron 7.5mg HS for appetite stimulation added thiamine x 30 days Plan DVT proph - heparin 5000 BID utilized while here Notes For Next Care Provider f/u Dr Silvestre Ellis - [facility] Gen Surg - 10 days Medication Changes From Visit MVI daily Remeron 7.5mg HS for appetite stimulation tylenol 500mg TID scheduled x 7 days for pain control post-op Gratz 5's - 1 tab q6h prn pain (or similar) Admission HPI Per Admitting Provider Tyler is an 84-year-old male with PMH of unspecified dementia, schizophrenia, HTN, atrial fibrillation, and inguinal hernia. He presented from [facility] on 01/07 due to swelling of his left inguinal hernia x 3 days. Patient is a poor historian at baseline due to his underlying dementia. Correctional officers at bedside report he is around his cognitive baseline today. While he notes no pain at this time, he was complaining of severe lower/middle abdominal pain prior to coming into the hospital. Correctional officers also report that he had an episode of vomiting while in the emergency department. Patient reports that this hernia swelling has been worsening over the past 3 days. He reports no pain at time of admission. He is not oriented to name, month, year, location, or purpose in the hospital. He is oriented to his . Correctional officers at bedside believe he did not take his regular morning medicine today, and might have thrown up anything that was given. Patient denies smoking or history of smoking. Patient is tachycardic at 124 bpm at time of admission; vitals otherwise stable. ED course: NSS 1000 L IV x 2 Zofran 4 mg IV Morphine sulfate 4 mg IV Difficult to obtain ROS due to patient's underlying dementia and recent morphine administration; however: Patient denies fever, chills, night sweats, dizziness, lightheadedness, headache, chest pain, chest palpitations, SOB, cough, abdominal pain, N/V/D, pain at the hernia site, or changes in urinary bowel habits. Attempted to call [facility] Kim for additional details regarding patient's medication this morning/CODE STATUS, but was unable to reach. Discharge Exam gen - resting comfortably in bed, laying flat in bed, pleasantly confused, no agitation, looks good mouth - MMM heart - regular rate, s1 s2, irregularly irregular, no murmur lungs - CTA b/l abd - soft, NT, ND, BS+, katrin upper abdomen clean, large incision LLQ with numerous katrin intact; no peritoneal signs; scaphoid type abdomen - suspect 2nd chronic weight loss ext - no edema, pulses 2+ b/l psych - oriented to self only Discharge Plan Discharge Items [facility] Disposition[facility] Reason For Visit: HIGH-GRADE SBO Discharge Diagnosis: 1. Incarcerated left inguinal hernia with resulting small bowel obstruction - s/p Open left incarcerated inguinal hernia repair with mesh, release of small bowel obstruction, diagnostic laparoscopy - Silvestre Ellis DO 2. Severe protein calorie malnutrition/weight loss - 40kg of weight loss since 2022 3. Chronic afib 4. Dementia 5. H/o epistaxis 6. Schizophrenia Condition on Discharge: Good Activity: Per Instructions section Lifting: No more than 10 pounds Bathing Comment: you can shower. No soaking incisions Exercise/Sports: Wait until after follow-up appointment Non-emergency contact: Primary Care Provider and Surgeon Call non-emergency contact if: you have any medication questions, your symptoms worsen, your temperature is above 101.5, your wound has increased redness, your wound has increased drainage and your wound pain has increased Follow-up/Referrals: Silvestre Ellis DO [Physician] - (call office for follow up in 2 weeks ) Julio GOLD [Primary Care Provider] - Diet: Regular Diet Comment: Minced/moist texture due to lack of teeth Addtl Attending Provider Instructions: Recommendations: 1. Surgical dressing to be changed daily, or as needed. Katrin will remain in place until your follow up appointment. Please keep surgical area clean and dry. 2. Repeat BMP and magnesium level in 3-4 days for stability. Pending Studies at Discharge: No Stand-Alone Forms: My [facility] Skilled Items Patient informed of condition?: Yes Discharge Level of Care: Other Communicable Disease: No Discharge Prognosis: Stable Lines: None Urinary Catheter: No Medications and DC Order Prescriptions: New hydrocodone-acetaminophen 5-325 mg Tablet 1 tab PO Q6H PRN (Reason: pain) Qty: 10 0RF acetaminophen [Tylenol Extra Strength] 500 mg Tablet 500 mg PO TID 7 Days Qty: 21 0RF mirtazapine 15 mg Tablet 7.5 mg PO HS Qty: 30 2RF Cerovite Senior 0.4 mg-300 mcg- 250 mcg Tablet 1 tab PO QAM Qty: 30 5RF thiamine HCl (vitamin B1) 100 mg tablet 200 mg PO BID 30 Days Qty: 120 0RF Continued donepezil 5 mg Tablet 5 mg PO QAM diltiazem HCl [Cardizem CD] 180 mg Capsule,Extended Release 24hr 180 mg PO DAILY donepezil 10 mg Tablet 10 mg PO HS cyanocobalamin (vitamin B-12) [Vitamin B-12] 1,000 mcg Tablet 1,000 mcg PO DAILY Changed furosemide 40 mg Tablet 40 mg PO QAM PRN (Reason: lower extremity edema or weight gain) Qty: 10 0RF potassium chloride 20 mEq Tablet,Er Particles/Crystals 20 meq PO DAILY PRN (Reason: only when you take furosemide) Qty: 10 0RF Discontinued loperamide [Anti-Diarrheal (loperamide)] 2 mg Tablet 4 mg PO TID PRN (Reason: Diarrhea) Discharge Orders: Discharge Order (Routine); Ordered 01/12/25 Ordered By: Lakhwinder Elam Admission Data Admit Date/Time: 01/07/25 11:56 Attending Provider: Lakhwinder Elam Admit Provider: Lakhwinder lAex Primary Care Provider: Julio GOLD Other Providers: Silvestre Ellis Other Interventions: Discharge Summary Assessment (RN) Last Done: 01/12/25 14:53 Hospital Stay Data Consultations General Surgery - Dr Silvestre Ellis Procedures Performed Operation Date: 01/07/25 10:30 Actual Procedures p Open left incarcerated inguinal hernia repair with mesh, (Left) - DO alexus Cavazos diagnostic laparoscopy - DO alexus Cavazos release of small bowel obstruction, - Silvestre Ellis DO Echocardiogram - Diagnostic Imagining Performed Abdomen/Pelvis CT 01/07/25 09:48 CT OF THE ABDOMEN AND PELVIS WITHOUT CONTRAST CLINICAL HISTORY: Hernia. Abdominal pain. COMPARISON STUDY: CT of the abdomen and pelvis May 02, 2024. TECHNIQUE: Axial images of the abdomen and pelvis were obtained without IV contrast. Images were reviewed in the axial, sagittal, and coronal planes. Automated exposure control was utilized for the study. A dose lowering technique was utilized adhering to the principles of ALARA. FINDINGS: Visualized portions of the lung bases are unremarkable. No pneumatosis, free air or portal venous gas is present. Evaluation of the abdomen and pelvis is suboptimal on this unenhanced exam. There are gallstones within the gallbladder. No evidence for acute cholecystitis. Several hypodense hepatic lesions are unchanged since CT of May 02, 2024. These measure up to 1.3 cm per there is no biliary or pancreatic ductal dilatation. There is no hydronephrosis. Unenhanced images of the spleen, adrenal glands, kidneys and pancreas are unremarkable. Bilateral hip arthroplasties are incidentally noted. A large left inguinal hernia is again noted. This contains the sigmoid colon and multiple loops of small bowel. The proximal small bowel, proximal to the hernia is moderately dilated and fluid-filled, measuring up to 4.4 cm in caliber. The stomach is also markedly distended with air-fluid level. Transition point within the left lower quadrant, at the superior aspect of the hernia on image 263 is noted. Multiple loops of dilated fluid-filled small bowel within the hernia sac are present. There is associated mesenteric stranding. There is a small amount of ascites within the hernia sac, within the left hemiscrotum. No fluid collections are present. Images of the pelvis are degraded by streak artifact from bilateral hip arthroplasties. IMPRESSION: Findings consistent with a high-grade small bowel obstruction related to a large left inguinal hernia which contains multiple small bowel loops and the sigmoid colon. The small bowel and stomach proximal to the hernia are fluid-filled and dilated. Distal small bowel decompressed. Multiple dilated fluid filled loops within the left hemiscrotum. Therefore, a closed loop obstruction within the hernia sac cannot be excluded. Associated mesenteric stranding and a small amount of ascites. The findings suggest an incarcerated and possibly strangulated hernia. Surgical consultation is recommended. ACT 112: Negative or not required by law. Electronically signed by: Eliseo Wilson M.D. 01/07/2025 10:28 AM KUB X-Ray 01/07/25 16:39 Exam: Abdomen single view Reason for exam: Nasogastric tube placement status post hernia repair and bowel resection. Previous studies: None FINDINGS: Nasogastric tube is seen with the tip in the mid epigastric region and could be advanced approximately 6 cm. Gastric air bubble is moderately distended with diffuse distention of small bowel loops is likely postoperative ileus. Free air is seen beneath the right hemidiaphragm most likely from the recent bowel resection surgery. Clips are seen in the left midabdomen. IMPRESSION: 1. Nasogastric tube probably within the proximal stomach although should be advanced approximately 6 cm. 2. Diffuse gaseous distention of the GI tract consistent with postoperative ileus. 3. Pneumoperitoneum most likely postoperative in nature. 4. Follow-up exam recommended. Electronically signed by Ashkan Mckoen 01-07-2025 5:58 PM KUB X-Ray 01/07/25 20:16 Exam(s): XR KUB EXAM: XR Abdomen, 1 View CLINICAL HISTORY: Reason for exam: NG placement. TECHNIQUE: Frontal supine view of the abdomen/pelvis. COMPARISON: No relevant prior studies available. FINDINGS/IMPRESSION: 1. Enteric tube with tip at the level of the distal esophagus and side port in the mid esophageal level. Recommend advancing 15 cm. Electronically signed by: Diaz Suero M.D. 01/07/25 22:19 PM Chest X-Ray 01/07/25 22:33 Exam(s): XR CXR 1 VIEW EXAM: XR Chest, 1 View CLINICAL HISTORY: Reason for exam: hypoxia. TECHNIQUE: Frontal view of the chest. COMPARISON: 05/02/24 FINDINGS/IMPRESSION: 1. Enteric tube with tip at the level of the distal esophagus. 2. Stable cardiomegaly. 3. No airspace consolidation, pleural effusion, or pneumothorax. 4. No acute osseous findings. Electronically signed by: Diaz Suero M.D. 01/08/25 00:50 AM KUB X-Ray 01/07/25 23:54 EXAM: XR KUB/Abdomen 1 view CLINICAL HISTORY: NG placement. TECHNIQUE: X-ray images of the abdomen were obtained in frontal projection. COMPARISON: 01/07/2025, XR KUB/Abdomen FINDINGS: Chest leads are seen projecting over the visualized part of the chest and upper abdomen. A tube is extending from the visualized part of the chest with a tip that appears to be below the left hemidiaphragm. Gas Pattern: Prominent small bowel loops are identified Mildly prominent gas-filled large bowel shadows. Soft Tissues: Soft tissues of the abdomen appear normal without evidence of masses or calcifications. The liver is normal in position. The rest of the abdominal visceral shadows are not visualized due to gases Reduced bone density Degenerative changes are identified in visualized spine with osteophytes Mild scoliosis was identified in the visualized spine with convexity towards the right side IMPRESSION: 1. A tube is extending from the visualized part of the chest with a tip that appears to be below the left hemidiaphragm, further towards the left side in the current examination, in comparison to the last examination likely a nasogastric tube however, its other end is not visualized. 2. Prominent small bowel loops and mildly prominent gas-filled large bowel shadows are more evident in the present examination. If clinically required CT scan may be obtained to rule out intestinal obstruction/ileus. 3. A stable NG tube tip is likely in the stomach however the fenestrate is likely to be in the lower esophagus/esophagogastric junction. 4. A previously seen questionable gas shadow under the right diaphragm is not present at this time. Electronically signed by Valentin Kraus 01-08-2025 01:27 AM Pending Results Patient Have Any Pending Studies at Discharge: No Discharge Instructions Given to Patient (Per Discharging Provider) Recommendations: 1. Surgical dressing to be changed daily, or as needed. Katrin will remain in place until your follow up appointment. Please keep surgical area clean and dry. 2. Repeat BMP and magnesium level in 3-4 days for stability. Total Time Total Time Spent Total Time Spent (In Minutes): 60 Coding Level of Care Code 43545 INP/OBS DISCH >30 MIN Diagnoses Incarcerated left inguinal hernia K40.30 Small bowel obstruction K56.609 Atrial fibrillation with RVR I48.91 Acute kidney injury N17.9 Schizophrenia F20.9 Hypertension I10 Dementia F03.90 Hypokalemia E87.6 Severe protein-calorie malnutrition E43
== END 2025-01-12 15:45 | DRG 335 ==
LOC: ED 08:10 → SUATTDRO 11:56 → 2S 11:56 → 3E 01-11 15:45
DX: F03.90 Unspecified dementia, unspecified severity, without behavioral disturbance, psychotic disturbance, mood disturbance, and anxiety; E87.6 Hypokalemia; N17.9 Acute kidney failure, unspecified; E43 Unspecified severe protein-calorie malnutrition; I10 Essential (primary) hypertension; F20.9 Schizophrenia, unspecified; I48.91 Unspecified atrial fibrillation; K40.30 Unilateral inguinal hernia, with obstruction, without gangrene, not specified as recurrent